=== PATIENT | female | born 1950 | race Caucasian/White ===

== ENCOUNTER 2018-02-22 21:34 | Emergency (ER) | payer BC, OTHER | END 2018-02-22 21:58 | disposition home or self-care (01) | LOC: SCSER 21:34 | DX: L03.114 Cellulitis of left upper limb (principal); I25.2 Old myocardial infarction; E11.9 Type 2 diabetes mellitus without complications; Z87.891 Personal history of nicotine dependence; Z79.899 Other long term (current) drug therapy; Z79.4 Long term (current) use of insulin | CPT/HCPCS: 99283 ==

== ENCOUNTER 2018-07-20 01:42 | Emergency (ER) | payer BC, MEDICARE ==
[2018-07-20] MEDS ORDERED: Ondansetron HCl/PF 4 MG/2 ML Vial ONE (01:57)
[2018-07-20] MEDS ORDERED: Morphine 4 MG/ML VIAL ONE ×2 (01:57→04:55)
[2018-07-20 02:15] LABS: #Eosinphils 0.2 thou/uL (0.0-0.7); #Lymphocytes 1.7 thou/uL (1.20-3.40); #Monocytes 0.9 thou/uL (0.11-0.59); #Neutrophils 10.1 thou/uL (1.40-6.50); %Basophils 0.3 % (0.0-1.0); %Eosinophils 1.8 % (0.0-10.0); Hemoglobin 9.8 g/dL (12.0-16.0); Mean Corpuscular HGB CONC 32.2 g/dL (32.0-36.0); Mean Corpuscular Hemoglobin 27.8 pg (27.0-31.0); Mean Corpuscular Volume 86.3 fL (78.0-98.0); Mean Platelet Volume 6.9 fL (7.4-10.4); Platelet Count 344 thou/uL (130-400); RBC Distribution Width 14.8 % (11.5-14.5); Red Blood Cell (RBC) Count 3.54 mill/uL (4.20-5.40)
[2018-07-20 02:32] LABS: ALT (SGPT) 13 U/L (8-55); AST (SGOT) 16 U/L (5-34); Albumin 3.6 g/dL (3.4-4.8); Alkaline Phosphatase 94 U/L (40-150); Anion Gap 14 mmol/L (10-20); BUN (Urea Nitrogen) 44 mg/dL (9.8-20.1); Bilirubin, Total 0.5 mg/dL (0.2-1.2); Calc. Creatinine Clearance 0 mL/min (70-130); Calcium 9.3 mg/dL (7.8-10.44); Carbon Dioxide 20 mmol/L (23-31); Chloride 107 mmol/L (98-107); Estimated GFR-MDRD 29; Globulin 4.1 g/dL (2.4-3.5); Glucose 127 mg/dL (80-115); Potassium 4.8 mmol/L (3.5-5.1); Protein, Total 7.7 g/dL (6.0-8.3); Sodium 136 mmol/L (136-145)
[2018-07-20] MEDS ORDERED: HYDROcodone/Acetaminophen 5/325 mg Tablet ONE (04:55)
--- NOTE | 2018-07-20 08:02 | RAD ---
LEFT HIP TWO VIEWS: 07/20/2018 HISTORY: Left hip pain after a fall. FINDINGS: No acute fracture or dislocation is seen involving the left hip. No lytic or sclerotic osseous lesio ns are seen. There are osseous corticated densities seen lateral to the greater tuberosity, which ma y be related to tug type lesions or prior injury. Vascular calcifications are seen in the superficia l femoral artery. No other findings. IMPRESSION: No acute osseous abnormality, left hip. POS: [facility]
--- NOTE | 2018-07-20 08:03 | RAD ---
PORTABLE AP CHEST X-RAY: 07/20/2018 HISTORY: Trauma. Left hip pain after fall at home. COMPARISON: 11/16/2014 FINDINGS: The cardiac silhouette is magnified by projection. The pulmonary vasculature is within normal limits . The lungs are clear. Vascular calcification is seen in the coronary arteries and in the thoracic aorta. The lungs are clear. Degenerative changes are seen in the spine. IMPRESSION: No acute cardiopulmonary process. POS: [facility]
--- NOTE | 2018-07-20 08:05 | RAD ---
LEFT HUMERUS TWO VIEWS: 07/20/2018 HISTORY: The patient fell at home. Left hip pain. FINDINGS: There is a metallic electronic device overlying the subcutaneous soft tissues, anterior aspect of the mid left arm. There is no fracture or dislocation seen involving the left humerus. No other osseou s abnormality. IMPRESSION: No acute osseous abnormality, left humerus. POS: [facility]
--- NOTE | 2018-07-20 08:07 | RAD ---
AP VIEW PELVIS: DATE: 07/20/18. HISTORY: Left hip pain after a fall at home. FINDINGS: There is no acute fracture or dislocation. Degenerative changes are seen in the spine. Vascular phil cification is seen in the superficial femoral arteries bilaterally. Phleboliths overlie the right he mipelvis. IMPRESSION: No acute osseous abnormality. POS: [facility]
--- NOTE | 2018-07-20 09:07 | CT ---
PRELIMINARY REPORT/[facility]/EMERGENCY AFTER HOURS PROCEDURE: EXAM: CT Left Lower Extremity Without Intravenous Contrast, Hip EXAM DATE/TIME: Exam ordered 07/20/2018 3:15 AM CLINICAL HISTORY: 67 years old, female; Injury or trauma; Fall; Initial encounter; Abrasion; Hip; Left; Patient HX: Pt fell at home; Left hip pain TECHNIQUE: Axial computed tomography images of the left hip without intravenous contrast. COMPARISON: No relevant prior studies available. FINDINGS: Bones/joints: Normal. No acute fracture. No dislocation. Soft tissues: Normal. IMPRESSION: Normal left hip CT. Thank you for allowing us to participate in the care of your patient. Dictated and Authenticated by: Zack Beltre MD 07/20/2018 4:40 AM Central Time ([place] & [place]) FINAL REPORT CT LEFT HIP NONCONTRAST: DATE: 07/20/18. TIME: Performed on an emergency basis at 0381 hours. HISTORY: Fall. Left hip injury. FINDINGS: Agree with the preliminary report by Dr. Beltre from [facility]. Prominent osteoarthritic melonie nges. No acute osseous abnormalities are demonstrated. POS: [facility]
--- NOTE | 2018-07-28 12:19 | EKG ---
Test Reason : Blood Pressure : / mmHG Vent. Rate : 090 BPM Atrial Rate : 090 BPM P-R Int : 158 ms QRS Dur : 078 ms QT Int : 378 ms P-R-T Axes : 046 -32 052 degrees QTc Int : 462 ms Normal sinus rhythm Left axis deviation Pulmonary disease pattern Abnormal ECG Confirmed by IMANI FRANK ([id number]), tape editor SHARON STEWART ([id number]) on 07/28/2018 12:19:00 PM Referred By: ZAC Confirmed By:IMANI FRANK
== END 2018-07-20 06:18 | disposition home or self-care (01) ==
LOC: ERS 01:42
DX: S70.02XA Contusion of left hip, initial encounter (principal); E11.9 Type 2 diabetes mellitus without complications; I25.2 Old myocardial infarction; Z87.891 Personal history of nicotine dependence; Z79.899 Other long term (current) drug therapy; W06.XXXA Fall from bed, initial encounter
CPT/HCPCS: 71045; 72170; 80053; 85025; 93005; 96361; 96374; 96375; 96376; J2270; J2405

== ENCOUNTER 2018-07-22 13:02 | Inpatient (IN) | payer BC, MEDICARE ==
[2018-07-22 14:16] LABS: Hemoglobin 9.1 g/dL (12.0-16.0); Mean Corpuscular HGB CONC 31.9 g/dL (32.0-36.0); Mean Corpuscular Hemoglobin 27.5 pg (27.0-31.0); Mean Corpuscular Volume 86.1 fL (78.0-98.0); Mean Platelet Volume 6.3 fL (7.4-10.4); Platelet Count 391 thou/uL (130-400); RBC Distribution Width 14.9 % (11.5-14.5); White Blood Cell (WBC) Count 20.4 thou/uL (4.8-10.8)
[2018-07-22 14:21] LABS: Bilirubin Small (Negative); Blood, Urine Negative (Negative); Clarity CLOUDY (Clear); Glucose, Urine (Dipstick) Negative (Negative); Leukocyte Negative (Negative); Nitrite Negative (Negative); Protein, Urine (Dipstick) 30 mg/dL (Neg-Trace)
[2018-07-22 14:24] LABS: RBC/HPF 0-3 HPF (0-3); WBC/HPF 0-3 HPF (0-3)
[2018-07-22 14:27] LABS: Pathc Cast-AUWi Flag 26.45 (0-2.49); Yeast-AUWi Flag 50.1 (0-25.0)
[2018-07-22 14:31] LABS: Anisocytosis SLIGHT = 6-15 cells (100X) (0-5/hpf); Band 13 % (5-11); Hypochromia SLIGHT = 6-15 cells (100X) (0-5/hpf); Lymphocytes 7 % (21-51); MDiff Complete? YES; Monocytes 4 % (0-10); Neutrophil 76 % (42-75); PLT Morphology Comment Appears Adequate
[2018-07-22 14:33] LABS: ALT (SGPT) 19 U/L (8-55); AST (SGOT) 30 U/L (5-34); Albumin 3.2 g/dL (3.4-4.8); Alkaline Phosphatase 101 U/L (40-150); Anion Gap 16 mmol/L (10-20); BUN (Urea Nitrogen) 52 mg/dL (9.8-20.1); Bilirubin, Total 0.7 mg/dL (0.2-1.2); CK (CPK) 379 U/L (29-168); Calc. Creatinine Clearance 0 mL/min (70-130); Calcium 9.2 mg/dL (7.8-10.44); Carbon Dioxide 16 mmol/L (23-31); Chloride 102 mmol/L (98-107); Estimated GFR-MDRD 29; Globulin 4.3 g/dL (2.4-3.5); Glucose 110 mg/dL (80-115); Potassium 4.8 mmol/L (3.5-5.1); Protein, Total 7.5 g/dL (6.0-8.3); Sodium 129 mmol/L (136-145)
[2018-07-22 14:37] LABS: CKMB 4.4 ng/mL (0-6.6); Troponin I Less than 0.010 ng/mL (< 0.028)
[2018-07-22 14:38] LABS: Bacteria/HPF 1+ HPF (None Seen); Hyaline Casts/LPF NONE SEEN LPF (0-3 Hyaline); Manual Microscopic Reviewed? No Path Casts Seen; Yeast-All Forms None Seen HPF (None Seen)
--- NOTE | 2018-07-22 14:55 | CT ---
NONCONTRAST HEAD CT: HISTORY: Generalized weakness. FINDINGS: No parenchymal hemorrhage. No extraaxial hematoma. No midline shift. Basilar cisterns are patent. Brain volume, age appropriate. Cortical briseno-white matter differentiation is preserved. No evidence of hydrocephalus. Calvarium is intact. Adequate aeration of the sinuses and mastoid air cells. IMPRESSION: No acute intracranial process. POS: [facility]
--- NOTE | 2018-07-22 14:59 | RAD ---
PORTABLE CHEST: DATE: 07/22/18. PROVIDED CLINICAL HISTORY: Fall. FINDINGS: Comparison 07/20/18. The cardiac silhouette remains enlarged. Vascular calcification involves the ao rtic arch. No focal consolidation, pleural fluid, or pneumothorax apparent. IMPRESSION: No evidence for an acute cardiopulmonary process. POS: [facility]
--- NOTE | 2018-07-22 15:00 | RAD ---
PELVIC RADIOGRAPH: DATE: 07/22/18. PROVIDED CLINICAL HISTORY: Hip pain status post fall. FINDINGS: Comparison is made with the examination dated 07/20/18. There is no evidence for fracture or other ac ronan osseous abnormality. If there is persistent clinical concern, conservative management and follow up imaging are advised. IMPRESSION: As above. POS: [facility]
[2018-07-22] MEDS ORDERED: Bisacodyl 5 MG TAB PO PRN (18:05)
[2018-07-22] MEDS ORDERED: Calcium Carbonate 500 MG ChewTAB PO PRN (18:05)
[2018-07-22] MEDS ORDERED: Mag-Al 1200 mg/1200 mg/30 ML UDCUP PO PRN (18:05)
[2018-07-22] MEDS ORDERED: Senokot 8.6 MG TAB PO PRN (18:05)
[2018-07-22] MEDS ORDERED: Cepastat Lozenges 1 LOZ PO PRN (18:17)
[2018-07-22 19:59] LABS: Lactic Acid 0.8 mmol/L (0.5-2.2)
[2018-07-22 20:02] LABS: Anion Gap 13 mmol/L (10-20); BUN (Urea Nitrogen) 44 mg/dL (9.8-20.1); Calc. Creatinine Clearance 0 mL/min (70-130); Calcium 8.9 mg/dL (7.8-10.44); Carbon Dioxide 19 mmol/L (23-31); Chloride 102 mmol/L (98-107); Estimated GFR-MDRD 30; Glucose 92 mg/dL (80-115); Potassium 4.8 mmol/L (3.5-5.1); Sodium 129 mmol/L (136-145)
[2018-07-22 20:08] LABS: Troponin I Less than 0.010 ng/mL (< 0.028)
[2018-07-22] MEDS: Famotidine/PF 20 mg/2ml Vial SLOW IVP SCH (21:34)
[2018-07-22] MEDS: Sodium Chloride 0.9% 1,000 ML IV SCH (21:35)
[2018-07-22] MEDS: Heparin 5,000 UNITS/ML VIAL SC SCH (21:47)
--- NOTE | 2018-07-22 21:54 | ULT ---
STANDARD BILATERAL RENAL ULTRASOUND: HISTORY: Acute kidney injury. COMPARISON: None. TECHNIQUE: Real-time, briseno-scale, and color evaluation of the kidneys and urinary bladder were performed. FINDINGS: The right kidney measures 10.7 x 4.8 x 4.6 cm. The left kidney measures 10.7 x 5 x 4.8 cm. No renal mass, hydronephrosis, or abnormal calcifications. The ureteral jets are not seen. The urinary blad elgin is unremarkable. Cholelithiasis is present. IMPRESSION: No evidence of acute obstructive uropathy. POS: [facility]
[2018-07-22 22:01] VITALS: BMI 33.3
[2018-07-23 00:06] LABS: Creatinine, Urine 190.53 mg/dL (47-110); Sodium, Urine Less than 20 mmol/L (Not Available)
[2018-07-23] MEDS: HYDROcodone/Acetaminophen 5/325 mg Tablet PO PRN ×4 (00:32→20:08)
--- NOTE | 2018-07-23 05:58 | PDOC.EVN ---
Event Note - Event Note Event Note: Pt admitted 07/22/18 h&p [id number]
[2018-07-23 05:59] LABS: #Eosinphils 0.1 thou/uL (0.0-0.7); #Lymphocytes 1.1 thou/uL (1.20-3.40); #Monocytes 0.9 thou/uL (0.11-0.59); #Neutrophils 14.8 thou/uL (1.40-6.50); %Basophils 0.1 % (0.0-1.0); %Eosinophils 0.4 % (0.0-10.0); %Lymphocytes 6.5 % (21.0-51.0); Mean Corpuscular HGB CONC 31.6 g/dL (32.0-36.0); Mean Corpuscular Hemoglobin 27.3 pg (27.0-31.0); Mean Corpuscular Volume 86.5 fL (78.0-98.0); Mean Platelet Volume 6.2 fL (7.4-10.4); Platelet Count 369 thou/uL (130-400); RBC Distribution Width 14.8 % (11.5-14.5); Red Blood Cell (RBC) Count 2.93 mill/uL (4.20-5.40); White Blood Cell (WBC) Count 16.9 thou/uL (4.8-10.8)
[2018-07-23] MEDS: Sodium Chloride 0.9% 1,000 ML IV SCH ×2 (06:15→17:01)
[2018-07-23] MEDS: Levothyroxine Sodium 75 MCG TAB PO SCH (06:19)
[2018-07-23 06:23] LABS: Anion Gap 9 mmol/L (10-20); BUN (Urea Nitrogen) 18 mg/dL (9.8-20.1); Calc. Creatinine Clearance 67 mL/min (70-130); Calcium 8.3 mg/dL (7.8-10.44); Carbon Dioxide 19 mmol/L (23-31); Chloride 105 mmol/L (98-107); Estimated GFR-MDRD 40; Glucose 86 mg/dL (80-115); Potassium 4.4 mmol/L (3.5-5.1); Sodium 129 mmol/L (136-145)
--- NOTE | 2018-07-23 06:49 | HP ---
PRIMARY CARE PHYSICIAN: Terell Benson. CHIEF COMPLAINT: Weakness and falling with decreased appetite. HISTORY OF PRESENT ILLNESS: This is a 67-year-old female with a known history of coronary artery dis ease, status post percutaneous coronary intervention, type 2 diabetes who reports multiple progressiv e issues. The patient has been complaining of having a week long history of a sore throat which has resulted in decreased oral intake. She subsequently has been feeling very weak and fell this past Fr iday or approximately 2 days prior to presentation with subsequent hip pain. The patient most recently was treated at an urgent care clinic for presumed cellulitis. Antibiotics, seemingly clindamycin, were started 2 weeks ago for a 2 week duration and the patient has been statu s post completion of her antibiotic course for approximately 3 days. During this time frame of antib iotic use the patient also had frequent diarrhea which is currently resolved. However, even with jerome rrhea resolution the patient's oral intake has been decreased secondary to the sore throat she descri bed above. The patient has been trying over the counter lozenges for her strep throat which appeared to have been improving that single symptom. REVIEW OF SYSTEMS: As per HPI. CONSTITUTIONAL: No documented fever or chills. HEENT: The patient initially had a headache upon presentation to the ER, which is currently resolved . Denies any vision changes. Denies any dizziness or lightheadedness, generalized weakness as descr ibed above. CARDIOVASCULAR: Denies any chest pain, chest pressure, left-sided arm numbness or tingling, denies p alpitations. RESPIRATORY: Denies shortness of breath. Denies cough, sore throat as described as above. Some mil d congestion throughout as well. GASTROINTESTINAL: Decreased oral intake as noted above without nausea or vomiting. No abdominal saleem n. Diarrhea as per HPI, which is currently resolved. GENITOURINARY: Some mild dysuria, otherwise no change in urinary quantity, color or odor. MUSCULOSKELETAL: Left hip pain status post fall, but otherwise no other focal myalgias or arthralgia s. PAST MEDICAL HISTORY: As per above. 1. Significant for insulin-dependent type 2 diabetes. 2. Hypothyroidism. 3. Coronary artery disease, status post PCI in 2003. 4. Status post bilateral shoulder surgery. 5. Status post right hand carpal tunnel release. 6. Status post . 7. Status post tubal ligation. 8. Status post partial hysterectomy. HOME MEDICATIONS: Current regimen includes the followin. Dulaglutide 0.75 mg subcutaneously every 7 days. 2. Prasugrel 10 mg p.o. daily. 3. Sertraline 100 mg p.o. at bedtime. 4. Metoprolol tartrate 25 mg p.o. daily. 5. Levothyroxine 75 mcg p.o. daily. 6. Lisinopril 2.5 mg p.o. daily. 7. Lantus SoloSTAR 50 units subcu q.p.m. 8. Atorvastatin 20 mg p.o. at bedtime. 9. Metformin 500 mg p.o. at bedtime. ALLERGIES: LATEX, ADHESIVE TAPE, LIDOCAINE. FAMILY HISTORY: The patient denies any known family history of gastrointestinal illness. SOCIAL HISTORY: The patient is a former tobacco smoker, quit approximately 10 years ago. She is acc ompanied by her daughter, Yamilet, who was at bedside with her in the emergency department. The [facility] ent does name Yamilet as her medical decision maker if she is unable to make her own medical decision s, and currently endorses being full code. PHYSICAL EXAMINATION: GENERAL: The patient is awake, alert, conversant, in no acute distress, lying on the hospital ER str etcher. HEENT: Normocephalic, atraumatic, slightly dry mucous membranes, difficulty visualizing posterior or opharyngeal mucosa, no sinus tenderness to palpation. CARDIOVASCULAR: S1, S2. No overt murmurs, rubs or gallops. Pulses 2+ bilateral upper Bilateral low er extremities; trace pitting pedal edema. RESPIRATORY: Reasonable air movement. No wheezes, rales or rhonchi. No conversational dyspnea. GASTROINTESTINAL: Positive bowel sounds. Soft, nontender to palpation. MUSCULOSKELETAL: Moving all 4 extremities independently and able to self-reposition in the bed witho ut difficulty or assistance. The patient is notably currently on 4 liters nasal cannula in the emergency department. LABORATORY DATA AND IMAGING: WBC 20.4, hemoglobin 9.8, hematocrit 28.4, platelets 391, neutrophils 7 6%, bands 13%. Sodium 129, potassium 4.8, chloride 102, bicarbonate 16, BUN 52, creatinine 1.74, glu cose 110, calcium 9.2, total bilirubin 0.7, AST 30, ALT 19, alkaline phosphatase 101. Creatinine kin ase 379. Troponin less than 0.01. Total protein 7.5, albumin 3.2. UA is significant for 30 protein , small bilirubin, 11-20 squamous epithelial cells, 1+ urine bacteria. 1. 07/22/2016 - Chest x-ray. Impression: "No evidence for an acute cardiopulmonary process." 2. 07/22/2018 - Pelvis x-ray. Impression: "Comparison is made with examination dated 07/20/2018. There is no evidence for fracture or other acute osseous abnormality. If there is persistent clinica l concern, conservative management and follow up imaging are advised." 3. 07/22/2018 - Brain CT. Impression: "No acute intracranial process." ASSESSMENT AND PLAN: A 67-year-old female who presents with multiple complaints including weakness a nd decreased p.o. or oral intake for a week. 1. Weakness, likely multifactorial, contributors including recent diarrheal illness, decreased oral intake, all contributing to a component of dehydration. Continue with hydration and close monitoring of intake and output. 2. Decreased oral intake, appears to be currently driven predominantly by odynophagia described by t pam patient. Continue with supportive management, swab for possibility of strep. 3. Leukocytosis of unclear etiology. The patient's UA is suggestive of the possibility of urinary t ract infection versus a dirty urine. Recheck a UA, check urine culture for confirmation, and add emp iric antibiotics given the patient's overall presentation. Recheck CBC in the morning. Chest x-ray unrevealing. Check a lactic acid. Unclear if there is a source of infection, particularly where it may be. Check for Clostridium difficile or any other stool infection as the patient does have recurr ent diarrhea, however, she denies having had any in the last 3 days. 4. Recent diarrhea, likely consistent with antibiotic use as the patient was on clindamycin. While this raises the patient's risk of Clostridium difficile diarrhea, the patient currently has not had a ny loose bowel movements for the last 3 days. 5. Acute kidney injury without known history of chronic renal disease. Continue to closely monitor, suspect a prerenal etiology. Check urine electrolytes, check renal ultrasound, repeat a BMP. 6. Hyponatremia, as the patient is clinically dehydrated, we will continue with hydration utilizing normal saline and continue to serially monitor the basic metabolic panel. The patient's mentation ap pears to be at baseline per family at bedside. 7. Insulin-dependent diabetes, continue the patient on her home regimen with close monitoring of her serum and Accu-Chek blood glucose levels. 8. History of coronary artery disease. Continue the patient on her home regimen including her beta tomas, prasugrel. We will hold the patient's lisinopril and metformin secondary to renal dysfuncti on, but expect that these may likely be resumed at discharge as the patient's renal function stabiliz es. 9. Diet: Cardiac, diabetic. 10. Activity: Out of bed as tolerated. 11. Deep venous thrombosis prophylaxis with heparin. Thank you for asking me to care for your patient. With questions or concerns, please contact me at [facility].
[2018-07-23] MEDS ORDERED: Milk Of Magnesia 30 ML UDCUP PO PRN (08:09)
[2018-07-23] MEDS ORDERED: Loperamide HCl 2 MG CAP PO PRN (08:09)
[2018-07-23] MEDS ORDERED: Diabetic Tussin 200 MG/10 ML UDCUP PO PRN (08:09)
[2018-07-23] MEDS ORDERED: Chloraseptic Spray 180 ml Bottle PO PRN (08:09)
[2018-07-23] MEDS ORDERED: hydrALAZINE 20 MG/ML VIAL SLOW IVP PRN (08:09)
[2018-07-23] MEDS ORDERED: Ondansetron ODT 4 MG TAB PO PRN (08:09)
[2018-07-23] MEDS ORDERED: Ondansetron HCl/PF 4 MG/2 ML Vial IVP PRN (08:09)
[2018-07-23] MEDS ORDERED: Loratadine 10 MG TAB PO PRN (08:09)
[2018-07-23] MEDS ORDERED: Temazepam 15 MG CAP PO PRN (08:09)
[2018-07-23] MEDS ORDERED: Eucerin (Mineral Oil/Petrolatum,White) 30 gm Jar TOP PRN (08:09)
[2018-07-23] MEDS ORDERED: Artificial Tears 18 DROP/0.9 ML EA EYE PRN (08:09)
[2018-07-23] MEDS: Prasugrel 10 MG TAB PO SCH (08:59)
[2018-07-23] MEDS: Heparin 5,000 UNITS/ML VIAL SC SCH ×3 (08:59→20:02)
[2018-07-23] MEDS: Metoprolol Tartrate 25 MG TAB PO SCH (08:59)
[2018-07-23] MEDS ORDERED: Prevnar 13-Val Conj/PF 0.5 ML SYRINGE IM ONE (09:00)
[2018-07-23] MEDS ORDERED: Enoxaparin Sodium 30 MG/0.3 ML SYRINGE SC SCH (09:00)
--- NOTE | 2018-07-23 11:38 | PDOC.PN ---
- Subjective Encounter Start Date: 07/23/18 Encounter Start Time: 08:50 -: old records requested/rev pt is very weak, has no vomiting, no fever, overall stable but not back to baseline - Objective Resuscitation Status: Resuscitation Status FULL:Full Resuscitation MAR Reviewed: Yes Vital Signs & Weight: Vital Signs (12 hours) Temp Pulse Resp BP Pulse Ox 07/23/18 08:01 98 F 82 17 116/71 99 07/23/18 04:24 98.3 F 85 15 101/64 100 07/23/18 00:00 98.3 F 90 18 119/75 99 Weight Weight 219 lb I&O: 07/22/18 07/23/18 07/24/18 06:59 06:59 06:59 Intake Total 1510 Balance 1510 Result Diagrams: 07/23/18 05:45 07/23/18 05:45 Additional Labs: Accuchecks 07/23/18 07/22/18 06:18 20:07 POC Glucose 92 107 Radiology Reviewed by me: Yes Phys Exam - Physical Examination Constitutional: NAD HEENT: PERRLA, moist MMs, sclera anicteric Neck: no JVD, supple Respiratory: no wheezing, no rales, no rhonchi Cardiovascular: RRR, no significant murmur, no rub Gastrointestinal: soft, non-tender, no distention, positive bowel sounds Musculoskeletal: no edema, pulses present Neurological: non-focal, normal sensation, moves all 4 limbs Lymphatic: no nodes Psychiatric: normal affect, A&O x 3 Skin: no rash, normal turgor Dx/Plan (1) Cellulitis of left hand Code(s): L03.114 - CELLULITIS OF LEFT UPPER LIMB Status: Acute (2) Acute kidney failure Status: Acute (3) Dehydration Code(s): E86.0 - DEHYDRATION Status: Acute (4) Hyponatremia Code(s): E87.1 - HYPO-OSMOLALITY AND HYPONATREMIA Status: Acute (5) Leucocytosis Code(s): D72.829 - ELEVATED WHITE BLOOD CELL COUNT, UNSPECIFIED Status: Acute Comment: due to 1 and UTI (6) UTI (urinary tract infection) Status: Acute (7) Weakness generalized Code(s): R53.1 - WEAKNESS Status: Acute (8) Anemia, normocytic normochromic Code(s): D64.9 - ANEMIA, UNSPECIFIED Status: Chronic (9) Anxiety and depression Code(s): F41.9 - ANXIETY DISORDER, UNSPECIFIED; F32.9 - MAJOR DEPRESSIVE DISORDER, SINGLE EPISODE, UNSPECIFIED Status: Chronic (10) CAD (coronary artery disease) Code(s): I25.10 - ATHSCL HEART DISEASE OF [place] CORONARY ARTERY W/O ANG PCTRS Status: Chronic (11) Diabetes type 2, controlled Code(s): E11.9 - TYPE 2 DIABETES MELLITUS WITHOUT COMPLICATIONS Status: Chronic (12) Dyslipidemia Code(s): E78.5 - HYPERLIPIDEMIA, UNSPECIFIED Status: Chronic (13) Hypertension Code(s): I10 - ESSENTIAL (PRIMARY) HYPERTENSION Status: Chronic (14) Hypothyroidism Code(s): E03.9 - HYPOTHYROIDISM, UNSPECIFIED Status: Chronic (15) Obesity (BMI 30.0-34.9) Code(s): E66.9 - OBESITY, UNSPECIFIED Status: Chronic - Plan cont current plan of care, PT/OT * check CRP, Uric acid, * start rocephin * continue levaquin * continue IVF * follow culture * medication reviewed as below * symptomatic treatment * pain control * change to inpt status * continue PT. * home medication reconciled Review of Systems - Review of Systems Constitutional: weakness. negative: fever, chills, sweats, malaise, other ENT: negative: Ear Pain, Ear Discharge, Nose Pain, Nose Discharge, Nose Congestion, Mouth Pain, Mouth Swelling, Throat Pain, Throat Swelling, Other Respiratory: negative: Cough, Dry, Shortness of Breath, Hemoptysis, SOB with Excertion, Pleuritic Pain, Sputum, Wheezing Cardiovascular: negative: chest pain, palpitations, orthopnea, paroxysmal nocturnal dyspnea, edema, light headedness, other Gastrointestinal: negative: Nausea, Vomiting, Abdominal Pain, Diarrhea, Constipation, Melena, Hematochezia, Other Genitourinary: negative: Dysuria, Frequency, Incontinence, Hematuria, Retention , Other Musculoskeletal: Hand Pain. negative: Neck Pain, Shoulder Pain, Arm Pain, Back Pain, Leg Pain, Foot Pain, Other - Medications/Allergies Allergies/Adverse Reactions: Allergies Allergy/AdvReac Type Severity Reaction Status Date / Time adhesive tape Allergy Verified 07/22/18 22:00 latex Allergy Verified 07/22/18 22:00 lidocaine Allergy Verified 07/22/18 22:00 Medications: Current Medications Acetaminophen (Tylenol) 650 mg PO Q4H PRN PRN Reason: Headache/Fever or Pain Hydrocodone Bitart/Acetaminophen ([place] 5/325) 1 tab PO Q4H PRN PRN Reason: Moderate Pain (4-6) Hydrocodone Bitart/Acetaminophen ([place] 5/325) 2 tab PO Q4H PRN PRN Reason: Severe Pain (7-10) Last Admin: 07/23/18 08:57 Dose: 2 tab Al Hydroxide/Mg Hydroxide (Maalox) 30 ml PO Q6H PRN PRN Reason: Heartburn or Indigestion Albuterol/Ipratropium (Duoneb) 3 ml NEB [id number] PRN PRN Reason: SOB &/or Wheezing Artificial Tears (Tears Naturale) 0 drop EA EYE PRN PRN PRN Reason: Dry Eyes Atorvastatin Calcium (Lipitor) 20 mg PO HS [facility] Bisacodyl (Dulcolax) 10 mg PO DAILYPRN PRN PRN Reason: Constipation Calcium Carbonate (Tums) 1,000 mg PO Q4H PRN PRN Reason: Heartburn or Indigestion Famotidine (Pepcid) 20 mg SLOW IVP 2100 [facility] Last Admin: 07/22/18 21:34 Dose: 20 mg Guaifenesin (Robitussin Sf) 200 mg PO Q4H PRN PRN Reason: Cough Heparin Sodium (Porcine) (Heparin) 5,000 units SC TID [facility] Last Admin: 07/23/18 08:59 Dose: 5,000 units Hydralazine HCl (Apresoline) 10 mg SLOW IVP Q4H PRN PRN Reason: Systolic BP > 180 Sodium Chloride (Normal Saline 0.9%) 1,000 mls @ 100 mls/hr IV .Q10H [facility] Last Admin: 07/23/18 06:15 Dose: 1,000 mls Levofloxacin 750 mg/ Device 150 mls @ 100 mls/hr IVPB Q2D [facility] Insulin Glargine 50 units/ (Miscellaneous Medication) 0.5 mls @ 0 mls/hr SC HS [facility] Levothyroxine Sodium (Synthroid) 75 mcg PO 0600 [facility] Last Admin: 07/23/18 06:19 Dose: 75 mcg Loperamide HCl (Imodium) 2 mg PO PRN PRN PRN Reason: Diarrhea/Loose Stools Loratadine (Claritin) 10 mg PO DAILYPRN PRN PRN Reason: Sinus Symptoms Magnesium Hydroxide (Milk Of Magnesium) 30 ml PO DAILYPRN PRN PRN Reason: Constipation Metoprolol Tartrate (Lopressor) 25 mg PO DAILY [facility] Last Admin: 07/23/18 08:59 Dose: 25 mg Mineral Oil/White Petrolatum (Eucerin Cream) 0 gm TOP BIDPRN PRN PRN Reason: Dry Skin Miscellaneous Medication (Pharmacy To Dose) 1 each IVPB PRN PRN PRN Reason: Pharmacy to dose Ondansetron HCl (Zofran Odt) 4 mg PO Q6H PRN PRN Reason: Nausea/Vomiting Ondansetron HCl (Zofran) 4 mg IVP Q6H PRN PRN Reason: Nausea/Vomiting Phenol (Chloraseptic [place] 180 Ml Bot) 0 ml PO PRN PRN PRN Reason: Sore Throat Prasugrel (Effient) 10 mg PO DAILY [facility] Last Admin: 07/23/18 08:59 Dose: 10 mg Senna (Senokot) 2 tab PO HSPRN PRN PRN Reason: Constipation Sertraline HCl (Zoloft) 100 mg PO HS [facility] Sodium Chloride ([place] Nasal [place] 0.65%) 0 ml EA NARE QIDPRN PRN PRN Reason: Nasal Congestion Temazepam (Restoril) 15 mg PO HSPRN PRN PRN Reason: Insomnia Throat Lozenges (Cepastat Lozenges) 1 christi PO Q2H PRN PRN Reason: Sore Throat
[2018-07-23 13:02] LABS: Uric Acid 7.7 mg/dL (2.6-6.0)
[2018-07-23] MEDS: cefTRIAXone\\ROCEPHIN 1 GM in Sodium Chloride 0.9% 100 ML IVPB SCH (13:11)
[2018-07-23 13:26] LABS: CRP (Inflammatory) 36.09 mg/dL (= or < 0.5)
[2018-07-23] MEDS ORDERED: Mag-Al 1200 mg/1200 mg/30 ML UDCUP PO SCH (16:15)
[2018-07-23 19:34] LABS: Anion Gap 11 mmol/L (10-20); BUN (Urea Nitrogen) 42 mg/dL (9.8-20.1); Calc. Creatinine Clearance 71 mL/min (70-130); Calcium 8.5 mg/dL (7.8-10.44); Carbon Dioxide 18 mmol/L (23-31); Chloride 106 mmol/L (98-107); Estimated GFR-MDRD 43; Glucose 90 mg/dL (80-115); Potassium 4.4 mmol/L (3.5-5.1); Sodium 131 mmol/L (136-145)
[2018-07-23] MEDS: Famotidine/PF 20 mg/2ml Vial SLOW IVP SCH (20:02)
[2018-07-23] MEDS: Atorvastatin Calcium 20 MG TAB PO SCH (20:02)
[2018-07-23] MEDS: Insulin Glargine 50 UNITS in Pre-Filled Syringe 1 EACH SC SCH (20:02)
[2018-07-23] MEDS ORDERED: Non-Formulary Item 1 EACH (Insulin Glargine,Hum.Rec.Anlog [Lantus Solostar] 50 UNIT) SQ SCH (21:00)
[2018-07-24] MEDS: Sodium Chloride 0.9% 1,000 ML IV SCH ×3 (01:00→20:16)
[2018-07-24 04:59] LABS: #Eosinphils 0.2 thou/uL (0.0-0.7); #Lymphocytes 1.6 thou/uL (1.20-3.40); #Monocytes 0.8 thou/uL (0.11-0.59); #Neutrophils 14.5 thou/uL (1.40-6.50); %Basophils 0.1 % (0.0-1.0); %Eosinophils 1.3 % (0.0-10.0); %Lymphocytes 9.4 % (21.0-51.0); %Monocytes 4.7 % (0.0-10.0); %Neutrophils 84.6 % (42.0-75.0); Hemoglobin 8.4 g/dL (12.0-16.0); Mean Corpuscular HGB CONC 31.2 g/dL (32.0-36.0); Mean Corpuscular Hemoglobin 27.3 pg (27.0-31.0); Mean Corpuscular Volume 87.5 fL (78.0-98.0); Mean Platelet Volume 6.4 fL (7.4-10.4); Platelet Count 427 thou/uL (130-400); RBC Distribution Width 14.9 % (11.5-14.5); Red Blood Cell (RBC) Count 3.07 mill/uL (4.20-5.40); White Blood Cell (WBC) Count 17.1 thou/uL (4.8-10.8)
[2018-07-24] MEDS: Levothyroxine Sodium 75 MCG TAB PO SCH (05:29)
[2018-07-24 06:38] LABS: Anion Gap 13 mmol/L (10-20); BUN (Urea Nitrogen) 37 mg/dL (9.8-20.1); Calc. Creatinine Clearance 82 mL/min (70-130); Calcium 8.5 mg/dL (7.8-10.44); Carbon Dioxide 17 mmol/L (23-31); Chloride 109 mmol/L (98-107); Estimated GFR-MDRD 51; Potassium 4.3 mmol/L (3.5-5.1); Sodium 135 mmol/L (136-145)
[2018-07-24 06:41] LABS: Glucose 42 mg/dL (80-115)
[2018-07-24] MEDS: Heparin 5,000 UNITS/ML VIAL SC SCH ×3 (10:43→20:18)
[2018-07-24] MEDS: Prasugrel 10 MG TAB PO SCH (10:45)
[2018-07-24] MEDS: Metoprolol Tartrate 25 MG TAB PO SCH (10:45)
--- NOTE | 2018-07-24 12:41 | PDOC.PN ---
- Subjective Encounter Start Date: 07/24/18 Encounter Start Time: 09:45 pt is still overall weak, has diffuse muscle pain, no fever - Objective Resuscitation Status: Resuscitation Status FULL:Full Resuscitation MAR Reviewed: Yes Vital Signs & Weight: Vital Signs (12 hours) Temp Pulse Resp BP Pulse Ox 07/24/18 11:06 98.7 F 98 22 H 159/72 H 97 07/24/18 07:16 98.4 F 89 20 144/76 H 96 07/24/18 04:00 98.5 F 97 20 142/73 H 94 L Weight Weight 219 lb I&O: 07/23/18 07/24/18 07/25/18 06:59 06:59 06:59 Intake Total 1510 1820 Balance 1510 1820 Result Diagrams: 07/24/18 03:29 07/24/18 03:29 Additional Labs: Accuchecks 07/24/18 07/24/18 07/24/18 11:09 06:13 04:37 POC Glucose 109 120 H 64 L 07/23/18 07/23/18 19:59 16:31 POC Glucose 100 92 Phys Exam - Physical Examination Constitutional: NAD HEENT: PERRLA, moist MMs, sclera anicteric Neck: no JVD, supple Respiratory: no wheezing, no rales, no rhonchi Cardiovascular: RRR, no significant murmur, no rub Gastrointestinal: soft, non-tender, no distention, positive bowel sounds Musculoskeletal: no edema, pulses present Neurological: non-focal, normal sensation Psychiatric: normal affect, A&O x 3 Skin: no rash, normal turgor Dx/Plan (1) Cellulitis of left hand Code(s): L03.114 - CELLULITIS OF LEFT UPPER LIMB Status: Acute (2) Acute kidney failure Status: Acute (3) Dehydration Code(s): E86.0 - DEHYDRATION Status: Acute (4) Hyponatremia Code(s): E87.1 - HYPO-OSMOLALITY AND HYPONATREMIA Status: Acute (5) Leucocytosis Code(s): D72.829 - ELEVATED WHITE BLOOD CELL COUNT, UNSPECIFIED Status: Acute Comment: due to 1 and UTI (6) UTI (urinary tract infection) Status: Acute (7) Weakness generalized Code(s): R53.1 - WEAKNESS Status: Acute (8) Anemia, normocytic normochromic Code(s): D64.9 - ANEMIA, UNSPECIFIED Status: Chronic (9) Anxiety and depression Code(s): F41.9 - ANXIETY DISORDER, UNSPECIFIED; F32.9 - MAJOR DEPRESSIVE DISORDER, SINGLE EPISODE, UNSPECIFIED Status: Chronic (10) CAD (coronary artery disease) Code(s): I25.10 - ATHSCL HEART DISEASE OF [place] CORONARY ARTERY W/O ANG PCTRS Status: Chronic (11) Diabetes type 2, controlled Code(s): E11.9 - TYPE 2 DIABETES MELLITUS WITHOUT COMPLICATIONS Status: Chronic (12) Dyslipidemia Code(s): E78.5 - HYPERLIPIDEMIA, UNSPECIFIED Status: Chronic (13) Hypertension Code(s): I10 - ESSENTIAL (PRIMARY) HYPERTENSION Status: Chronic (14) Hypothyroidism Code(s): E03.9 - HYPOTHYROIDISM, UNSPECIFIED Status: Chronic (15) Obesity (BMI 30.0-34.9) Code(s): E66.9 - OBESITY, UNSPECIFIED Status: Chronic - Plan cont current plan of care, continue antibiotics, PT/OT, clinical social work therapist * continue PT/OT * continue rocephin and levaquin * medication reviewed as below * symptomatic treatment * may need placement on discharge. Review of Systems - Review of Systems Constitutional: weakness. negative: fever, chills, sweats, malaise, other ENT: negative: Ear Pain, Ear Discharge, Nose Pain, Nose Discharge, Nose Congestion, Mouth Pain, Mouth Swelling, Throat Pain, Throat Swelling, Other Respiratory: negative: Cough, Dry, Shortness of Breath, Hemoptysis, SOB with Excertion, Pleuritic Pain, Sputum, Wheezing Cardiovascular: negative: chest pain, palpitations, orthopnea, paroxysmal nocturnal dyspnea, edema, light headedness, other Gastrointestinal: negative: Nausea, Vomiting, Abdominal Pain, Diarrhea, Constipation, Melena, Hematochezia, Other Genitourinary: negative: Dysuria, Frequency, Incontinence, Hematuria, Retention , Other Skin: negative: Rash, Lesions, Henrry, Bruising, Other - Medications/Allergies Allergies/Adverse Reactions: Allergies Allergy/AdvReac Type Severity Reaction Status Date / Time adhesive tape Allergy Verified 07/22/18 22:00 latex Allergy Verified 07/22/18 22:00 lidocaine Allergy Verified 07/22/18 22:00 Medications: Current Medications Acetaminophen (Tylenol) 650 mg PO Q4H PRN PRN Reason: Headache/Fever or Pain Hydrocodone Bitart/Acetaminophen ([place] 5/325) 1 tab PO Q4H PRN PRN Reason: Moderate Pain (4-6) Last Admin: 07/23/18 20:08 Dose: 1 tab Hydrocodone Bitart/Acetaminophen ([place] 5/325) 2 tab PO Q4H PRN PRN Reason: Severe Pain (7-10) Last Admin: 07/23/18 08:57 Dose: 2 tab Al Hydroxide/Mg Hydroxide (Maalox) 30 ml PO Q6H PRN PRN Reason: Heartburn or Indigestion Albuterol/Ipratropium (Duoneb) 3 ml NEB [id number] PRN PRN Reason: SOB &/or Wheezing Artificial Tears (Tears Naturale) 0 drop EA EYE PRN PRN PRN Reason: Dry Eyes Atorvastatin Calcium (Lipitor) 20 mg PO [facility] Last Admin: 07/23/18 20:02 Dose: 20 mg Bisacodyl (Dulcolax) 10 mg PO DAILYPRN PRN PRN Reason: Constipation Calcium Carbonate (Tums) 1,000 mg PO Q4H PRN PRN Reason: Heartburn or Indigestion Famotidine (Pepcid) 20 mg SLOW IVP 2100 [facility] Last Admin: 07/23/18 20:02 Dose: 20 mg Guaifenesin (Robitussin Sf) 200 mg PO Q4H PRN PRN Reason: Cough Heparin Sodium (Porcine) (Heparin) 5,000 units SC TID [facility] Last Admin: 07/24/18 10:43 Dose: 5,000 units Hydralazine HCl (Apresoline) 10 mg SLOW IVP Q4H PRN PRN Reason: Systolic BP > 180 Sodium Chloride (Normal Saline 0.9%) 1,000 mls @ 100 mls/hr IV .Q10H [facility] Last Admin: 07/24/18 01:00 Dose: 1,000 mls Levofloxacin 750 mg/ Device 150 mls @ 100 mls/hr IVPB Q2D [facility] Insulin Glargine 50 units/ (Miscellaneous Medication) 0.5 mls @ 0 mls/hr SC [facility] Last Admin: 07/23/18 20:02 Dose: 0.5 mls Ceftriaxone Sodium 1 gm/ (Sodium Chloride) 100 mls @ 200 mls/hr IVPB Q24HR [facility] Last Admin: 07/23/18 13:11 Dose: 100 mls Levothyroxine Sodium (Synthroid) 75 mcg PO 0600 [facility] Last Admin: 07/24/18 05:29 Dose: 75 mcg Loperamide HCl (Imodium) 2 mg PO PRN PRN PRN Reason: Diarrhea/Loose Stools Loratadine (Claritin) 10 mg PO DAILYPRN PRN PRN Reason: Sinus Symptoms Magnesium Hydroxide (Milk Of Magnesium) 30 ml PO DAILYPRN PRN PRN Reason: Constipation Metoprolol Tartrate (Lopressor) 25 mg PO DAILY [facility] Last Admin: 07/24/18 10:45 Dose: 25 mg Mineral Oil/White Petrolatum (Eucerin Cream) 0 gm TOP BIDPRN PRN PRN Reason: Dry Skin Miscellaneous Medication (Pharmacy To Dose) 1 each IVPB PRN PRN PRN Reason: Pharmacy to dose Ondansetron HCl (Zofran Odt) 4 mg PO Q6H PRN PRN Reason: Nausea/Vomiting Ondansetron HCl (Zofran) 4 mg IVP Q6H PRN PRN Reason: Nausea/Vomiting Phenol (Chloraseptic [place] 180 Ml Bot) 0 ml PO PRN PRN PRN Reason: Sore Throat Prasugrel (Effient) 10 mg PO DAILY [facility] Last Admin: 07/24/18 10:45 Dose: 10 mg Senna (Senokot) 2 tab PO HSPRN PRN PRN Reason: Constipation Sertraline HCl (Zoloft) 100 mg PO HS [facility] Last Admin: 07/23/18 20:02 Dose: 100 mg Sodium Chloride ([place] Nasal [place] 0.65%) 0 ml EA NARE QIDPRN PRN PRN Reason: Nasal Congestion Temazepam (Restoril) 15 mg PO HSPRN PRN PRN Reason: Insomnia Throat Lozenges (Cepastat Lozenges) 1 christi PO Q2H PRN PRN Reason: Sore Throat
[2018-07-24] MEDS: cefTRIAXone\\ROCEPHIN 1 GM in Sodium Chloride 0.9% 100 ML IVPB SCH (12:51)
[2018-07-24 19:12] LABS: Anion Gap 10 mmol/L (10-20); BUN (Urea Nitrogen) 27 mg/dL (9.8-20.1); Calc. Creatinine Clearance 88 mL/min (70-130); Calcium 8.6 mg/dL (7.8-10.44); Carbon Dioxide 18 mmol/L (23-31); Chloride 108 mmol/L (98-107); Estimated GFR-MDRD 56; Glucose 105 mg/dL (80-115); Potassium 4.2 mmol/L (3.5-5.1); Sodium 132 mmol/L (136-145)
[2018-07-24] MEDS: Famotidine/PF 20 mg/2ml Vial SLOW IVP SCH (20:16)
[2018-07-24] MEDS: Atorvastatin Calcium 20 MG TAB PO SCH (20:16)
[2018-07-24] MEDS: Insulin Glargine 50 UNITS in Pre-Filled Syringe 1 EACH SC SCH (20:19)
[2018-07-24] MEDS: Acetaminophen 325 MG TAB PO PRN (20:22)
[2018-07-25] MEDS: Sodium Chloride 0.9% 1,000 ML IV SCH (05:37)
[2018-07-25] MEDS: Levothyroxine Sodium 75 MCG TAB PO SCH (05:38)
[2018-07-25 05:59] LABS: #Eosinphils 0.1 thou/uL (0.0-0.7); #Lymphocytes 1.4 thou/uL (1.20-3.40); #Monocytes 1.4 thou/uL (0.11-0.59); %Basophils 0.1 % (0.0-1.0); %Eosinophils 0.6 % (0.0-10.0); %Lymphocytes 7.6 % (21.0-51.0); %Monocytes 7.4 % (0.0-10.0); %Neutrophils 84.4 % (42.0-75.0); Mean Corpuscular HGB CONC 30.4 g/dL (32.0-36.0); Mean Corpuscular Hemoglobin 26.4 pg (27.0-31.0); Mean Corpuscular Volume 86.9 fL (78.0-98.0); Mean Platelet Volume 6.3 fL (7.4-10.4); Platelet Count 466 thou/uL (130-400); RBC Distribution Width 14.9 % (11.5-14.5); Red Blood Cell (RBC) Count 3.03 mill/uL (4.20-5.40)
[2018-07-25] MEDS: Metoprolol Tartrate 25 MG TAB PO SCH (09:36)
[2018-07-25] MEDS: Prasugrel 10 MG TAB PO SCH (09:36)
[2018-07-25] MEDS: Heparin 5,000 UNITS/ML VIAL SC SCH ×3 (09:36→20:34)
[2018-07-25] MEDS ORDERED: ISOVUE-370 76%-LOCM 1 ML ONE (10:11)
--- NOTE | 2018-07-25 11:16 | PDOC.PN ---
- Subjective Encounter Start Date: 07/25/18 Encounter Start Time: 09:10 pt is weak, no fever, wbc is rising, - Objective Resuscitation Status: Resuscitation Status FULL:Full Resuscitation MAR Reviewed: Yes Vital Signs & Weight: Vital Signs (12 hours) Temp Pulse Resp BP Pulse Ox 07/25/18 08:15 98.2 F 92 20 161/83 H 96 07/25/18 08:00 96 07/25/18 00:19 98.7 F Weight Weight 219 lb I&O: 07/24/18 07/25/18 07/26/18 06:59 06:59 06:59 Intake Total 1820 2719 Balance 1820 2719 Result Diagrams: 07/25/18 04:34 07/24/18 18:42 Additional Labs: Accuchecks 07/25/18 07/25/18 07/24/18 06:59 05:35 20:12 POC Glucose 94 63 L 91 07/24/18 07/24/18 15:51 11:09 POC Glucose 118 H 109 Radiology Reviewed by me: Yes (CT abdomen) Phys Exam - Physical Examination Constitutional: NAD HEENT: PERRLA, moist MMs, sclera anicteric Neck: no JVD, supple Respiratory: no wheezing, no rales, no rhonchi Cardiovascular: RRR, no significant murmur, no rub Gastrointestinal: soft, no distention, positive bowel sounds Musculoskeletal: no edema, pulses present Neurological: non-focal, normal sensation, moves all 4 limbs Psychiatric: normal affect, A&O x 3 Skin: no rash, normal turgor Dx/Plan (1) Cellulitis of left hand Code(s): L03.114 - CELLULITIS OF LEFT UPPER LIMB Status: Acute (2) Acute kidney failure Status: Acute (3) Dehydration Code(s): E86.0 - DEHYDRATION Status: Acute (4) Hyponatremia Code(s): E87.1 - HYPO-OSMOLALITY AND HYPONATREMIA Status: Acute (5) Leucocytosis Code(s): D72.829 - ELEVATED WHITE BLOOD CELL COUNT, UNSPECIFIED Status: Acute Comment: due to 1 and UTI (6) UTI (urinary tract infection) Status: Acute (7) Weakness generalized Code(s): R53.1 - WEAKNESS Status: Acute (8) Anemia, normocytic normochromic Code(s): D64.9 - ANEMIA, UNSPECIFIED Status: Chronic (9) Anxiety and depression Code(s): F41.9 - ANXIETY DISORDER, UNSPECIFIED; F32.9 - MAJOR DEPRESSIVE DISORDER, SINGLE EPISODE, UNSPECIFIED Status: Chronic (10) CAD (coronary artery disease) Code(s): I25.10 - ATHSCL HEART DISEASE OF [place] CORONARY ARTERY W/O ANG PCTRS Status: Chronic (11) Diabetes type 2, controlled Code(s): E11.9 - TYPE 2 DIABETES MELLITUS WITHOUT COMPLICATIONS Status: Chronic (12) Dyslipidemia Code(s): E78.5 - HYPERLIPIDEMIA, UNSPECIFIED Status: Chronic (13) Hypertension Code(s): I10 - ESSENTIAL (PRIMARY) HYPERTENSION Status: Chronic (14) Hypothyroidism Code(s): E03.9 - HYPOTHYROIDISM, UNSPECIFIED Status: Chronic (15) Obesity (BMI 30.0-34.9) Code(s): E66.9 - OBESITY, UNSPECIFIED Status: Chronic - Plan cont current plan of care, continue antibiotics * will get CT abdomen and pelvis to rule out any abdominal process for her high WBC count * continue rocephin and levaquin * she will need rehab placement * medication reviewed as below * symptomatic treatment. Review of Systems - Review of Systems Constitutional: weakness. negative: fever, chills, sweats, malaise, other Eyes: negative: Pain, Vision Change, Conjunctivae Inflammation, Eyelid Inflammation, Redness, Other ENT: negative: Ear Pain, Ear Discharge, Nose Pain, Nose Discharge, Nose Congestion, Mouth Pain, Mouth Swelling, Throat Pain, Throat Swelling, Other Respiratory: negative: Cough, Dry, Shortness of Breath, Hemoptysis, SOB with Excertion, Pleuritic Pain, Sputum, Wheezing Cardiovascular: negative: chest pain, palpitations, orthopnea, paroxysmal nocturnal dyspnea, edema, light headedness, other Gastrointestinal: negative: Nausea, Vomiting, Abdominal Pain, Diarrhea, Constipation, Melena, Hematochezia, Other Genitourinary: negative: Dysuria, Frequency, Incontinence, Hematuria, Retention , Other Musculoskeletal: negative: Neck Pain, Shoulder Pain, Arm Pain, Back Pain, Hand Pain, Leg Pain, Foot Pain, Other Skin: negative: Rash, Lesions, Henrry, Bruising, Other - Medications/Allergies Allergies/Adverse Reactions: Allergies Allergy/AdvReac Type Severity Reaction Status Date / Time adhesive tape Allergy Verified 07/22/18 22:00 latex Allergy Verified 07/22/18 22:00 lidocaine Allergy Verified 07/22/18 22:00 Medications: Current Medications Acetaminophen (Tylenol) 650 mg PO Q4H PRN PRN Reason: Headache/Fever or Pain Last Admin: 07/24/18 20:22 Dose: 650 mg Hydrocodone Bitart/Acetaminophen ([place] 5/325) 1 tab PO Q4H PRN PRN Reason: Moderate Pain (4-6) Last Admin: 07/23/18 20:08 Dose: 1 tab Hydrocodone Bitart/Acetaminophen ([place] 5/325) 2 tab PO Q4H PRN PRN Reason: Severe Pain (7-10) Last Admin: 07/23/18 08:57 Dose: 2 tab Al Hydroxide/Mg Hydroxide (Maalox) 30 ml PO Q6H PRN PRN Reason: Heartburn or Indigestion Albuterol/Ipratropium (Duoneb) 3 ml NEB [id number] PRN PRN Reason: SOB &/or Wheezing Artificial Tears (Tears Naturale) 0 drop EA EYE PRN PRN PRN Reason: Dry Eyes Atorvastatin Calcium (Lipitor) 20 mg PO HS [facility] Last Admin: 07/24/18 20:16 Dose: 20 mg Bisacodyl (Dulcolax) 10 mg PO DAILYPRN PRN PRN Reason: Constipation Calcium Carbonate (Tums) 1,000 mg PO Q4H PRN PRN Reason: Heartburn or Indigestion Famotidine (Pepcid) 20 mg SLOW IVP 2100 [facility] Last Admin: 07/24/18 20:16 Dose: 20 mg Guaifenesin (Robitussin Sf) 200 mg PO Q4H PRN PRN Reason: Cough Heparin Sodium (Porcine) (Heparin) 5,000 units SC TID [facility] Last Admin: 07/25/18 09:36 Dose: 5,000 units Hydralazine HCl (Apresoline) 10 mg SLOW IVP Q4H PRN PRN Reason: Systolic BP > 180 Sodium Chloride (Normal Saline 0.9%) 1,000 mls @ 100 mls/hr IV .Q10H [facility] Last Admin: 07/25/18 05:37 Dose: 1,000 mls Levofloxacin 750 mg/ Device 150 mls @ 100 mls/hr IVPB Q2D [facility] Last Admin: 07/24/18 20:14 Dose: 150 mls Insulin Glargine 50 units/ (Miscellaneous Medication) 0.5 mls @ 0 mls/hr SC [facility] Last Admin: 07/24/18 20:19 Dose: 0.5 mls Ceftriaxone Sodium 1 gm/ (Sodium Chloride) 100 mls @ 200 mls/hr IVPB Q24HR [facility] Last Admin: 07/24/18 12:51 Dose: 100 mls Levothyroxine Sodium (Synthroid) 75 mcg PO 0600 [facility] Last Admin: 07/25/18 05:38 Dose: 75 mcg Loperamide HCl (Imodium) 2 mg PO PRN PRN PRN Reason: Diarrhea/Loose Stools Loratadine (Claritin) 10 mg PO DAILYPRN PRN PRN Reason: Sinus Symptoms Magnesium Hydroxide (Milk Of Magnesium) 30 ml PO DAILYPRN PRN PRN Reason: Constipation Metoprolol Tartrate (Lopressor) 25 mg PO DAILY [facility] Last Admin: 07/25/18 09:36 Dose: 25 mg Mineral Oil/White Petrolatum (Eucerin Cream) 0 gm TOP BIDPRN PRN PRN Reason: Dry Skin Miscellaneous Medication (Pharmacy To Dose) 1 each IVPB PRN PRN PRN Reason: Pharmacy to dose Ondansetron HCl (Zofran Odt) 4 mg PO Q6H PRN PRN Reason: Nausea/Vomiting Ondansetron HCl (Zofran) 4 mg IVP Q6H PRN PRN Reason: Nausea/Vomiting Phenol (Chloraseptic [place] 180 Ml Bot) 0 ml PO PRN PRN PRN Reason: Sore Throat Prasugrel (Effient) 10 mg PO DAILY [facility] Last Admin: 07/25/18 09:36 Dose: 10 mg Senna (Senokot) 2 tab PO HSPRN PRN PRN Reason: Constipation Sertraline HCl (Zoloft) 100 mg PO [facility] Last Admin: 07/24/18 20:21 Dose: 100 mg Sodium Chloride ([place] Nasal [place] 0.65%) 0 ml EA NARE QIDPRN PRN PRN Reason: Nasal Congestion Temazepam (Restoril) 15 mg PO HSPRN PRN PRN Reason: Insomnia Throat Lozenges (Cepastat Lozenges) 1 christi PO Q2H PRN PRN Reason: Sore Throat Last Admin: 07/25/18 10:32 Dose: 1 christi
[2018-07-25] MEDS: cefTRIAXone\\ROCEPHIN 1 GM in Sodium Chloride 0.9% 100 ML IVPB SCH (12:14)
--- NOTE | 2018-07-25 12:19 | CT ---
CT ABDOMEN AND PELVIS WITH CONTRAST: HISTORY: Leukocytosis. Fever of unknown origin. COMPARISON: None. FINDINGS: Moderate layering bilateral pleural effusions. Mild pulmonary vascular congestion. No pericardial e ffusion. There is cholelithiasis without gallbladder distention. The pancreas is unremarkable, as well as the spleen. Small nodule, medial limb, left adrenal gland, not definitively an adenoma. There is a small, fat-containing infraumbilical ventral hernia. Small fat-containing umbilical herni a. No dilated loops of large or small bowel. No free intraperitoneal gas or fluid. The appendix is vis ualized and is normal. Renal enhancement is symmetric bilaterally. Moderate facet arthrosis, lower lumbar spine. IMPRESSION: 1. Moderate bilateral pleural effusions, as well as mild pulmonary vascular congestion. 2. Cholelithiasis without definite evidence of cholecystitis. 3. On the medial limb, left adrenal gland, there is a small nodule, not definitively an adenoma, lala suring approximately a centimeter. Nonemergent CT or MRI, adrenal protocol, may be beneficial if cli nically warranted. 4. Normal appendix. 5. No other acute inflammatory process of the abdomen or pelvis. 6. Small fat-containing umbilical hernia, as well as a fat-containing infraumbilical ventral hernia. No evidence of obstruction of vascular congestion. POS: [facility]
[2018-07-25] MEDS: Sodium Chloride 0.65% Nasal 44 ML BOT EA NARE PRN (12:25)
[2018-07-25] MEDS: Insulin Glargine 50 UNITS in Pre-Filled Syringe 1 EACH SC SCH (20:30)
[2018-07-25] MEDS: Atorvastatin Calcium 20 MG TAB PO SCH (20:33)
[2018-07-25] MEDS: Famotidine/PF 20 mg/2ml Vial SLOW IVP SCH (20:34)
[2018-07-26] MEDS: Levothyroxine Sodium 75 MCG TAB PO SCH (05:29)
[2018-07-26] MEDS ORDERED: Furosemide 40 MG/4 ML VIAL SLOW IVP SCH (07:45)
[2018-07-26 08:20] LABS: #Eosinphils 0.2 thou/uL (0.0-0.7); #Lymphocytes 1.3 thou/uL (1.20-3.40); #Monocytes 0.9 thou/uL (0.11-0.59); %Lymphocytes 8.6 % (21.0-51.0); %Monocytes 5.9 % (0.0-10.0); %Neutrophils 84.4 % (42.0-75.0); Hemoglobin 8.5 g/dL (12.0-16.0); Mean Corpuscular HGB CONC 31.5 g/dL (32.0-36.0); Mean Corpuscular Hemoglobin 26.9 pg (27.0-31.0); Mean Corpuscular Volume 85.3 fL (78.0-98.0); Platelet Count 470 thou/uL (130-400); RBC Distribution Width 15.2 % (11.5-14.5); Red Blood Cell (RBC) Count 3.16 mill/uL (4.20-5.40); White Blood Cell (WBC) Count 15.4 thou/uL (4.8-10.8)
[2018-07-26] MEDS: Prasugrel 10 MG TAB PO SCH (08:20)
[2018-07-26] MEDS: Levothyroxine 150 MCG TAB PO SCH (08:20)
[2018-07-26] MEDS: Heparin 5,000 UNITS/ML VIAL SC SCH ×3 (08:21→20:37)
[2018-07-26] MEDS: Metoprolol Tartrate 25 MG TAB PO SCH (08:21)
[2018-07-26] MEDS: Sodium Chloride 0.65% Nasal 44 ML BOT EA NARE PRN (08:23)
[2018-07-26 08:38] LABS: ALT (SGPT) 77 U/L (8-55); AST (SGOT) 115 U/L (5-34); Albumin 2.5 g/dL (3.4-4.8); Alkaline Phosphatase 224 U/L (40-150); Anion Gap 10 mmol/L (10-20); BUN (Urea Nitrogen) 25 mg/dL (9.8-20.1); Bilirubin, Total 0.5 mg/dL (0.2-1.2); Calc. Creatinine Clearance 92 mL/min (70-130); Carbon Dioxide 21 mmol/L (23-31); Chloride 108 mmol/L (98-107); Estimated GFR-MDRD 58; Globulin 4.2 g/dL (2.4-3.5); Glucose 113 mg/dL (80-115); Potassium 4.1 mmol/L (3.5-5.1); Protein, Total 6.7 g/dL (6.0-8.3); Sodium 135 mmol/L (136-145)
[2018-07-26] MEDS: Saccharomyces boulardii 250 MG CAP PO SCH (10:20)
--- NOTE | 2018-07-26 11:32 | PDOC.PN ---
- Subjective Encounter Start Date: 07/26/18 Encounter Start Time: 08:15 pt is feeling dyspnea, she has vague abdominal discomfort - Objective Resuscitation Status: Resuscitation Status FULL:Full Resuscitation MAR Reviewed: Yes Vital Signs & Weight: Vital Signs (12 hours) Temp Pulse Resp BP Pulse Ox 07/26/18 07:50 98.6 F 82 22 H 144/75 H 96 Weight Weight 219 lb I&O: 07/25/18 07/26/18 07/27/18 06:59 06:59 06:59 Intake Total 2719 1210 Balance 2719 1210 Result Diagrams: 07/26/18 07:58 07/26/18 07:58 Additional Labs: Accuchecks 07/26/18 07/26/18 07/25/18 05:32 04:21 19:39 POC Glucose 104 63 L 85 07/25/18 07/25/18 17:11 11:22 POC Glucose 99 122 H Radiology Reviewed by me: Yes (CT abdomen reviwed) Phys Exam - Physical Examination Constitutional: NAD HEENT: PERRLA, moist MMs, sclera anicteric Neck: no JVD, supple Respiratory: no wheezing, no rales, no rhonchi reduced air entry base Cardiovascular: RRR, no significant murmur, no rub Gastrointestinal: soft, no distention, positive bowel sounds RUQ discomfort noted Musculoskeletal: no edema, pulses present Neurological: non-focal, normal sensation, moves all 4 limbs Psychiatric: normal affect, A&O x 3 Skin: no rash, normal turgor Dx/Plan (1) Acute kidney failure Status: Resolved (2) Cellulitis of left hand Code(s): L03.114 - CELLULITIS OF LEFT UPPER LIMB Status: Acute (3) Dehydration Code(s): E86.0 - DEHYDRATION Status: Resolved (4) Hyponatremia Code(s): E87.1 - HYPO-OSMOLALITY AND HYPONATREMIA Status: Resolved (5) Leucocytosis Code(s): D72.829 - ELEVATED WHITE BLOOD CELL COUNT, UNSPECIFIED Status: Acute Comment: (6) UTI (urinary tract infection) Status: Acute (7) Weakness generalized Code(s): R53.1 - WEAKNESS Status: Acute (8) Anemia, normocytic normochromic Code(s): D64.9 - ANEMIA, UNSPECIFIED Status: Chronic (9) Anxiety and depression Code(s): F41.9 - ANXIETY DISORDER, UNSPECIFIED; F32.9 - MAJOR DEPRESSIVE DISORDER, SINGLE EPISODE, UNSPECIFIED Status: Chronic (10) CAD (coronary artery disease) Code(s): I25.10 - ATHSCL HEART DISEASE OF [place] CORONARY ARTERY W/O ANG PCTRS Status: Chronic (11) Diabetes type 2, controlled Code(s): E11.9 - TYPE 2 DIABETES MELLITUS WITHOUT COMPLICATIONS Status: Chronic (12) Dyslipidemia Code(s): E78.5 - HYPERLIPIDEMIA, UNSPECIFIED Status: Chronic (13) Hypertension Code(s): I10 - ESSENTIAL (PRIMARY) HYPERTENSION Status: Chronic (14) Hypothyroidism Code(s): E03.9 - HYPOTHYROIDISM, UNSPECIFIED Status: Chronic (15) Obesity (BMI 30.0-34.9) Code(s): E66.9 - OBESITY, UNSPECIFIED Status: Chronic (16) Abnormal LFTs Code(s): R94.5 - ABNORMAL RESULTS OF LIVER FUNCTION STUDIES Status: Acute (17) Hypoglycemia associated with type 2 diabetes mellitus Code(s): E11.649 - TYPE 2 DIABETES MELLITUS WITH HYPOGLYCEMIA WITHOUT COMA Status: Acute - Plan cont current plan of care, continue antibiotics, PT/OT * will give her lasix 40 mg IV BID for pulmonary congestion * despite IV antibiotics, her wbc is still high, she has cholelithiassis and RUQ discomfort, now has abnormal LFT, will do hida scan to rule out acute cholecystitis * will repeat labs tomorrow * medication reviewed as below * symptomatic treatment * continue PT * will need rehab on discharge. Review of Systems - Review of Systems Constitutional: weakness. negative: fever, chills, sweats, malaise, other Eyes: negative: Pain, Vision Change, Conjunctivae Inflammation, Eyelid Inflammation, Redness, Other ENT: negative: Ear Pain, Ear Discharge, Nose Pain, Nose Discharge, Nose Congestion, Mouth Pain, Mouth Swelling, Throat Pain, Throat Swelling, Other Respiratory: SOB with Excertion. negative: Cough, Dry, Shortness of Breath, Hemoptysis, Pleuritic Pain, Sputum, Wheezing Cardiovascular: negative: chest pain, palpitations, orthopnea, paroxysmal nocturnal dyspnea, edema, light headedness, other Gastrointestinal: Abdominal Pain. negative: Nausea, Vomiting, Diarrhea, Constipation, Melena, Hematochezia, Other Genitourinary: negative: Dysuria, Frequency, Incontinence, Hematuria, Retention , Other Musculoskeletal: negative: Neck Pain, Shoulder Pain, Arm Pain, Back Pain, Hand Pain, Leg Pain, Foot Pain, Other - Medications/Allergies Allergies/Adverse Reactions: Allergies Allergy/AdvReac Type Severity Reaction Status Date / Time adhesive tape Allergy Verified 07/22/18 22:00 latex Allergy Verified 07/22/18 22:00 lidocaine Allergy Verified 07/22/18 22:00 Medications: Current Medications Acetaminophen (Tylenol) 650 mg PO Q4H PRN PRN Reason: Headache/Fever or Pain Last Admin: 07/24/18 20:22 Dose: 650 mg Hydrocodone Bitart/Acetaminophen ([place] 5/325) 1 tab PO Q4H PRN PRN Reason: Moderate Pain (4-6) Last Admin: 07/23/18 20:08 Dose: 1 tab Hydrocodone Bitart/Acetaminophen ([place] 5/325) 2 tab PO Q4H PRN PRN Reason: Severe Pain (7-10) Last Admin: 07/23/18 08:57 Dose: 2 tab Al Hydroxide/Mg Hydroxide (Maalox) 30 ml PO Q6H PRN PRN Reason: Heartburn or Indigestion Albuterol/Ipratropium (Duoneb) 3 ml NEB [id number] PRN PRN Reason: SOB &/or Wheezing Artificial Tears (Tears Naturale) 0 drop EA EYE PRN PRN PRN Reason: Dry Eyes Atorvastatin Calcium (Lipitor) 80 mg PO HS [facility] Bisacodyl (Dulcolax) 10 mg PO DAILYPRN PRN PRN Reason: Constipation Calcium Carbonate (Tums) 1,000 mg PO Q4H PRN PRN Reason: Heartburn or Indigestion Famotidine (Pepcid) 20 mg SLOW IVP 2100 [facility] Last Admin: 07/25/18 20:34 Dose: 20 mg Furosemide (Lasix) 40 mg SLOW IVP 0600,1400 [facility] Guaifenesin (Robitussin Sf) 200 mg PO Q4H PRN PRN Reason: Cough Heparin Sodium (Porcine) (Heparin) 5,000 units SC BID [facility] Last Admin: 07/26/18 10:21 Dose: Not Given Hydralazine HCl (Apresoline) 10 mg SLOW IVP Q4H PRN PRN Reason: Systolic BP > 180 Insulin Glargine 50 units/ (Miscellaneous Medication) 0.5 mls @ 0 mls/hr SC [facility] Last Admin: 07/25/18 20:30 Dose: Not Given Ceftriaxone Sodium 1 gm/ (Sodium Chloride) 100 mls @ 200 mls/hr IVPB Q24HR [facility] Last Admin: 07/25/18 12:14 Dose: 100 mls Levofloxacin 750 mg/ Device 150 mls @ 100 mls/hr IVPB DAILY [facility] Last Admin: 07/26/18 10:20 Dose: 150 mls Levothyroxine Sodium (Synthroid) 150 mcg PO DAILY [facility] Last Admin: 07/26/18 08:20 Dose: 150 mcg Loperamide HCl (Imodium) 2 mg PO PRN PRN PRN Reason: Diarrhea/Loose Stools Loratadine (Claritin) 10 mg PO DAILYPRN PRN PRN Reason: Sinus Symptoms Magnesium Hydroxide (Milk Of Magnesium) 30 ml PO DAILYPRN PRN PRN Reason: Constipation Metoprolol Tartrate (Lopressor) 25 mg PO DAILY [facility] Last Admin: 07/26/18 08:21 Dose: 25 mg Mineral Oil/White Petrolatum (Eucerin Cream) 0 gm TOP BIDPRN PRN PRN Reason: Dry Skin Miscellaneous Medication (Pharmacy To Dose) 1 each IVPB PRN PRN PRN Reason: Pharmacy to dose Ondansetron HCl (Zofran Odt) 4 mg PO Q6H PRN PRN Reason: Nausea/Vomiting Ondansetron HCl (Zofran) 4 mg IVP Q6H PRN PRN Reason: Nausea/Vomiting Last Admin: 07/25/18 18:44 Dose: 4 mg Phenol (Chloraseptic [place] 180 Ml Bot) 0 ml PO PRN PRN PRN Reason: Sore Throat Prasugrel (Effient) 10 mg PO DAILY [facility] Last Admin: 07/26/18 08:20 Dose: 10 mg Saccharomyces Boulardii (Florastor) 250 mg PO DAILY [facility] Last Admin: 07/26/18 10:20 Dose: 250 mg Senna (Senokot) 2 tab PO HSPRN PRN PRN Reason: Constipation Sertraline HCl (Zoloft) 100 mg PO [facility] Last Admin: 07/25/18 20:33 Dose: 100 mg Sodium Chloride ([place] Nasal [place] 0.65%) 0 ml EA NARE QIDPRN PRN PRN Reason: Nasal Congestion Last Admin: 07/26/18 08:23 Dose: 1 spr Temazepam (Restoril) 15 mg PO HSPRN PRN PRN Reason: Insomnia Throat Lozenges (Cepastat Lozenges) 1 christi PO Q2H PRN PRN Reason: Sore Throat Last Admin: 07/25/18 10:32 Dose: 1 christi
[2018-07-26] MEDS: cefTRIAXone\\ROCEPHIN 1 GM in Sodium Chloride 0.9% 100 ML IVPB SCH (12:00)
[2018-07-26] MEDS: Furosemide 40 MG/4 ML VIAL SLOW IVP SCH (15:35)
--- NOTE | 2018-07-26 16:04 | NM ---
HEPATOBILIARY SCAN: Date: 07/26/18 HISTORY: Right upper quadrant pain. Abnormal LFTs. FINDINGS: Examination was performed using 5.2 mCi 99m technetium mebrofenin. This shows gallbladder opacificati on by approximately 8 minutes. Bowel activity is seen at approximately 30 minutes. An 8 oz. dose of E nsure was given. The ejection fraction was 72%. Normal for Ensure is greater than 33%. IMPRESSION: Unremarkable hepatobiliary scan. POS: [facility]
[2018-07-26] MEDS: Atorvastatin Calcium 40 MG TAB PO SCH (20:37)
[2018-07-26] MEDS: Insulin Glargine 50 UNITS in Pre-Filled Syringe 1 EACH SC SCH (20:37)
[2018-07-26] MEDS: Famotidine/PF 20 mg/2ml Vial SLOW IVP SCH (20:37)
[2018-07-26] MEDS: Acetaminophen 325 MG TAB PO PRN (20:38)
[2018-07-27 04:54] LABS: #Eosinphils 0.4 thou/uL (0.0-0.7); #Lymphocytes 1.9 thou/uL (1.20-3.40); #Monocytes 1.2 thou/uL (0.11-0.59); #Neutrophils 11.7 thou/uL (1.40-6.50); %Basophils 0.1 % (0.0-1.0); %Eosinophils 2.5 % (0.0-10.0); %Lymphocytes 12.5 % (21.0-51.0); %Monocytes 7.8 % (0.0-10.0); %Neutrophils 77.1 % (42.0-75.0); Hemoglobin 8.3 g/dL (12.0-16.0); Mean Corpuscular HGB CONC 31.5 g/dL (32.0-36.0); Mean Corpuscular Volume 85.7 fL (78.0-98.0); Platelet Count 509 thou/uL (130-400); Red Blood Cell (RBC) Count 3.08 mill/uL (4.20-5.40); White Blood Cell (WBC) Count 15.2 thou/uL (4.8-10.8)
[2018-07-27 05:00] LABS: INR-International Normal Ratio 1.2; PTT 48.5 SEC (22.9-36.1); Prothrombin Time 15.6 SEC (12.0-14.7)
[2018-07-27 05:02] LABS: ALT (SGPT) 74 U/L (8-55); AST (SGOT) 103 U/L (5-34); Albumin 2.4 g/dL (3.4-4.8); Alkaline Phosphatase 193 U/L (40-150); Anion Gap 13 mmol/L (10-20); BUN (Urea Nitrogen) 30 mg/dL (9.8-20.1); Bilirubin, Total 0.4 mg/dL (0.2-1.2); Calc. Creatinine Clearance 88 mL/min (70-130); Calcium 9.1 mg/dL (7.8-10.44); Carbon Dioxide 23 mmol/L (23-31); Chloride 107 mmol/L (98-107); Estimated GFR-MDRD 56; Globulin 4.1 g/dL (2.4-3.5); Glucose 90 mg/dL (80-115); Potassium 3.6 mmol/L (3.5-5.1); Protein, Total 6.5 g/dL (6.0-8.3); Sodium 139 mmol/L (136-145)
[2018-07-27] MEDS: Furosemide 40 MG/4 ML VIAL SLOW IVP SCH ×2 (05:18→15:50)
[2018-07-27 05:26] LABS: HBSAg Index 0.22 S/CO (0-0.99); Hep A IgM AB Non-Reactive (NonReactive); Hep A IgM S/CO 0.06 S/CO (0-0.79); Hep B Surf Ag Non-Reactive S/CO (NonReactive); Hep C IgG Ab Non-Reactive (NonReactive); Hep C Index 0.19 S/CO (0-0.79)
[2018-07-27 05:28] LABS: HBCM Index 0.06 S/CO (0-0.79); Hepatitis B Core IGM Abs Non-Reactive (NonReactive)
[2018-07-27 06:42] LABS: CRP (Inflammatory) 19.4 mg/dL (= or < 0.5)
[2018-07-27] MEDS ORDERED: Colchicine 0.6 MG TAB PO SCH (09:00)
[2018-07-27] MEDS: Metoprolol Tartrate 25 MG TAB PO SCH (10:03)
[2018-07-27] MEDS: Saccharomyces boulardii 250 MG CAP PO SCH (10:03)
[2018-07-27] MEDS: Prasugrel 10 MG TAB PO SCH (10:03)
[2018-07-27] MEDS: Levothyroxine 150 MCG TAB PO SCH (10:03)
[2018-07-27] MEDS: Heparin 5,000 UNITS/ML VIAL SC SCH ×2 (10:04→20:36)
--- NOTE | 2018-07-27 11:23 | PDOC.PN ---
- Subjective Encounter Start Date: 07/27/18 Encounter Start Time: 08:40 pt has shoulder and hip girdle pain, weak due to muscle pain, no visual symptoms - Objective Resuscitation Status: Resuscitation Status FULL:Full Resuscitation MAR Reviewed: Yes Vital Signs & Weight: Vital Signs (12 hours) Temp Pulse Resp BP Pulse Ox 07/27/18 07:01 98.3 F 76 20 149/74 H 94 L Weight Weight 219 lb I&O: 07/26/18 07/27/18 07/28/18 06:59 06:59 06:59 Intake Total 1210 775 Balance 1210 775 Result Diagrams: 07/27/18 04:37 07/27/18 04:37 Additional Labs: Accuchecks 07/27/18 07/26/18 07/26/18 04:08 19:49 15:56 POC Glucose 85 221 H 182 H 07/26/18 11:32 POC Glucose 164 H Radiology Reviewed by me: Yes (hida scan normal) Phys Exam - Physical Examination Constitutional: NAD HEENT: PERRLA, moist MMs, sclera anicteric Neck: no JVD, supple Respiratory: no wheezing, no rales, no rhonchi Cardiovascular: RRR, no significant murmur, no rub Gastrointestinal: soft, non-tender, no distention, positive bowel sounds Musculoskeletal: no edema, pulses present Neurological: non-focal, normal sensation, moves all 4 limbs Psychiatric: normal affect, A&O x 3 Skin: no rash, normal turgor Dx/Plan (1) Acute kidney failure Status: Resolved (2) Cellulitis of left hand Code(s): L03.114 - CELLULITIS OF LEFT UPPER LIMB Status: Acute (3) Dehydration Code(s): E86.0 - DEHYDRATION Status: Resolved (4) Hyponatremia Code(s): E87.1 - HYPO-OSMOLALITY AND HYPONATREMIA Status: Resolved (5) Leucocytosis Code(s): D72.829 - ELEVATED WHITE BLOOD CELL COUNT, UNSPECIFIED Status: Acute Comment: (6) UTI (urinary tract infection) Status: Acute (7) Weakness generalized Code(s): R53.1 - WEAKNESS Status: Acute (8) Anemia, normocytic normochromic Code(s): D64.9 - ANEMIA, UNSPECIFIED Status: Chronic (9) Anxiety and depression Code(s): F41.9 - ANXIETY DISORDER, UNSPECIFIED; F32.9 - MAJOR DEPRESSIVE DISORDER, SINGLE EPISODE, UNSPECIFIED Status: Chronic (10) CAD (coronary artery disease) Code(s): I25.10 - ATHSCL HEART DISEASE OF [place] CORONARY ARTERY W/O ANG PCTRS Status: Chronic (11) Diabetes type 2, controlled Code(s): E11.9 - TYPE 2 DIABETES MELLITUS WITHOUT COMPLICATIONS Status: Chronic (12) Dyslipidemia Code(s): E78.5 - HYPERLIPIDEMIA, UNSPECIFIED Status: Chronic (13) Hypertension Code(s): I10 - ESSENTIAL (PRIMARY) HYPERTENSION Status: Chronic (14) Hypothyroidism Code(s): E03.9 - HYPOTHYROIDISM, UNSPECIFIED Status: Chronic (15) Obesity (BMI 30.0-34.9) Code(s): E66.9 - OBESITY, UNSPECIFIED Status: Chronic (16) Abnormal LFTs Code(s): R94.5 - ABNORMAL RESULTS OF LIVER FUNCTION STUDIES Status: Acute (17) Hypoglycemia associated with type 2 diabetes mellitus Code(s): E11.649 - TYPE 2 DIABETES MELLITUS WITH HYPOGLYCEMIA WITHOUT COMA Status: Acute - Plan cont current plan of care, 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 polyarticular gout but pt does not have any joint tenderness so less likely * will start solumedrol * medication reviewed as below * symptomatic treatment * continue PT * as all culture negative will change to oral antibiotics for 3 more days * will monitor today * will get echo for high BNP * with lasix pt has improvement. Review of Systems - Review of Systems Constitutional: weakness. negative: fever, chills, sweats, malaise, other ENT: negative: Ear Pain, Ear Discharge, Nose Pain, Nose Discharge, Nose Congestion, Mouth Pain, Mouth Swelling, Throat Pain, Throat Swelling, Other Respiratory: negative: Cough, Dry, Shortness of Breath, Hemoptysis, SOB with Excertion, Pleuritic Pain, Sputum, Wheezing Cardiovascular: negative: chest pain, palpitations, orthopnea, paroxysmal nocturnal dyspnea, edema, light headedness, other Gastrointestinal: negative: Nausea, Vomiting, Abdominal Pain, Diarrhea, Constipation, Melena, Hematochezia, Other Genitourinary: negative: Dysuria, Frequency, Incontinence, Hematuria, Retention , Other Musculoskeletal: negative: Neck Pain, Shoulder Pain, Arm Pain, Back Pain, Hand Pain, Leg Pain, Foot Pain, Other Skin: negative: Rash, Lesions, Henrry, Bruising, Other - Medications/Allergies Allergies/Adverse Reactions: Allergies Allergy/AdvReac Type Severity Reaction Status Date / Time adhesive tape Allergy Verified 07/22/18 22:00 latex Allergy Verified 07/22/18 22:00 lidocaine Allergy Verified 07/22/18 22:00 Medications: Current Medications Acetaminophen (Tylenol) 650 mg PO Q4H PRN PRN Reason: Headache/Fever or Pain Last Admin: 07/26/18 20:38 Dose: 650 mg Hydrocodone Bitart/Acetaminophen ([place] 5/325) 1 tab PO Q4H PRN PRN Reason: Moderate Pain (4-6) Last Admin: 07/23/18 20:08 Dose: 1 tab Hydrocodone Bitart/Acetaminophen ([place] 5/325) 2 tab PO Q4H PRN PRN Reason: Severe Pain (7-10) Last Admin: 07/23/18 08:57 Dose: 2 tab Al Hydroxide/Mg Hydroxide (Maalox) 30 ml PO Q6H PRN PRN Reason: Heartburn or Indigestion Albuterol/Ipratropium (Duoneb) 3 ml NEB [id number] PRN PRN Reason: SOB &/or Wheezing Artificial Tears (Tears Naturale) 0 drop EA EYE PRN PRN PRN Reason: Dry Eyes Atorvastatin Calcium (Lipitor) 80 mg PO HS [facility] Last Admin: 07/26/18 20:37 Dose: 80 mg Bisacodyl (Dulcolax) 10 mg PO DAILYPRN PRN PRN Reason: Constipation Calcium Carbonate (Tums) 1,000 mg PO Q4H PRN PRN Reason: Heartburn or Indigestion Colchicine (Colcrys) 0.6 mg PO BID [facility] Last Admin: 07/27/18 10:03 Dose: 0.6 mg Famotidine (Pepcid) 20 mg SLOW IVP 2100 [facility] Last Admin: 07/26/18 20:37 Dose: 20 mg Furosemide (Lasix) 40 mg SLOW IVP 0600,1400 [facility] Last Admin: 07/27/18 05:18 Dose: 40 mg Guaifenesin (Robitussin Sf) 200 mg PO Q4H PRN PRN Reason: Cough Heparin Sodium (Porcine) (Heparin) 5,000 units SC BID [facility] Last Admin: 07/27/18 10:04 Dose: 5,000 units Hydralazine HCl (Apresoline) 10 mg SLOW IVP Q4H PRN PRN Reason: Systolic BP > 180 Insulin Glargine 50 units/ (Miscellaneous Medication) 0.5 mls @ 0 mls/hr SC HS [facility] Last Admin: 07/26/18 20:37 Dose: 0.5 mls Ceftriaxone Sodium 1 gm/ (Sodium Chloride) 100 mls @ 200 mls/hr IVPB Q24HR [facility] Last Admin: 07/26/18 12:00 Dose: 100 mls Levofloxacin 750 mg/ Device 150 mls @ 100 mls/hr IVPB DAILY [facility] Last Admin: 07/27/18 10:04 Dose: 150 mls Levothyroxine Sodium (Synthroid) 150 mcg PO DAILY [facility] Last Admin: 07/27/18 10:03 Dose: 150 mcg Loperamide HCl (Imodium) 2 mg PO PRN PRN PRN Reason: Diarrhea/Loose Stools Loratadine (Claritin) 10 mg PO DAILYPRN PRN PRN Reason: Sinus Symptoms Magnesium Hydroxide (Milk Of Magnesium) 30 ml PO DAILYPRN PRN PRN Reason: Constipation Methylprednisolone Sodium Succinate (Solu-Medrol) 40 mg IVP Q6HR [facility] Stop: 07/28/18 06:01 Metoprolol Tartrate (Lopressor) 25 mg PO DAILY [facility] Last Admin: 07/27/18 10:03 Dose: 25 mg Mineral Oil/White Petrolatum (Eucerin Cream) 0 gm TOP BIDPRN PRN PRN Reason: Dry Skin Miscellaneous Medication (Pharmacy To Dose) 1 each IVPB PRN PRN PRN Reason: Pharmacy to dose Ondansetron HCl (Zofran Odt) 4 mg PO Q6H PRN PRN Reason: Nausea/Vomiting Ondansetron HCl (Zofran) 4 mg IVP Q6H PRN PRN Reason: Nausea/Vomiting Last Admin: 07/25/18 18:44 Dose: 4 mg Phenol (Chloraseptic [place] 180 Ml Bot) 0 ml PO PRN PRN PRN Reason: Sore Throat Prasugrel (Effient) 10 mg PO DAILY [facility] Last Admin: 07/27/18 10:03 Dose: 10 mg Saccharomyces Boulardii (Florastor) 250 mg PO DAILY [facility] Last Admin: 07/27/18 10:03 Dose: 250 mg Senna (Senokot) 2 tab PO HSPRN PRN PRN Reason: Constipation Sertraline HCl (Zoloft) 100 mg PO HS [facility] Last Admin: 07/26/18 20:38 Dose: 100 mg Sodium Chloride ([place] Nasal [place] 0.65%) 0 ml EA NARE QIDPRN PRN PRN Reason: Nasal Congestion Last Admin: 07/26/18 08:23 Dose: 1 spr Temazepam (Restoril) 15 mg PO HSPRN PRN PRN Reason: Insomnia Last Admin: 07/26/18 22:00 Dose: 15 mg Throat Lozenges (Cepastat Lozenges) 1 christi PO Q2H PRN PRN Reason: Sore Throat Last Admin: 07/25/18 10:32 Dose: 1 christi
[2018-07-27 14:48] LABS: ANA Symphony (Qualitative) Negative (Negative); dsDNA IgG Antibody Less than 0.5 IU/mL (<10 Negative)
[2018-07-27] MEDS: Insulin Glargine 50 UNITS in Pre-Filled Syringe 1 EACH SC SCH (20:35)
[2018-07-27] MEDS: Cefdinir 300 MG CAP PO SCH (20:36)
[2018-07-27] MEDS: Atorvastatin Calcium 40 MG TAB PO SCH (20:36)
[2018-07-27] MEDS: Famotidine/PF 20 mg/2ml Vial SLOW IVP SCH (20:36)
[2018-07-28] MEDS ORDERED: Dextrose 5% in Water 1,000 ML IV PRN (05:43)
[2018-07-28] MEDS ORDERED: Dextrose 50% Abboject 50 ML SYRINGE IVP PRN (05:43)
[2018-07-28] MEDS: Furosemide 40 MG/4 ML VIAL SLOW IVP SCH (06:02)
[2018-07-28] MEDS: Insulin Regular 300 UNITS/3 ML VIAL SC PRN ×4 (06:02→20:27)
[2018-07-28] MEDS: Prasugrel 10 MG TAB PO SCH (09:11)
[2018-07-28] MEDS: Saccharomyces boulardii 250 MG CAP PO SCH (09:11)
[2018-07-28] MEDS: Cefdinir 300 MG CAP PO SCH ×2 (09:12→20:26)
[2018-07-28] MEDS: Heparin 5,000 UNITS/ML VIAL SC SCH ×2 (09:12→20:26)
[2018-07-28] MEDS: Levothyroxine 150 MCG TAB PO SCH (09:12)
[2018-07-28] MEDS: Metoprolol Tartrate 25 MG TAB PO SCH (09:12)
[2018-07-28 10:03] LABS: Hemoglobin 8.7 g/dL (12.0-16.0); Mean Corpuscular HGB CONC 30.7 g/dL (32.0-36.0); Mean Corpuscular Hemoglobin 26.2 pg (27.0-31.0); Mean Corpuscular Volume 85.3 fL (78.0-98.0); Mean Platelet Volume 6.4 fL (7.4-10.4); Platelet Count 537 thou/uL (130-400); RBC Distribution Width 15.1 % (11.5-14.5); Red Blood Cell (RBC) Count 3.34 mill/uL (4.20-5.40); White Blood Cell (WBC) Count 16.5 thou/uL (4.8-10.8)
--- NOTE | 2018-07-28 10:08 | PDOC.PN ---
- Subjective Encounter Start Date: 07/28/18 Encounter Start Time: 08:40 Patient seen and examined. No new complaints. No overnight events pt clinically feels better - Objective Resuscitation Status: Resuscitation Status FULL:Full Resuscitation MAR Reviewed: Yes Vital Signs & Weight: Vital Signs (12 hours) Temp Pulse Resp BP BP Pulse Ox 07/28/18 07:15 96 07/28/18 07:09 98.5 F 62 18 156/74 H 96 07/28/18 04:00 98.1 F 68 20 156/76 H 94 L 07/28/18 00:49 98.6 F 71 20 150/75 H 94 L Weight Weight 219 lb I&O: 07/27/18 07/28/18 07/29/18 06:59 06:59 06:59 Intake Total 775 1750 Balance 775 1750 Result Diagrams: 07/28/18 09:32 07/27/18 04:37 Additional Labs: Accuchecks 07/28/18 07/27/18 07/27/18 04:56 20:20 16:01 POC Glucose 352 H 389 H 211 H 07/27/18 11:10 POC Glucose 172 H Radiology Reviewed by me: Yes (echo report reviewed) Phys Exam - Physical Examination Constitutional: NAD HEENT: PERRLA, moist MMs, sclera anicteric Neck: no JVD, supple Respiratory: no wheezing, no rales, no rhonchi Cardiovascular: RRR, no significant murmur, no rub Gastrointestinal: soft, non-tender, no distention, positive bowel sounds Musculoskeletal: no edema, pulses present Neurological: non-focal, normal sensation, moves all 4 limbs Psychiatric: normal affect, A&O x 3 Skin: no rash, normal turgor Dx/Plan (1) Acute kidney failure Status: Resolved (2) Cellulitis of left hand Code(s): L03.114 - CELLULITIS OF LEFT UPPER LIMB Status: Acute (3) Dehydration Code(s): E86.0 - DEHYDRATION Status: Resolved (4) Hyponatremia Code(s): E87.1 - HYPO-OSMOLALITY AND HYPONATREMIA Status: Resolved (5) Leucocytosis Code(s): D72.829 - ELEVATED WHITE BLOOD CELL COUNT, UNSPECIFIED Status: Acute Comment: (6) UTI (urinary tract infection) Status: Acute (7) Weakness generalized Code(s): R53.1 - WEAKNESS Status: Acute (8) Anemia, normocytic normochromic Code(s): D64.9 - ANEMIA, UNSPECIFIED Status: Chronic (9) Anxiety and depression Code(s): F41.9 - ANXIETY DISORDER, UNSPECIFIED; F32.9 - MAJOR DEPRESSIVE DISORDER, SINGLE EPISODE, UNSPECIFIED Status: Chronic (10) CAD (coronary artery disease) Code(s): I25.10 - ATHSCL HEART DISEASE OF [place] CORONARY ARTERY W/O ANG PCTRS Status: Chronic (11) Diabetes type 2, controlled Code(s): E11.9 - TYPE 2 DIABETES MELLITUS WITHOUT COMPLICATIONS Status: Chronic (12) Dyslipidemia Code(s): E78.5 - HYPERLIPIDEMIA, UNSPECIFIED Status: Chronic (13) Hypertension Code(s): I10 - ESSENTIAL (PRIMARY) HYPERTENSION Status: Chronic (14) Hypothyroidism Code(s): E03.9 - HYPOTHYROIDISM, UNSPECIFIED Status: Chronic (15) Obesity (BMI 30.0-34.9) Code(s): E66.9 - OBESITY, UNSPECIFIED Status: Chronic (16) Abnormal LFTs Code(s): R94.5 - ABNORMAL RESULTS OF LIVER FUNCTION STUDIES Status: Acute (17) Hypoglycemia associated with type 2 diabetes mellitus Code(s): E11.649 - TYPE 2 DIABETES MELLITUS WITH HYPOGLYCEMIA WITHOUT COMA Status: Acute (18) Acute diastolic ACC/AHA stage C congestive heart failure Code(s): I50.31 - ACUTE DIASTOLIC (CONGESTIVE) HEART FAILURE Status: Acute - Plan cont current plan of care, continue antibiotics, 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 Review of Systems - Review of Systems ENT: negative: Ear Pain, Ear Discharge, Nose Pain, Nose Discharge, Nose Congestion, Mouth Pain, Mouth Swelling, Throat Pain, Throat Swelling, Other Respiratory: negative: Cough, Dry, Shortness of Breath, Hemoptysis, SOB with Excertion, Pleuritic Pain, Sputum, Wheezing Cardiovascular: negative: chest pain, palpitations, orthopnea, paroxysmal nocturnal dyspnea, edema, light headedness, other Gastrointestinal: negative: Nausea, Vomiting, Abdominal Pain, Diarrhea, Constipation, Melena, Hematochezia, Other Genitourinary: negative: Dysuria, Frequency, Incontinence, Hematuria, Retention , Other Musculoskeletal: negative: Neck Pain, Shoulder Pain, Arm Pain, Back Pain, Hand Pain, Leg Pain, Foot Pain, Other - Medications/Allergies Allergies/Adverse Reactions: Allergies Allergy/AdvReac Type Severity Reaction Status Date / Time adhesive tape Allergy Verified 07/22/18 22:00 latex Allergy Verified 07/22/18 22:00 lidocaine Allergy Verified 07/22/18 22:00 Medications: Current Medications Acetaminophen (Tylenol) 650 mg PO Q4H PRN PRN Reason: Headache/Fever or Pain Last Admin: 07/26/18 20:38 Dose: 650 mg Hydrocodone Bitart/Acetaminophen ([place] 5/325) 1 tab PO Q4H PRN PRN Reason: Moderate Pain (4-6) Last Admin: 07/23/18 20:08 Dose: 1 tab Hydrocodone Bitart/Acetaminophen ([place] 5/325) 2 tab PO Q4H PRN PRN Reason: Severe Pain (7-10) Last Admin: 07/23/18 08:57 Dose: 2 tab Al Hydroxide/Mg Hydroxide (Maalox) 30 ml PO Q6H PRN PRN Reason: Heartburn or Indigestion Albuterol/Ipratropium (Duoneb) 3 ml NEB [id number] PRN PRN Reason: SOB &/or Wheezing Artificial Tears (Tears Naturale) 0 drop EA EYE PRN PRN PRN Reason: Dry Eyes Atorvastatin Calcium (Lipitor) 80 mg PO [facility] Last Admin: 07/27/18 20:36 Dose: 80 mg Bisacodyl (Dulcolax) 10 mg PO DAILYPRN PRN PRN Reason: Constipation Calcium Carbonate (Tums) 1,000 mg PO Q4H PRN PRN Reason: Heartburn or Indigestion Cefdinir (Omnicef) 300 mg PO BID [facility] Last Admin: 07/28/18 09:12 Dose: 300 mg Dextrose/Water (Dextrose 50%) 25 gm IVP PRN PRN PRN Reason: HYPOGLYCEMIA PROTOCOL Furosemide (Lasix) 40 mg PO DAILY-[facility] Glucagon (Glucagon) 1 mg IM PRN PRN PRN Reason: HYPOGLYCEMIA PROTOCOL Guaifenesin (Robitussin Sf) 200 mg PO Q4H PRN PRN Reason: Cough Heparin Sodium (Porcine) (Heparin) 5,000 units SC BID [facility] Last Admin: 07/28/18 09:12 Dose: 5,000 units Hydralazine HCl (Apresoline) 10 mg SLOW IVP Q4H PRN PRN Reason: Systolic BP > 180 Insulin Glargine 50 units/ (Miscellaneous Medication) 0.5 mls @ 0 mls/hr SC [facility] Last Admin: 07/27/18 20:35 Dose: 0.5 mls Dextrose/Water (D5w) 1,000 mls @ 0 mls/hr IV INF PRN PRN Reason: HYPOGLYCEMIA PROTOCOL Insulin Human Regular (Humulin R) 0 units SC .MILD SLIDING PRN; Protocol PRN Reason: MILD SLIDING SCALE Last Admin: 07/28/18 06:02 Dose: 6 unit Insulin Human Regular (Humulin R) 0 units SC .BEDTIME SLIDING SC PRN; Protocol PRN Reason: BEDTIME SLIDING SCALE Levothyroxine Sodium (Synthroid) 150 mcg PO DAILY [facility] Last Admin: 07/28/18 09:12 Dose: 150 mcg Loperamide HCl (Imodium) 2 mg PO PRN PRN PRN Reason: Diarrhea/Loose Stools Loratadine (Claritin) 10 mg PO DAILYPRN PRN PRN Reason: Sinus Symptoms Magnesium Hydroxide (Milk Of Magnesium) 30 ml PO DAILYPRN PRN PRN Reason: Constipation Metoprolol Tartrate (Lopressor) 25 mg PO DAILY [facility] Last Admin: 07/28/18 09:12 Dose: 25 mg Mineral Oil/White Petrolatum (Eucerin Cream) 0 gm TOP BIDPRN PRN PRN Reason: Dry Skin Ondansetron HCl (Zofran Odt) 4 mg PO Q6H PRN PRN Reason: Nausea/Vomiting Ondansetron HCl (Zofran) 4 mg IVP Q6H PRN PRN Reason: Nausea/Vomiting Last Admin: 07/25/18 18:44 Dose: 4 mg Pantoprazole Sodium (Protonix) 40 mg PO DAILY [facility] Phenol (Chloraseptic [place] 180 Ml Bot) 0 ml PO PRN PRN PRN Reason: Sore Throat Prasugrel (Effient) 10 mg PO DAILY [facility] Last Admin: 07/28/18 09:11 Dose: 10 mg Prednisone (Prednisone) 20 mg PO [facility] Saccharomyces Boulardii (Florastor) 250 mg PO DAILY [facility] Last Admin: 07/28/18 09:11 Dose: 250 mg Senna (Senokot) 2 tab PO HSPRN PRN PRN Reason: Constipation Sertraline HCl (Zoloft) 100 mg PO HS [facility] Last Admin: 07/27/18 20:36 Dose: 100 mg Sodium Chloride ([place] Nasal [place] 0.65%) 0 ml EA NARE QIDPRN PRN PRN Reason: Nasal Congestion Last Admin: 07/26/18 08:23 Dose: 1 spr Temazepam (Restoril) 15 mg PO HSPRN PRN PRN Reason: Insomnia Last Admin: 07/26/18 22:00 Dose: 15 mg Throat Lozenges (Cepastat Lozenges) 1 christi PO Q2H PRN PRN Reason: Sore Throat Last Admin: 07/25/18 10:32 Dose: 1 christi
[2018-07-28 10:10] LABS: ALT (SGPT) 69 U/L (8-55); AST (SGOT) 73 U/L (5-34); Albumin 2.6 g/dL (3.4-4.8); Alkaline Phosphatase 184 U/L (40-150); Anion Gap 15 mmol/L (10-20); BUN (Urea Nitrogen) 41 mg/dL (9.8-20.1); Bilirubin, Total 0.3 mg/dL (0.2-1.2); CRP (Inflammatory) 15.92 mg/dL (= or < 0.5); Calc. Creatinine Clearance 67 mL/min (70-130); Calcium 9.1 mg/dL (7.8-10.44); Carbon Dioxide 25 mmol/L (23-31); Chloride 101 mmol/L (98-107); Estimated GFR-MDRD 40; Globulin 4.4 g/dL (2.4-3.5); Glucose 275 mg/dL (80-115); Potassium 3.9 mmol/L (3.5-5.1); Sodium 137 mmol/L (136-145)
[2018-07-28 10:40] LABS: Band 2 % (5-11); Hypochromia MODERATE=16-30 cells (100X) (0-5/hpf); Lymphocytes 8 % (21-51); MDiff Complete? YES; Microcytosis SLIGHT = 6-15 cells (100X) (0-5/hpf); Monocytes 6 % (0-10); Neutrophil 84 % (42-75); PLT Morphology Comment Appears Increased; Polychromasia SLIGHT = 2-3 cells (100X) (0-2/hpf)
--- NOTE | 2018-07-28 13:38 | EKG ---
Test Reason : Blood Pressure : / mmHG Vent. Rate : 095 BPM Atrial Rate : 095 BPM P-R Int : 144 ms QRS Dur : 078 ms QT Int : 356 ms P-R-T Axes : 030 -38 035 degrees QTc Int : 447 ms Normal sinus rhythm Left axis deviation Abnormal ECG Confirmed by JAZIEL BOWER, SUNITA ([id number]), supervising editor news reel SHARON STEWART ([id number]) on 07/28/2018 1:37:51 PM Referred By: Confirmed By:SUNITA SHERIFF MD
[2018-07-28] MEDS: Insulin Glargine 50 UNITS in Pre-Filled Syringe 1 EACH SC SCH (20:26)
[2018-07-28] MEDS: Atorvastatin Calcium 40 MG TAB PO SCH (20:26)
[2018-07-29] MEDS: Prasugrel 10 MG TAB PO SCH (07:43)
[2018-07-29] MEDS: Cefdinir 300 MG CAP PO SCH ×2 (07:43→22:11)
[2018-07-29] MEDS: Metoprolol Tartrate 25 MG TAB PO SCH (07:43)
[2018-07-29] MEDS: Levothyroxine 150 MCG TAB PO SCH (07:43)
[2018-07-29] MEDS: Furosemide 40 MG TAB PO SCH (07:43)
[2018-07-29] MEDS: Saccharomyces boulardii 250 MG CAP PO SCH (07:43)
[2018-07-29] MEDS: Heparin 5,000 UNITS/ML VIAL SC SCH ×2 (07:43→22:12)
[2018-07-29] MEDS: predniSONE 20 MG TAB PO SCH (07:43)
--- NOTE | 2018-07-29 11:21 | PDOC.PN ---
- Subjective Encounter Start Date: 07/29/18 Encounter Start Time: 09:10 Patient seen and examined. No new complaints. No overnight events - Objective Resuscitation Status: Resuscitation Status FULL:Full Resuscitation MAR Reviewed: Yes Vital Signs & Weight: Vital Signs (12 hours) Temp Pulse Resp BP Pulse Ox 07/29/18 07:38 98 07/29/18 07:34 98 F 62 16 151/74 H 95 Weight Weight 219 lb I&O: 07/28/18 07/29/18 07/30/18 06:59 06:59 06:59 Intake Total 1750 1830 Balance 1750 1830 Result Diagrams: 07/28/18 09:32 07/28/18 09:32 Additional Labs: Accuchecks 07/29/18 07/29/18 07/28/18 11:03 05:29 19:26 POC Glucose 191 H 138 H 470 H 07/28/18 07/28/18 16:26 11:07 POC Glucose 386 H 336 H Phys Exam - Physical Examination Constitutional: NAD HEENT: PERRLA, moist MMs, sclera anicteric Neck: no JVD, supple Respiratory: no wheezing, no rales, no rhonchi Cardiovascular: RRR, no significant murmur, no rub Gastrointestinal: soft, non-tender, no distention, positive bowel sounds Musculoskeletal: no edema, pulses present Neurological: non-focal, normal sensation, moves all 4 limbs Lymphatic: no nodes Psychiatric: normal affect, A&O x 3 Skin: no rash, normal turgor Dx/Plan (1) Acute kidney failure Status: Resolved (2) Cellulitis of left hand Code(s): L03.114 - CELLULITIS OF LEFT UPPER LIMB Status: Acute (3) Dehydration Code(s): E86.0 - DEHYDRATION Status: Resolved (4) Hyponatremia Code(s): E87.1 - HYPO-OSMOLALITY AND HYPONATREMIA Status: Resolved (5) Leucocytosis Code(s): D72.829 - ELEVATED WHITE BLOOD CELL COUNT, UNSPECIFIED Status: Acute Comment: (6) UTI (urinary tract infection) Status: Acute (7) Weakness generalized Code(s): R53.1 - WEAKNESS Status: Acute (8) Anemia, normocytic normochromic Code(s): D64.9 - ANEMIA, UNSPECIFIED Status: Chronic (9) Anxiety and depression Code(s): F41.9 - ANXIETY DISORDER, UNSPECIFIED; F32.9 - MAJOR DEPRESSIVE DISORDER, SINGLE EPISODE, UNSPECIFIED Status: Chronic (10) CAD (coronary artery disease) Code(s): I25.10 - ATHSCL HEART DISEASE OF [place] CORONARY ARTERY W/O ANG PCTRS Status: Chronic (11) Diabetes type 2, controlled Code(s): E11.9 - TYPE 2 DIABETES MELLITUS WITHOUT COMPLICATIONS Status: Chronic (12) Dyslipidemia Code(s): E78.5 - HYPERLIPIDEMIA, UNSPECIFIED Status: Chronic (13) Hypertension Code(s): I10 - ESSENTIAL (PRIMARY) HYPERTENSION Status: Chronic (14) Hypothyroidism Code(s): E03.9 - HYPOTHYROIDISM, UNSPECIFIED Status: Chronic (15) Obesity (BMI 30.0-34.9) Code(s): E66.9 - OBESITY, UNSPECIFIED Status: Chronic (16) Abnormal LFTs Code(s): R94.5 - ABNORMAL RESULTS OF LIVER FUNCTION STUDIES Status: Acute (17) Hypoglycemia associated with type 2 diabetes mellitus Code(s): E11.649 - TYPE 2 DIABETES MELLITUS WITH HYPOGLYCEMIA WITHOUT COMA Status: Acute - Plan cont current plan of care, continue antibiotics * continue omnicef * continue prednisone * continue PT * will need rehab placement * medication reviewed as below * symptomatic treatment * repeat labs tomorrow. Review of Systems - Review of Systems ENT: negative: Ear Pain, Ear Discharge, Nose Pain, Nose Discharge, Nose Congestion, Mouth Pain, Mouth Swelling, Throat Pain, Throat Swelling, Other Respiratory: negative: Cough, Dry, Shortness of Breath, Hemoptysis, SOB with Excertion, Pleuritic Pain, Sputum, Wheezing Cardiovascular: negative: chest pain, palpitations, orthopnea, paroxysmal nocturnal dyspnea, edema, light headedness, other Gastrointestinal: negative: Nausea, Vomiting, Abdominal Pain, Diarrhea, Constipation, Melena, Hematochezia, Other Genitourinary: negative: Dysuria, Frequency, Incontinence, Hematuria, Retention , Other Musculoskeletal: negative: Neck Pain, Shoulder Pain, Arm Pain, Back Pain, Hand Pain, Leg Pain, Foot Pain, Other Skin: negative: Rash, Lesions, Henrry, Bruising, Other - Medications/Allergies Allergies/Adverse Reactions: Allergies Allergy/AdvReac Type Severity Reaction Status Date / Time adhesive tape Allergy Verified 07/22/18 22:00 latex Allergy Verified 07/22/18 22:00 lidocaine Allergy Verified 07/22/18 22:00 Medications: Current Medications Acetaminophen (Tylenol) 650 mg PO Q4H PRN PRN Reason: Headache/Fever or Pain Last Admin: 07/26/18 20:38 Dose: 650 mg Hydrocodone Bitart/Acetaminophen ([place] 5/325) 1 tab PO Q4H PRN PRN Reason: Moderate Pain (4-6) Last Admin: 07/23/18 20:08 Dose: 1 tab Hydrocodone Bitart/Acetaminophen ([place] 5/325) 2 tab PO Q4H PRN PRN Reason: Severe Pain (7-10) Last Admin: 07/23/18 08:57 Dose: 2 tab Al Hydroxide/Mg Hydroxide (Maalox) 30 ml PO Q6H PRN PRN Reason: Heartburn or Indigestion Albuterol/Ipratropium (Duoneb) 3 ml NEB [id number] PRN PRN Reason: SOB &/or Wheezing Artificial Tears (Tears Naturale) 0 drop EA EYE PRN PRN PRN Reason: Dry Eyes Atorvastatin Calcium (Lipitor) 80 mg PO [facility] Last Admin: 07/28/18 20:26 Dose: 80 mg Bisacodyl (Dulcolax) 10 mg PO DAILYPRN PRN PRN Reason: Constipation Calcium Carbonate (Tums) 1,000 mg PO Q4H PRN PRN Reason: Heartburn or Indigestion Cefdinir (Omnicef) 300 mg PO BID [facility] Last Admin: 07/29/18 07:43 Dose: 300 mg Dextrose/Water (Dextrose 50%) 25 gm IVP PRN PRN PRN Reason: HYPOGLYCEMIA PROTOCOL Furosemide (Lasix) 40 mg PO DAILY-[facility] Last Admin: 07/29/18 07:43 Dose: 40 mg Glucagon (Glucagon) 1 mg IM PRN PRN PRN Reason: HYPOGLYCEMIA PROTOCOL Guaifenesin (Robitussin Sf) 200 mg PO Q4H PRN PRN Reason: Cough Heparin Sodium (Porcine) (Heparin) 5,000 units SC BID [facility] Last Admin: 07/29/18 07:43 Dose: 5,000 units Hydralazine HCl (Apresoline) 10 mg SLOW IVP Q4H PRN PRN Reason: Systolic BP > 180 Insulin Glargine 50 units/ (Miscellaneous Medication) 0.5 mls @ 0 mls/hr SC [facility] Last Admin: 07/28/18 20:26 Dose: 0.5 mls Dextrose/Water (D5w) 1,000 mls @ 0 mls/hr IV INF PRN PRN Reason: HYPOGLYCEMIA PROTOCOL Insulin Human Regular (Humulin R) 0 units SC .MILD SLIDING PRN; Protocol PRN Reason: MILD SLIDING SCALE Last Admin: 07/28/18 17:43 Dose: 6 unit Insulin Human Regular (Humulin R) 0 units SC .BEDTIME SLIDING SC PRN; Protocol PRN Reason: BEDTIME SLIDING SCALE Last Admin: 07/28/18 20:27 Dose: 5 unit Levothyroxine Sodium (Synthroid) 150 mcg PO DAILY [facility] Last Admin: 07/29/18 07:43 Dose: 150 mcg Loperamide HCl (Imodium) 2 mg PO PRN PRN PRN Reason: Diarrhea/Loose Stools Loratadine (Claritin) 10 mg PO DAILYPRN PRN PRN Reason: Sinus Symptoms Magnesium Hydroxide (Milk Of Magnesium) 30 ml PO DAILYPRN PRN PRN Reason: Constipation Metoprolol Tartrate (Lopressor) 25 mg PO DAILY [facility] Last Admin: 07/29/18 07:43 Dose: 25 mg Mineral Oil/White Petrolatum (Eucerin Cream) 0 gm TOP BIDPRN PRN PRN Reason: Dry Skin Ondansetron HCl (Zofran Odt) 4 mg PO Q6H PRN PRN Reason: Nausea/Vomiting Ondansetron HCl (Zofran) 4 mg IVP Q6H PRN PRN Reason: Nausea/Vomiting Last Admin: 07/25/18 18:44 Dose: 4 mg Pantoprazole Sodium (Protonix) 40 mg PO DAILY [facility] Last Admin: 07/29/18 07:43 Dose: 40 mg Phenol (Chloraseptic [place] 180 Ml Bot) 0 ml PO PRN PRN PRN Reason: Sore Throat Prasugrel (Effient) 10 mg PO DAILY [facility] Last Admin: 07/29/18 07:43 Dose: 10 mg Prednisone (Prednisone) 20 mg PO QA-[facility] Last Admin: 07/29/18 07:43 Dose: 20 mg Saccharomyces Boulardii (Florastor) 250 mg PO DAILY [facility] Last Admin: 07/29/18 07:43 Dose: 250 mg Senna (Senokot) 2 tab PO HSPRN PRN PRN Reason: Constipation Sertraline HCl (Zoloft) 100 mg PO HS [facility] Last Admin: 07/28/18 20:26 Dose: 100 mg Sodium Chloride ([place] Nasal [place] 0.65%) 0 ml EA NARE QIDPRN PRN PRN Reason: Nasal Congestion Last Admin: 07/26/18 08:23 Dose: 1 spr Temazepam (Restoril) 15 mg PO HSPRN PRN PRN Reason: Insomnia Last Admin: 07/26/18 22:00 Dose: 15 mg Throat Lozenges (Cepastat Lozenges) 1 christi PO Q2H PRN PRN Reason: Sore Throat Last Admin: 07/25/18 10:32 Dose: 1 christi
[2018-07-29] MEDS: Insulin Regular 300 UNITS/3 ML VIAL SC PRN ×2 (11:27→15:59)
--- NOTE | 2018-07-29 14:31 | EKG ---
Test Reason : STAT Blood Pressure : / mmHG Vent. Rate : 089 BPM Atrial Rate : 089 BPM P-R Int : 162 ms QRS Dur : 084 ms QT Int : 370 ms P-R-T Axes : 056 -39 043 degrees QTc Int : 450 ms Normal sinus rhythm Left axis deviation Abnormal ECG When compared with ECG of 22-JUL-2018 13:51, (Unconfirmed) No significant change was found Confirmed by MARY NAPIER ([id number]) on 07/29/2018 2:31:24 PM Referred By: TAVARES Confirmed By:MARY NAPIER
[2018-07-29] MEDS: Atorvastatin Calcium 40 MG TAB PO SCH (22:11)
[2018-07-29] MEDS: Insulin Glargine 50 UNITS in Pre-Filled Syringe 1 EACH SC SCH (22:12)
[2018-07-30 04:36] LABS: #Basophils 0.1 thou/uL (0.0-0.2); #Eosinphils 0.4 thou/uL (0.0-0.7); #Lymphocytes 3.8 thou/uL (1.20-3.40); #Monocytes 1.1 thou/uL (0.11-0.59); %Basophils 0.6 % (0.0-1.0); %Eosinophils 3.1 % (0.0-10.0); %Monocytes 8.5 % (0.0-10.0); %Neutrophils 59.8 % (42.0-75.0); Hemoglobin 8.3 g/dL (12.0-16.0); Mean Corpuscular HGB CONC 31.2 g/dL (32.0-36.0); Mean Corpuscular Hemoglobin 26.7 pg (27.0-31.0); Mean Corpuscular Volume 85.8 fL (78.0-98.0); Mean Platelet Volume 6.4 fL (7.4-10.4); Platelet Count 531 thou/uL (130-400); RBC Distribution Width 15.2 % (11.5-14.5); Red Blood Cell (RBC) Count 3.12 mill/uL (4.20-5.40); White Blood Cell (WBC) Count 13.4 thou/uL (4.8-10.8)
[2018-07-30 04:58] LABS: ALT (SGPT) 73 U/L (8-55); AST (SGOT) 59 U/L (5-34); Albumin 2.4 g/dL (3.4-4.8); Alkaline Phosphatase 136 U/L (40-150); Anion Gap 11 mmol/L (10-20); BUN (Urea Nitrogen) 44 mg/dL (9.8-20.1); Bilirubin, Total 0.2 mg/dL (0.2-1.2); CRP (Inflammatory) 5.54 mg/dL (= or < 0.5); Calc. Creatinine Clearance 87 mL/min (70-130); Calcium 8.6 mg/dL (7.8-10.44); Carbon Dioxide 25 mmol/L (23-31); Chloride 107 mmol/L (98-107); Estimated GFR-MDRD 55; Globulin 4.1 g/dL (2.4-3.5); Glucose 164 mg/dL (80-115); Potassium 3.9 mmol/L (3.5-5.1); Protein, Total 6.5 g/dL (6.0-8.3); Sodium 139 mmol/L (136-145)
[2018-07-30] MEDS: Saccharomyces boulardii 250 MG CAP PO SCH (09:14)
[2018-07-30] MEDS: Prasugrel 10 MG TAB PO SCH (09:15)
[2018-07-30] MEDS: Metoprolol Tartrate 25 MG TAB PO SCH (09:15)
[2018-07-30] MEDS: predniSONE 20 MG TAB PO SCH (09:15)
[2018-07-30] MEDS: Cefdinir 300 MG CAP PO SCH ×2 (09:15→22:01)
[2018-07-30] MEDS: Levothyroxine 150 MCG TAB PO SCH (09:15)
[2018-07-30] MEDS: Heparin 5,000 UNITS/ML VIAL SC SCH ×2 (09:15→22:04)
[2018-07-30] MEDS: Furosemide 40 MG TAB PO SCH (09:15)
--- NOTE | 2018-07-30 10:58 | PDOC.PN ---
- Subjective Encounter Start Date: 07/30/18 Encounter Start Time: 10:00 Patient seen and examined. No new complaints. No overnight events - Objective Resuscitation Status: Resuscitation Status FULL:Full Resuscitation MAR Reviewed: Yes Vital Signs & Weight: Vital Signs (12 hours) Temp Pulse Resp BP Pulse Ox 07/30/18 07:48 98.2 F 67 16 123/70 97 Weight Weight 219 lb I&O: 07/29/18 07/30/18 07/31/18 06:59 06:59 06:59 Intake Total 1830 1250 Balance 1830 1250 Result Diagrams: 07/30/18 04:08 07/30/18 04:08 Additional Labs: Accuchecks 07/30/18 07/29/18 07/29/18 04:33 20:41 15:59 POC Glucose 161 H 303 H 297 H 07/29/18 11:03 POC Glucose 191 H Phys Exam - Physical Examination Constitutional: NAD HEENT: PERRLA, moist MMs, sclera anicteric Neck: no JVD, supple Respiratory: no wheezing, no rales, no rhonchi Cardiovascular: RRR, no significant murmur, no rub Gastrointestinal: soft, non-tender, no distention, positive bowel sounds Musculoskeletal: no edema, pulses present Neurological: non-focal, normal sensation, moves all 4 limbs Psychiatric: normal affect, A&O x 3 Skin: no rash, normal turgor Dx/Plan (1) Acute kidney failure Status: Resolved (2) Cellulitis of left hand Code(s): L03.114 - CELLULITIS OF LEFT UPPER LIMB Status: Acute (3) Dehydration Code(s): E86.0 - DEHYDRATION Status: Resolved (4) Hyponatremia Code(s): E87.1 - HYPO-OSMOLALITY AND HYPONATREMIA Status: Resolved (5) Leucocytosis Code(s): D72.829 - ELEVATED WHITE BLOOD CELL COUNT, UNSPECIFIED Status: Acute Comment: (6) UTI (urinary tract infection) Status: Acute (7) Weakness generalized Code(s): R53.1 - WEAKNESS Status: Acute (8) Anemia, normocytic normochromic Code(s): D64.9 - ANEMIA, UNSPECIFIED Status: Chronic (9) Anxiety and depression Code(s): F41.9 - ANXIETY DISORDER, UNSPECIFIED; F32.9 - MAJOR DEPRESSIVE DISORDER, SINGLE EPISODE, UNSPECIFIED Status: Chronic (10) CAD (coronary artery disease) Code(s): I25.10 - ATHSCL HEART DISEASE OF [place] CORONARY ARTERY W/O ANG PCTRS Status: Chronic (11) Diabetes type 2, controlled Code(s): E11.9 - TYPE 2 DIABETES MELLITUS WITHOUT COMPLICATIONS Status: Chronic (12) Dyslipidemia Code(s): E78.5 - HYPERLIPIDEMIA, UNSPECIFIED Status: Chronic (13) Hypertension Code(s): I10 - ESSENTIAL (PRIMARY) HYPERTENSION Status: Chronic (14) Hypothyroidism Code(s): E03.9 - HYPOTHYROIDISM, UNSPECIFIED Status: Chronic (15) Obesity (BMI 30.0-34.9) Code(s): E66.9 - OBESITY, UNSPECIFIED Status: Chronic (16) Abnormal LFTs Code(s): R94.5 - ABNORMAL RESULTS OF LIVER FUNCTION STUDIES Status: Acute (17) Hypoglycemia associated with type 2 diabetes mellitus Code(s): E11.649 - TYPE 2 DIABETES MELLITUS WITH HYPOGLYCEMIA WITHOUT COMA Status: Acute - Plan cont current plan of care, 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 * check ferritin Review of Systems - Review of Systems Eyes: negative: Pain, Vision Change, Conjunctivae Inflammation, Eyelid Inflammation, Redness, Other ENT: negative: Ear Pain, Ear Discharge, Nose Pain, Nose Discharge, Nose Congestion, Mouth Pain, Mouth Swelling, Throat Pain, Throat Swelling, Other Respiratory: negative: Cough, Dry, Shortness of Breath, Hemoptysis, SOB with Excertion, Pleuritic Pain, Sputum, Wheezing Cardiovascular: negative: chest pain, palpitations, orthopnea, paroxysmal nocturnal dyspnea, edema, light headedness, other Gastrointestinal: negative: Nausea, Vomiting, Abdominal Pain, Diarrhea, Constipation, Melena, Hematochezia, Other Genitourinary: negative: Dysuria, Frequency, Incontinence, Hematuria, Retention , Other Musculoskeletal: negative: Neck Pain, Shoulder Pain, Arm Pain, Back Pain, Hand Pain, Leg Pain, Foot Pain, Other Skin: negative: Rash, Lesions, Henrry, Bruising, Other - Medications/Allergies Allergies/Adverse Reactions: Allergies Allergy/AdvReac Type Severity Reaction Status Date / Time adhesive tape Allergy Verified 07/22/18 22:00 latex Allergy Verified 07/22/18 22:00 lidocaine Allergy Verified 07/22/18 22:00 Medications: Current Medications Acetaminophen (Tylenol) 650 mg PO Q4H PRN PRN Reason: Headache/Fever or Pain Last Admin: 07/26/18 20:38 Dose: 650 mg Hydrocodone Bitart/Acetaminophen ([place] 5/325) 1 tab PO Q4H PRN PRN Reason: Moderate Pain (4-6) Last Admin: 07/23/18 20:08 Dose: 1 tab Hydrocodone Bitart/Acetaminophen ([place] 5/325) 2 tab PO Q4H PRN PRN Reason: Severe Pain (7-10) Last Admin: 07/23/18 08:57 Dose: 2 tab Al Hydroxide/Mg Hydroxide (Maalox) 30 ml PO Q6H PRN PRN Reason: Heartburn or Indigestion Albuterol/Ipratropium (Duoneb) 3 ml NEB [id number] PRN PRN Reason: SOB &/or Wheezing Artificial Tears (Tears Naturale) 0 drop EA EYE PRN PRN PRN Reason: Dry Eyes Atorvastatin Calcium (Lipitor) 80 mg PO [facility] Last Admin: 07/29/18 22:11 Dose: 80 mg Bisacodyl (Dulcolax) 10 mg PO DAILYPRN PRN PRN Reason: Constipation Calcium Carbonate (Tums) 1,000 mg PO Q4H PRN PRN Reason: Heartburn or Indigestion Cefdinir (Omnicef) 300 mg PO BID [facility] Last Admin: 07/30/18 09:15 Dose: 300 mg Dextrose/Water (Dextrose 50%) 25 gm IVP PRN PRN PRN Reason: HYPOGLYCEMIA PROTOCOL Furosemide (Lasix) 40 mg PO DAILY-[facility] Last Admin: 07/30/18 09:15 Dose: 40 mg Glucagon (Glucagon) 1 mg IM PRN PRN PRN Reason: HYPOGLYCEMIA PROTOCOL Guaifenesin (Robitussin Sf) 200 mg PO Q4H PRN PRN Reason: Cough Heparin Sodium (Porcine) (Heparin) 5,000 units SC BID [facility] Last Admin: 07/30/18 09:15 Dose: 5,000 units Hydralazine HCl (Apresoline) 10 mg SLOW IVP Q4H PRN PRN Reason: Systolic BP > 180 Insulin Glargine 50 units/ (Miscellaneous Medication) 0.5 mls @ 0 mls/hr SC [facility] Last Admin: 07/29/18 22:12 Dose: 0.5 mls Dextrose/Water (D5w) 1,000 mls @ 0 mls/hr IV INF PRN PRN Reason: HYPOGLYCEMIA PROTOCOL Insulin Human Regular (Humulin R) 0 units SC .MILD SLIDING PRN; Protocol PRN Reason: MILD SLIDING SCALE Last Admin: 07/29/18 15:59 Dose: 4 unit Insulin Human Regular (Humulin R) 0 units SC .BEDTIME SLIDING SC PRN; Protocol PRN Reason: BEDTIME SLIDING SCALE Last Admin: 07/28/18 20:27 Dose: 5 unit Levothyroxine Sodium (Synthroid) 150 mcg PO DAILY [facility] Last Admin: 07/30/18 09:15 Dose: 150 mcg Loperamide HCl (Imodium) 2 mg PO PRN PRN PRN Reason: Diarrhea/Loose Stools Loratadine (Claritin) 10 mg PO DAILYPRN PRN PRN Reason: Sinus Symptoms Magnesium Hydroxide (Milk Of Magnesium) 30 ml PO DAILYPRN PRN PRN Reason: Constipation Metoprolol Tartrate (Lopressor) 25 mg PO DAILY [facility] Last Admin: 07/30/18 09:15 Dose: 25 mg Mineral Oil/White Petrolatum (Eucerin Cream) 0 gm TOP BIDPRN PRN PRN Reason: Dry Skin Ondansetron HCl (Zofran Odt) 4 mg PO Q6H PRN PRN Reason: Nausea/Vomiting Ondansetron HCl (Zofran) 4 mg IVP Q6H PRN PRN Reason: Nausea/Vomiting Last Admin: 07/25/18 18:44 Dose: 4 mg Pantoprazole Sodium (Protonix) 40 mg PO DAILY [facility] Last Admin: 07/30/18 09:14 Dose: 40 mg Phenol (Chloraseptic [place] 180 Ml Bot) 0 ml PO PRN PRN PRN Reason: Sore Throat Prasugrel (Effient) 10 mg PO DAILY [facility] Last Admin: 07/30/18 09:15 Dose: 10 mg Prednisone (Prednisone) 20 mg PO QA-[facility] Last Admin: 07/30/18 09:15 Dose: 20 mg Saccharomyces Boulardii (Florastor) 250 mg PO DAILY [facility] Last Admin: 07/30/18 09:14 Dose: 250 mg Senna (Senokot) 2 tab PO HSPRN PRN PRN Reason: Constipation Sertraline HCl (Zoloft) 100 mg PO HS [facility] Last Admin: 07/29/18 22:12 Dose: 100 mg Sodium Chloride ([place] Nasal [place] 0.65%) 0 ml EA NARE QIDPRN PRN PRN Reason: Nasal Congestion Last Admin: 07/26/18 08:23 Dose: 1 spr Temazepam (Restoril) 15 mg PO HSPRN PRN PRN Reason: Insomnia Last Admin: 07/26/18 22:00 Dose: 15 mg Throat Lozenges (Cepastat Lozenges) 1 christi PO Q2H PRN PRN Reason: Sore Throat Last Admin: 07/25/18 10:32 Dose: 1 christi
[2018-07-30] MEDS: Insulin Regular 300 UNITS/3 ML VIAL SC PRN ×3 (12:25→22:05)
[2018-07-30] MEDS: Atorvastatin Calcium 40 MG TAB PO SCH (22:00)
[2018-07-30] MEDS: Insulin Glargine 50 UNITS in Pre-Filled Syringe 1 EACH SC SCH (22:03)
[2018-07-31] MEDS: Insulin Regular 300 UNITS/3 ML VIAL SC PRN (06:37)
[2018-07-31] MEDS ORDERED: Dextrose 5% in Water 1,000 ML IV PRN (07:18)
[2018-07-31] MEDS ORDERED: HumaLOG 300 UNITS/3 ML VIAL SC PRN (07:18)
[2018-07-31] MEDS: Levothyroxine 150 MCG TAB PO SCH (09:14)
[2018-07-31] MEDS: Lisinopril 10 MG TAB PO SCH (09:14)
[2018-07-31] MEDS: Glimepiride 4 MG TAB PO SCH (09:14)
[2018-07-31] MEDS: Saccharomyces boulardii 250 MG CAP PO SCH (09:14)
[2018-07-31] MEDS: Cefdinir 300 MG CAP PO SCH ×2 (09:14→22:36)
[2018-07-31] MEDS: Heparin 5,000 UNITS/ML VIAL SC SCH ×2 (09:15→22:36)
[2018-07-31] MEDS: Prasugrel 10 MG TAB PO SCH (09:15)
[2018-07-31] MEDS: predniSONE 20 MG TAB PO SCH (09:15)
[2018-07-31] MEDS: Metoprolol Tartrate 25 MG TAB PO SCH (09:15)
[2018-07-31] MEDS: metFORMIN 500 MG TAB PO SCH ×2 (09:15→16:39)
[2018-07-31] MEDS: Furosemide 40 MG TAB PO SCH (09:16)
--- NOTE | 2018-07-31 09:48 | PDOC.PN ---
- Subjective Encounter Start Date: 07/31/18 Encounter Start Time: 09:20 Patient seen and examined. No new complaints. No overnight events - Objective Resuscitation Status: Resuscitation Status FULL:Full Resuscitation MAR Reviewed: Yes Vital Signs & Weight: Vital Signs (12 hours) Temp Pulse Resp BP BP Pulse Ox 07/31/18 09:14 125/70 07/31/18 07:14 97.6 F 67 18 125/70 96 Weight Weight 219 lb I&O: 07/30/18 07/31/18 08/01/18 06:59 06:59 06:59 Intake Total 1250 1300 Balance 1250 1300 Result Diagrams: 07/30/18 04:08 07/30/18 04:08 Additional Labs: Accuchecks 07/31/18 07/30/18 07/30/18 04:27 19:55 16:35 POC Glucose 307 H 392 H 377 H 07/30/18 11:21 POC Glucose 311 H Phys Exam - Physical Examination Constitutional: NAD HEENT: PERRLA, moist MMs, sclera anicteric Neck: no JVD, supple Respiratory: no wheezing, no rales, no rhonchi Cardiovascular: RRR, no significant murmur, no rub Gastrointestinal: soft, non-tender, no distention, positive bowel sounds Musculoskeletal: no edema, pulses present Neurological: non-focal, normal sensation, moves all 4 limbs Psychiatric: normal affect, A&O x 3 Skin: no rash, normal turgor Dx/Plan (1) Acute kidney failure Status: Resolved (2) Cellulitis of left hand Code(s): L03.114 - CELLULITIS OF LEFT UPPER LIMB Status: Acute (3) Dehydration Code(s): E86.0 - DEHYDRATION Status: Resolved (4) Hyponatremia Code(s): E87.1 - HYPO-OSMOLALITY AND HYPONATREMIA Status: Resolved (5) Leucocytosis Code(s): D72.829 - ELEVATED WHITE BLOOD CELL COUNT, UNSPECIFIED Status: Acute Comment: (6) UTI (urinary tract infection) Status: Acute (7) Weakness generalized Code(s): R53.1 - WEAKNESS Status: Acute (8) Anemia, normocytic normochromic Code(s): D64.9 - ANEMIA, UNSPECIFIED Status: Chronic (9) Anxiety and depression Code(s): F41.9 - ANXIETY DISORDER, UNSPECIFIED; F32.9 - MAJOR DEPRESSIVE DISORDER, SINGLE EPISODE, UNSPECIFIED Status: Chronic (10) CAD (coronary artery disease) Code(s): I25.10 - ATHSCL HEART DISEASE OF [place] CORONARY ARTERY W/O ANG PCTRS Status: Chronic (11) Diabetes type 2, controlled Code(s): E11.9 - TYPE 2 DIABETES MELLITUS WITHOUT COMPLICATIONS Status: Chronic (12) Dyslipidemia Code(s): E78.5 - HYPERLIPIDEMIA, UNSPECIFIED Status: Chronic (13) Hypertension Code(s): I10 - ESSENTIAL (PRIMARY) HYPERTENSION Status: Chronic (14) Hypothyroidism Code(s): E03.9 - HYPOTHYROIDISM, UNSPECIFIED Status: Chronic (15) Obesity (BMI 30.0-34.9) Code(s): E66.9 - OBESITY, UNSPECIFIED Status: Chronic (16) Abnormal LFTs Code(s): R94.5 - ABNORMAL RESULTS OF LIVER FUNCTION STUDIES Status: Acute (17) Hypoglycemia associated with type 2 diabetes mellitus Code(s): E11.649 - TYPE 2 DIABETES MELLITUS WITH HYPOGLYCEMIA WITHOUT COMA Status: Acute - Plan cont current plan of care, continue antibiotics * pt has leucocytosis, high esr, high crp, polyarthralgia with proximal muscle involvement on admission, responded well to steroid, now has high ferritin, suspecting PMR vs adult still's disease, I advised pt to follow up with rheumatology * await rehab placement * medication reviewed as below * symptomatic treatment * add metformin and amaryl for high BS. Review of Systems - Review of Systems ENT: negative: Ear Pain, Ear Discharge, Nose Pain, Nose Discharge, Nose Congestion, Mouth Pain, Mouth Swelling, Throat Pain, Throat Swelling, Other Respiratory: negative: Cough, Dry, Shortness of Breath, Hemoptysis, SOB with Excertion, Pleuritic Pain, Sputum, Wheezing Cardiovascular: negative: chest pain, palpitations, orthopnea, paroxysmal nocturnal dyspnea, edema, light headedness, other Gastrointestinal: negative: Nausea, Vomiting, Abdominal Pain, Diarrhea, Constipation, Melena, Hematochezia, Other Genitourinary: negative: Dysuria, Frequency, Incontinence, Hematuria, Retention , Other Musculoskeletal: negative: Neck Pain, Shoulder Pain, Arm Pain, Back Pain, Hand Pain, Leg Pain, Foot Pain, Other Skin: negative: Rash, Lesions, Henrry, Bruising, Other - Medications/Allergies Allergies/Adverse Reactions: Allergies Allergy/AdvReac Type Severity Reaction Status Date / Time adhesive tape Allergy Verified 07/22/18 22:00 latex Allergy Verified 07/22/18 22:00 lidocaine Allergy Verified 07/22/18 22:00 Medications: Current Medications Acetaminophen (Tylenol) 650 mg PO Q4H PRN PRN Reason: Headache/Fever or Pain Last Admin: 07/26/18 20:38 Dose: 650 mg Hydrocodone Bitart/Acetaminophen (Ulysses 5/325) 1 tab PO Q4H PRN PRN Reason: Moderate Pain (4-6) Last Admin: 07/23/18 20:08 Dose: 1 tab Hydrocodone Bitart/Acetaminophen (Ulysses 5/325) 2 tab PO Q4H PRN PRN Reason: Severe Pain (7-10) Last Admin: 07/23/18 08:57 Dose: 2 tab Al Hydroxide/Mg Hydroxide (Maalox) 30 ml PO Q6H PRN PRN Reason: Heartburn or Indigestion Albuterol/Ipratropium (Duoneb) 3 ml NEB [id number] PRN PRN Reason: SOB &/or Wheezing Artificial Tears (Tears Naturale) 0 drop EA EYE PRN PRN PRN Reason: Dry Eyes Atorvastatin Calcium (Lipitor) 80 mg PO HS [facility] Last Admin: 07/30/18 22:00 Dose: 80 mg Bisacodyl (Dulcolax) 10 mg PO DAILYPRN PRN PRN Reason: Constipation Calcium Carbonate (Tums) 1,000 mg PO Q4H PRN PRN Reason: Heartburn or Indigestion Cefdinir (Omnicef) 300 mg PO BID [facility] Last Admin: 07/31/18 09:14 Dose: 300 mg Dextrose/Water (Dextrose 50%) 25 gm IVP PRN PRN PRN Reason: HYPOGLYCEMIA PROTOCOL Furosemide (Lasix) 40 mg PO DAILY-AC [facility] Last Admin: 07/31/18 09:16 Dose: 40 mg Glimepiride (Amaryl) 4 mg PO QAM-WM [facility] Last Admin: 07/31/18 09:14 Dose: 4 mg Glucagon (Glucagon) 1 mg IM PRN PRN PRN Reason: HYPOGLYCEMIA PROTOCOL Guaifenesin (Robitussin Sf) 200 mg PO Q4H PRN PRN Reason: Cough Heparin Sodium (Porcine) (Heparin) 5,000 units SC BID [facility] Last Admin: 07/31/18 09:15 Dose: 5,000 units Hydralazine HCl (Apresoline) 10 mg SLOW IVP Q4H PRN PRN Reason: Systolic BP > 180 Insulin Glargine 50 units/ (Miscellaneous Medication) 0.5 mls @ 0 mls/hr SC [facility] Last Admin: 07/30/18 22:03 Dose: 0.5 mls Dextrose/Water (D5w) 1,000 mls @ 0 mls/hr IV .Q0M PRN PRN Reason: Hypoglycemia Insulin Human Lispro (Humalog) 0 units SC .AGGRESSIVE SLIDING PRN PRN Reason: Aggressive Correctional Scale Insulin Human Lispro (Humalog) 0 units SC .BEDTIME SLIDING SC PRN PRN Reason: Bedtime Correctional Scale Levothyroxine Sodium (Synthroid) 150 mcg PO DAILY [facility] Last Admin: 07/31/18 09:14 Dose: 150 mcg Lisinopril (Zestril) 10 mg PO DAILY [facility] Last Admin: 07/31/18 09:14 Dose: 10 mg Loperamide HCl (Imodium) 2 mg PO PRN PRN PRN Reason: Diarrhea/Loose Stools Loratadine (Claritin) 10 mg PO DAILYPRN PRN PRN Reason: Sinus Symptoms Magnesium Hydroxide (Milk Of Magnesium) 30 ml PO DAILYPRN PRN PRN Reason: Constipation Metformin HCl (Glucophage) 1,000 mg PO BID-[facility] Last Admin: 07/31/18 09:15 Dose: 1,000 mg Metoprolol Tartrate (Lopressor) 25 mg PO DAILY [facility] Last Admin: 07/31/18 09:15 Dose: 25 mg Mineral Oil/White Petrolatum (Eucerin Cream) 0 gm TOP BIDPRN PRN PRN Reason: Dry Skin Ondansetron HCl (Zofran Odt) 4 mg PO Q6H PRN PRN Reason: Nausea/Vomiting Ondansetron HCl (Zofran) 4 mg IVP Q6H PRN PRN Reason: Nausea/Vomiting Last Admin: 07/25/18 18:44 Dose: 4 mg Pantoprazole Sodium (Protonix) 40 mg PO DAILY [facility] Last Admin: 07/31/18 09:15 Dose: 40 mg Phenol (Chloraseptic Pauline 180 Ml Bot) 0 ml PO PRN PRN PRN Reason: Sore Throat Prasugrel (Effient) 10 mg PO DAILY [facility] Last Admin: 07/31/18 09:15 Dose: 10 mg Prednisone (Prednisone) 20 mg PO QA-[facility] Last Admin: 07/31/18 09:15 Dose: 20 mg Saccharomyces Boulardii (Florastor) 250 mg PO DAILY [facility] Last Admin: 07/31/18 09:14 Dose: 250 mg Senna (Senokot) 2 tab PO HSPRN PRN PRN Reason: Constipation Sertraline HCl (Zoloft) 100 mg PO HS [facility] Last Admin: 07/30/18 22:01 Dose: 100 mg Sodium Chloride ([place] Nasal Pauline 0.65%) 0 ml EA NARE QIDPRN PRN PRN Reason: Nasal Congestion Last Admin: 07/26/18 08:23 Dose: 1 spr Sodium Chloride (Flush - Normal Saline) 10 ml IVF Q12HR [facility] Last Admin: 07/31/18 09:16 Dose: 10 ml Sodium Chloride (Flush - Normal Saline) 10 ml IVF PRN PRN PRN Reason: Saline Flush Temazepam (Restoril) 15 mg PO HSPRN PRN PRN Reason: Insomnia Last Admin: 07/26/18 22:00 Dose: 15 mg Throat Lozenges (Cepastat Lozenges) 1 christi PO Q2H PRN PRN Reason: Sore Throat Last Admin: 07/25/18 10:32 Dose: 1 christi
[2018-07-31] MEDS: HumaLOG 300 UNITS/3 ML VIAL SC PRN ×2 (13:03→16:37)
[2018-07-31] MEDS: Atorvastatin Calcium 40 MG TAB PO SCH (22:36)
[2018-07-31] MEDS: Insulin Glargine 50 UNITS in Pre-Filled Syringe 1 EACH SC SCH (22:36)
[2018-08-01] MEDS: Lisinopril 10 MG TAB PO SCH (08:04)
[2018-08-01] MEDS: Saccharomyces boulardii 250 MG CAP PO SCH (08:05)
[2018-08-01] MEDS: Levothyroxine 150 MCG TAB PO SCH (08:05)
[2018-08-01] MEDS: Metoprolol Tartrate 25 MG TAB PO SCH (08:05)
[2018-08-01] MEDS: metFORMIN 500 MG TAB PO SCH (08:05)
[2018-08-01] MEDS: predniSONE 20 MG TAB PO SCH (08:06)
[2018-08-01] MEDS: Glimepiride 4 MG TAB PO SCH (08:06)
[2018-08-01] MEDS: Cefdinir 300 MG CAP PO SCH (08:06)
[2018-08-01] MEDS: Furosemide 40 MG TAB PO SCH (08:06)
[2018-08-01] MEDS: Prasugrel 10 MG TAB PO SCH (08:07)
[2018-08-01] MEDS: Heparin 5,000 UNITS/ML VIAL SC SCH (08:08)
--- NOTE | 2018-08-01 11:09 | DIS ---
PRIMARY CARE PHYSICIAN: Geraldo Ivan M.D. DATE OF ADMISSION: 07/22/2018 DATE OF DISCHARGE: 08/01/2018 DISCHARGE DISPOSITION: Home. PRIMARY DISCHARGE DIAGNOSES: 1. Acute diastolic stage C, congestive heart failure. 2. Polymyalgia rheumatica/polyarticular gout/adult Still's disease. 3. Generalized proximal muscular weakness, improved. 4. Leukocytosis, improving. 5. Abnormal liver function tests, improving. 6. Inflammation of left wrist, resolved. 7. Hypoglycemia associated diabetes type 2, resolved. 8. Urinary tract infection treated in hospital. 9. Hyponatremia on admission. 10. Dehydration, corrected. 11. Acute kidney failure on admission, resolved. SECONDARY DISCHARGE DIAGNOSES: Obesity with BMI 33, hypothyroidism, hypertension, dyslipidemia, diab etes type 2, coronary artery disease, anxiety and depression, normocytic normochromic anemia. PRIMARY PROCEDURE/OPERATION: None. RADIOLOGICAL INVESTIGATION: Chest x-ray on admission showed no acute cardiopulmonary process. Pelvi s x-ray on admission showed no bony fracture. CT brain was negative for any acute intracranial proce ss. Abdomen and pelvis CT scan showed cholelithiasis and suspected moderate bilateral pleural effusi on with pulmonary vascular congestion. HIDA scan was negative for any cholecystitis. Echocardiograp hy showed diastolic dysfunction. Renal ultrasound was normal. SIGNIFICANT LABORATORY DATA: By the time of discharge, WBC 13.4, hemoglobin 8.3, platelet 531, INR 1 .2. Sodium 139, potassium 3.9, BUN 44, creatinine 1.01, calcium 8.6, uric acid 7.7, lactic acid 0.8, AST 59, ALT 73, alkaline phosphatase 176. CK 379. Troponin 0.010. CRP 5.54, albumin 2.4, ferritin 538.04. Urinalysis unremarkable. BRANDT negative, dsDNA negative. Hepatitis profile negative. DISCHARGE MEDICATIONS: Tramadol 25 mg p.o. q.4 hourly p.r.n., ____, Lipitor 80 mg p.o. daily, Trulic ity 0.75 mg subcu every 7 days, glimepiride 2 mg p.o. daily, Lantus 15 units subcu in the evening, Sy nthroid 150 mcg p.o. daily, lisinopril 2.5 mg p.o. daily, metformin 500 mg p.o. b.i.d., metoprolol 25 mg p.o. daily, Zoloft 100 mg p.o. at bedtime, Omnicef 500 mg p.o. b.i.d. for 5 days, Lasix 40 mg p.o . daily, Effient 10 mg p.o. daily, and prednisone 20 mg p.o. daily for 14 days. CONTRAINDICATIONS: None. CODE STATUS: FULL CODE. INPATIENT CONSULTANTS: None. ALLERGIES: LATEX, LIDOCAINE. DISCHARGE PLAN: Post hospital, the patient will follow up with primary care physician in 1 week. Th e patient is instructed to make appointment with a agent based modeler on an outpatient basis. HOSPITAL COURSE: This is a 67-year-old female with above-mentioned medical problem, who was admitted by Dr. Kamara on 07/23/2018. Please see her H&P for further detail. On admission, the patient was h aving generalized weakness. She was having diffuse myalgia and diffuse muscle weakness. She was not able to ambulate. She had poor appetite. She was feeling overall weak. On admission, she had leuk ocytosis, acute kidney failure, hyponatremia. Her urinalysis on admission was not suggestive of any infection. Her chest x-ray was also normal, so on admission, the patient was kept on Rocephin empiri dennis for possible infection given leukocytosis. Her culture remained negative. Her streptococcal c ulture remained negative. Patient did not have any improvement with antibiotic therapy only. Her le ukocytosis remained persistent. We checked CRP and sediment rate. CRP was significantly elevated wi th initially 36.09 and her ESR was also elevated with 89. At that point, we suspected some autoimmun e process. We sent BRANDT that came back negative. Her uric acid level was also elevated. We did not check initially ferritin, but ferritin was checked at the time of discharge, which was also high. He r LFT was abnormal and that is why we did CT of the abdomen and pelvis, especially we did CT because of find out any source of infection, but we do not find any other process other than cholelithiasis a nd that is why we did HIDA scan to rule out any calculous cholecystitis, but HIDA scan was normal. D uring this period, the patient was getting IV fluid and that is why the patient developed fluid overl oad and developed respiratory failure and she was requiring oxygen. We did echocardiography and foun d with a diastolic dysfunction. At that point, we started giving her Lasix and stopped IV fluid with that patient's renal function was also improving and her oxygen saturation also improved and diastol ic heart failure also improved. We suspected polymyalgia rheumatica versus adult Still's disease versus polyarticular gout based on c linical presentation and that is why we started on steroid. With steroid, the patient had significan t improvement and we changed to p.o. prednisone. The patient continued to improve her renal function , continued to improve her CRP, continue to improve initially because of her overall weakness, we dec ided to let her go to rehab, but as patient had significant improvement, patient decided to go home. Patient was also waiting for rehab approval. We discussed with the patient to continue all her prev ious diabetes medication and increased Amaryl and metformin dose if blood sugar remains high. She wi ll follow up with Rheumatology and primary care physician for further investigation. I have seen and examined the patient today. Review of systems reviewed with her and negative. PHYSICAL EXAMINATION: VITAL SIGNS: Currently, temperature 98.3, pulse 65, respiratory rate 18, saturation 98% on room air, blood pressure 132/56, weight 219 pounds. GENERAL: The patient is currently alert, awake, no obvious acute distress. HEAD: Normocephalic, atraumatic. EYES: Pupils round, reactive to light. Extraocular muscle intact. ENT: Oropharynx within normal limit. Moist mucous membrane, no oral lesion, no pharyngeal erythema, no exudate. NECK: Supple, no JVD, no thyromegaly, no carotid bruit. LUNGS: Clear to auscultation without any rhonchi or rales. CARDIAC: S1 and S2, regular. MUSCULOSKELETAL: No proximal weakness. Reflexes normal. No edema. NEUROLOGIC: Nonfocal examination. All new medication prescription sent to pharmacy and the patient is medically stable for discharge. Total time spent on discharge day 32 minutes.
[2018-08-01 11:45] VITALS: BP 128/74; TEMP 97.9
== END 2018-08-01 13:21 | disposition home or self-care (01) | DRG 682 ==
LOC: ERS 13:02 → OBSVTOIN 17:50 → T4-A 17:50
PROVIDERS: ADMIT Internal Medicine; ATTEND Internal Medicine
DX: N17.9 Acute kidney failure, unspecified (principal); I50.31 Acute diastolic (congestive) heart failure; N39.0 Urinary tract infection, site not specified; L03.114 Cellulitis of left upper limb; E87.1 Hypo-osmolality and hyponatremia; D64.9 Anemia, unspecified; F41.9 Anxiety disorder, unspecified; F32.9 Major depressive disorder, single episode, unspecified; I25.10 Atherosclerotic heart disease of native coronary artery without angina pectoris; E78.5 Hyperlipidemia, unspecified; E03.9 Hypothyroidism, unspecified; E66.9 Obesity, unspecified; E86.0 Dehydration; Z68.33 Body mass index [BMI] 33.0-33.9, adult; E11.649 Type 2 diabetes mellitus with hypoglycemia without coma; I11.0 Hypertensive heart disease with heart failure; M35.3 Polymyalgia rheumatica; R94.5 Abnormal results of liver function studies
CPT/HCPCS: 36415; 36416; 51701; 70450; 71045; 72170; 74177; 76770; 78227; 80048; 80053; 80074; 81003; 81015; 82550; 82553; 82570; 82728; 83605; 83880; 84300; 84484; 84550; 85025; 85610; 85652; 85730; 86038; 86140; 86225; 87081; 87086; 87430; 90471; 90670; 93005; 93010; 93306; 96361; 96374; 96375; 96376; A4216; A4353; A9541; G0009; G8978-GP-CN; G8979-GP-CK; G8987-GO-CM; G8988-GO-CJ; J0696; J1644; J1815; J1940; J1956; J2270; J2405; J2920; J7050; J7506; S0028

== ENCOUNTER 2020-10-22 08:26 | Inpatient (IN) | payer BC, MEDICARE ==
[2020-10-22] MEDS ORDERED: Ondansetron PF 4 MG/2 ML Vial ONE (09:04)
[2020-10-22] MEDS ORDERED: Morphine 2 MG/ML VIAL ONE (09:04)
--- NOTE | 2020-10-22 09:35 | RAD ---
EXAM: 4 views of the left knee HISTORY: Knee pain after fall COMPARISON: None FINDINGS: A moderate knee effusion is seen. There is no evidence of acute fracture or dislocation. Mi ld patellofemoral degenerative changes are seen. No soft tissue swelling is present. A surgical clip seen along the medial aspect of the knee. IMPRESSION: Moderate knee effusion without evidence of acute osseous abnormality.
--- NOTE | 2020-10-22 09:38 | RAD ---
EXAM: 4 views of the right elbow HISTORY: Elbow pain COMPARISON: None FINDINGS: There is slight prominence of the anterior fat pad without visualization of the posterior f at pad. This could suggest a small elbow effusion. There is no evidence of acute fracture or dislocation. No significant degenerative changes are seen. No soft tissue swelling is present. IMPRESSION: No evidence of acute osseous abnormality.
--- NOTE | 2020-10-22 09:44 | RAD ---
LEFT FOOT 3 VIEWS: HISTORY: Trauma and injury with pain. FINDINGS: Small spur from the posterior and plantar calcaneus. Tarsals appear intact. Mild degenerative change in the intertarsal joints and at the tarsometatarsal joints. Metatarsals appear intact. Mild DJD at the 1st MTP joint. Review of the phalanges shows deformity of the proximal phalanx of the 2nd toe. Findings suggest old fracture of this phalanx. No definite acute fracture is seen; however, recommend clinical correlati on regarding tenderness at this time. The phalanges are otherwise intact. IMPRESSION: 1. There are degenerative changes as described. 2. Deformity of the proximal phalanx of the 2nd toe suggesting old injury. Recommend clinical corre lation. POS: [facility]
[2020-10-22 09:47] LABS: #Basophils 0.1 thou/uL (0.0-0.2); #Eosinphils 0.4 thou/uL (0.0-0.7); #Lymphocytes 1.9 thou/uL (1.20-3.40); %Basophils 0.4 % (0.0-1.0); %Eosinophils 2.9 % (0.0-10.0); %Lymphocytes 14.4 % (21.0-51.0); %Monocytes 7.3 % (0.0-10.0); Hemoglobin 8.6 g/dL (12.0-16.0); Mean Corpuscular HGB CONC 31.2 g/dL (32.0-36.0); Mean Corpuscular Hemoglobin 26.7 pg (27.0-31.0); Mean Corpuscular Volume 85.6 fL (78.0-98.0); Mean Platelet Volume 6.9 fL (7.4-10.4); Platelet Count 375 thou/uL (130-400); RBC Distribution Width 15.4 % (11.5-14.5); Red Blood Cell (RBC) Count 3.21 mill/uL (4.20-5.40); White Blood Cell (WBC) Count 13.4 thou/uL (4.8-10.8)
[2020-10-22 10:01] LABS: ALT (SGPT) 16 U/L (8-55); AST (SGOT) 16 U/L (5-34); Albumin 3.2 g/dL (3.4-4.8); Alkaline Phosphatase 122 U/L (40-110); Anion Gap 16 mmol/L (10-20); BUN (Urea Nitrogen) 33 mg/dL (9.8-20.1); Bilirubin, Total 0.5 mg/dL (0.2-1.2); Calc. Creatinine Clearance 0 mL/min (70-130); Carbon Dioxide 20 mmol/L (23-31); Chloride 104 mmol/L (98-107); Globulin 4.3 g/dL (2.4-3.5); Glucose 280 mg/dL (80-115); Potassium 5.3 mmol/L (3.5-5.1); Protein, Total 7.5 g/dL (6.0-8.3); Sodium 135 mmol/L (136-145)
--- NOTE | 2020-10-22 13:13 | CT ---
CT LEFT KNEE WITHOUT CONTRAST: Date: 10/22/2020 HISTORY: Trauma. COMPARISON: Radiograph same date. FINDINGS: The distal femoral metaphysis and diaphysis are intact. No patellar fracture. Moderate patellofemoral osteophytes. There are moderate medial and lateral compartment osteophytes. Only seen on the coronal images is possible central articular weightbearing surface lateral tibial pl ateau cortical fracture, coronal images 35-41, without any significant cortical step-off.. No definite ACL or PCL tear. Volume loss of the medial meniscal body and posterior horn. No significa nt gutter extrusion of the lateral meniscus. Moderate vascular calcifications. Soft tissue swelling and skin thickening of the medial aspect of th e distal femur which may be postsurgical in nature. Small popliteal cyst. IMPRESSION: 1. Only seen on the coronal images is possible central articular weightbearing surface lateral tibia l plateau cortical fracture, coronal images 35-41, without any significant cortical step-off. 2. Large joint effusion. This may be sequelae of a medullary contusion which would only be apparent on a MRI versus internal derangement, although the ACL and PCL are felt to be at least partially inta ct. POS: [facility]
[2020-10-22] MEDS ORDERED: hydrALAZINE 20 MG/ML VIAL SLOW IVP PRN (16:34)
[2020-10-22] MEDS ORDERED: Dextrose 5% in Water 1,000 ML IV PRN (16:34)
[2020-10-22] MEDS ORDERED: Dextrose 50% Abboject 50 ML SYRINGE SLOW IVP PRN (16:34)
[2020-10-22] MEDS ORDERED: Ondansetron PF 4 MG/2 ML Vial IVP PRN (16:34)
[2020-10-22] MEDS ORDERED: Insulin Regular 300 UNITS/3 ML VIAL SC PRN ×2 (16:34)
[2020-10-22] MEDS ORDERED: Morphine 2 MG/ML VIAL SLOW IVP PRN (16:34)
[2020-10-22] MEDS ORDERED: traMADol HCl 50 MG TAB PO PRN ×2 (16:38)
[2020-10-22] MEDS ORDERED: Cyclobenzaprine 10 MG TAB PO PRN (16:38)
--- NOTE | 2020-10-22 17:14 | RAD ---
XR Tib Fib Lt Leg 2 View INDICATION: Left tibial pain after fall COMPARISON:None. FINDINGS: Bones: No acute fracture or subluxation is evident. Joints: No acute abnormality. Soft tissues: No radiopaque foreign body is evident. IMPRESSION: No acute osseous abnormality.
--- NOTE | 2020-10-22 17:15 | RAD ---
Chest AP view INDICATION: Shortness of breath COMPARISON: July 22, 2018 FINDINGS: Lungs: The lungs are clear Cardiac silhouette: Stable cardiomegaly. Interval midline sternotomy. Pulmonary vasculature: Normal Pleural spaces: No pleural effusion or pneumothorax is demonstrated. Upper abdomen: No abnormality seen. Osseous structures: No acute osseous abnormality. Additional findings: None. IMPRESSION: No acute cardiopulmonary abnormality.
--- NOTE | 2020-10-22 20:18 | HP ---
TRAUMA SURGEON: Dr. Hull. CONSULTING PHYSICIAN: Dr. Dean. HISTORY OF PRESENT ILLNESS: The patient is a 69-year-old female who presented to the emergency department via EMS after two mechanical falls in the past 24 hours. The patient reports last night she try to stand up from her bed and fell forward. She was able to eventually get up on her own. She reports today having difficulty getting off the couch this morning and ultimately slid forward again. She crawled over to her phone and called her daughter for help. She arrived via EMS. Upon evaluation, she was found to have a left lateral tibial plateau fracture with joint effusion. Orthopedic Surgery evaluated the patient and recommended non op management. The patient was evaluated by rehab, but an insurance authorization was needed before transport. Of note, the patient was recently admitted to the hospital and had a CABG by Dr. Marks two months ago. She was discharged to the rehab facility and ultimately went home. She had home physical therapy which has been discontinued. She does admit that her functional capacity has declined since physical therapy has stopped. She lives home independently. Her daughter lives down the street. She is still working. She reports to take 100 steps to get from her car to her office and that it is very difficult for her to complete the task. She denies any chest pain or shortness of breath. States that her pre CABG symptoms have not returned. She is currently on aspirin and Plavix. REVIEW OF SYSTEMS: All additional 10-point review of systems negative except as indicated above. PAST MEDICAL HISTORY: CAD, cardiac stents, diabetes, hypertension, CKD, recent CABG by Dr. Marks. PAST SURGICAL HISTORY: Cardiac stent placement, CABG, hysterectomy, right ankle surgery after fracture, left carpal tunnel surgery, bilateral shoulder surgeries. SOCIAL HISTORY: The patient denies tobacco, drug, or alcohol use. MEDICATIONS: The patient is unsure of all of her medications and uses [email or web address] [address] for her prescription. She does however know that she takes aspirin and Plavix. We will contact [email or web address] to get a med rec. ALLERGIES: NO KNOWN DRUG ALLERGIES. PHYSICAL EXAMINATION: VITAL SIGNS: Temperature 99.1, pulse 76, respirations 19, oxygen saturation 96% on room air, blood pressure 136/56. PRIMARY SURVEY: Airway intact. Adequate breath sounds bilaterally. 2+ pulses in bilateral radials, femorals, and DPs. GCS 15. Gross motor and sensation intact. No laceration or external bleeding. She does have swelling over the left knee. SECONDARY SURVEY: HEAD: Normocephalic and atraumatic. No gross palpable skull deformities. EYES: Pupils 3 to 2, equal, round, reactive to light bilaterally. ENT: No signs of trauma. C-SPINE: No step-offs or deformities. Nontender. C-collar not in place. CHEST: Nontender. No crepitus. No abrasions or ecchymosis noted. ABDOMEN: Soft, nontender, nondistended. PELVIS: Stable to palpation. Nontender. No abrasions or ecchymosis noted. RECTAL: Deferred. GENITOURINARY: Deferred. EXTREMITIES: She has swelling over the left knee. 2+ pulses in bilateral radials, femorals, and DPs. No abrasions or ecchymosis noted. BACK/SPINE: No step-offs or deformities or tenderness to palpation of the thoracic or lumbar spine. No abrasions or ecchymosis noted. NEUROLOGIC: 5/5 strength in bilateral gang leader, plantar flexion, dorsiflexion. Gross normal sensation x4 extremities. LABORATORY FINDINGS: White count 13.4, hemoglobin 8.6, hematocrit 27.5, platelets 375. Sodium 135, potassium 5.3, chloride 104, bicarb 20, BUN 33, creatinine 1.50, this is at her baseline. Glucose 280. Total bilirubin 0.5. AST 16, ALT 16, alkaline phosphatase 144. DIAGNOSTIC FINDINGS: X-ray of the right elbow demonstrates no evidence of acute osseous abnormalities. X-ray of the left knee demonstrates moderate knee effusion without evidence of acute osseous abnormalities. X-ray of the left foot demonstrates there are degenerative changes as described, deformity of the proximal phalanx of the 2nd toe suggesting old injury. Recommend clinical correlation. X-ray of the left tib-fib demonstrates no acute osseous abnormalities. Chest x- ray demonstrates no acute cardiopulmonary abnormalities. CT scan of the left lower extremity demonstrates only seen on coronal images as possible central articular weightbearing surface lateral tibial plateau cortical fracture. Coronal image 35 through 41 without any significant cortical step-off. Large joint effusion, this may be sequelae of a medullary contusion which would only be apparent on MRI versus internal derangement, although the ACL and PCL are felt to be at least partially intact. ASSESSMENT: 1. Status post mechanical fall from standing x2. 2. Left lateral tibial plateau fracture with joint effusion. 3. Physical decompensation, status post CABG two months ago. 4. History of recent CABG, CAD, cardiac stents, diabetes, hypertension, and CKD. PLAN: The patient will be admitted to the Trauma Service. She will go to the regular surgical nursing floor. Dr. Dean' team has evaluated the patient and recommended nonoperative management. We will follow their weightbearing instructions. She is to work with Physical and Occupational therapy tomorrow. We will ask case management to start the process of asking her insurance for placement at acute rehab facility. This patient was discussed with Dr. Hull before this dictation. Job ID: [id number] [id number]
[2020-10-22 20:29] VITALS: BMI 33.4
[2020-10-22] MEDS: Acetaminophen 500 MG TAB PO SCH (21:05)
[2020-10-22] MEDS: Gabapentin 100 MG CAP PO SCH (21:42)
[2020-10-22] MEDS: Senokot S 8.6-50 MG TAB PO SCH (21:43)
[2020-10-23] MEDS: Acetaminophen 500 MG TAB PO SCH ×4 (00:21→17:21)
[2020-10-23 05:35] LABS: Bacteria/HPF 4+ HPF (None Seen); Bilirubin Negative (Negative); Blood, Urine Negative (Negative); Clarity Turbid (Clear); Glucose, Urine (Dipstick) Normal (Negative); Ketone, Urine Negative (Negative); Leukocyte 500 Leu/uL (Negative); Nitrite Negative (Negative); Protein, Urine (Dipstick) 30 mg/dL (Neg-Trace); Specific Gravity, Urine 1.018 (1.002-1.036); Squamous Epithelial 0-3 HPF (0-3); Urobilinogen Normal mg/dL (Less than 2); WBC/HPF Greater than 50 HPF (0-3); pH, Urine 5.5 (5.0-9.0)
[2020-10-23] MEDS ORDERED: Levothyroxine Sodium 125 MCG TAB PO SCH (06:00)
[2020-10-23] MEDS ORDERED: predniSONE 20 MG TAB PO SCH (08:00)
[2020-10-23 08:10] LABS: #Eosinphils 0.9 thou/uL (0.0-0.7); #Lymphocytes 2.1 thou/uL (1.20-3.40); #Monocytes 0.8 thou/uL (0.11-0.59); #Neutrophils 6.9 thou/uL (1.40-6.50); %Basophils 0.1 % (0.0-1.0); %Eosinophils 8.5 % (0.0-10.0); %Lymphocytes 19.5 % (21.0-51.0); %Monocytes 7.2 % (0.0-10.0); %Neutrophils 64.6 % (42.0-75.0); Hemoglobin 7.9 g/dL (12.0-16.0); Mean Corpuscular HGB CONC 31.8 g/dL (32.0-36.0); Mean Corpuscular Hemoglobin 27.3 pg (27.0-31.0); Mean Corpuscular Volume 85.7 fL (78.0-98.0); Mean Platelet Volume 6.6 fL (7.4-10.4); Platelet Count 309 thou/uL (130-400); RBC Distribution Width 15.2 % (11.5-14.5); Red Blood Cell (RBC) Count 2.89 mill/uL (4.20-5.40); White Blood Cell (WBC) Count 10.7 thou/uL (4.8-10.8)
[2020-10-23] MEDS ORDERED: Cipro 250 MG TAB PO SCH ×2 (08:15→20:00)
[2020-10-23] MEDS: Gabapentin 100 MG CAP PO SCH ×3 (08:34→20:40)
[2020-10-23] MEDS: Senokot S 8.6-50 MG TAB PO SCH ×2 (08:35→20:41)
[2020-10-23 08:37] LABS: Anion Gap 13 mmol/L (10-20); BUN (Urea Nitrogen) 36 mg/dL (9.8-20.1); Calc. Creatinine Clearance 55 mL/min (70-130); Calcium 8.6 mg/dL (7.8-10.44); Carbon Dioxide 22 mmol/L (23-31); Chloride 107 mmol/L (98-107); Glucose 193 mg/dL (80-115); Magnesium 2.1 mg/dL (1.6-2.6); Phosphorus 3.2 mg/dL (2.3-4.7); Potassium 5.3 mmol/L (3.5-5.1); Sodium 137 mmol/L (136-145)
[2020-10-23] MEDS ORDERED: Lisinopril 2.5 MG TAB PO SCH (09:00)
[2020-10-23] MEDS ORDERED: Metoprolol Tartrate 25 MG TAB PO SCH (09:00)
[2020-10-23] MEDS ORDERED: Polyethylene Glycol 3350 17 GM Packet PO SCH (09:00)
[2020-10-23] MEDS: Insulin Regular 300 UNITS/3 ML VIAL SC PRN ×3 (10:40→20:42)
--- NOTE | 2020-10-23 12:44 | PRG ---
DATE OF SERVICE: 10/23/2020 SUBJECTIVE: The patient was seen this morning during rounds. She was sitting up in the chair with no signs of acute distress. She reported her pain is well controlled. She is tolerating her diet. She got up with physical therapy to sit in the chair. OBJECTIVE: VITAL SIGNS: Temperature 97.9, pulse 63, respirations 18, oxygen saturation 94% on room air, blood pressure 113/56. GENERAL: Elderly female, sitting up in a chair with no signs of acute distress. PULMONARY: Equal chest rise and fall. Clear breath sounds bilaterally. No signs of acute respiratory distress. CARDIAC: Regular rate and rhythm. GI: Abdomen is soft, nontender, nondistended. EXTREMITIES: 2+ pulses in all extremities. Gross motor and sensation are intact. No significant swelling noted. NEURO: GCS is 15. LABORATORY FINDINGS: White count 10.7, hemoglobin 7.9, hematocrit 24.8, platelets 309. Sodium 137, potassium 5.3, chloride 107, bicarb 22, BUN 36, creatinine 1.57, glucose 193, phosphorus 3.2, magnesium 2.1. DIAGNOSTIC FINDINGS: There are no new diagnostic findings to report. ASSESSMENT: 1. Status post mechanical fall from standing, on Plavix. 2. Left lateral tibial fracture with joint effusion, nonop. 3. Physical decompensation. 4. Urinary tract infection, uncomplicated. 5. Acute hyperkalemia. 6. History of recent CABG, cardiac stents, CAD, diabetes, hyperlipidemia, and chronic kidney disease. PLAN: Continue current diet and pain regimen. Increase insulin sliding scale. Add iron and vitamin C to medications. Restart Plavix tomorrow. Complete echo to evaluate decompensation and weakness. The patient is pending discharge to acute rehab facility. She will be ready for discharge once her echo was completed. Continue supportive care. This patient was seen and examined by Dr. Hull and myself this morning during rounds. Job ID: [id number]
[2020-10-23] MEDS ORDERED: Ferrous Sulfate 325 MG TAB PO SCH (17:00)
--- NOTE | 2020-10-23 19:11 | DIS ---
DATE OF ADMISSION: 10/22/2020 DATE OF DISCHARGE: 10/23/2020 ADMISSION DIAGNOSES: Mechanical fall from standing x2 on Plavix, left lateral tibial fracture with joint effusion, physical decompensation, urinary tract infection. DISCHARGE DIAGNOSES: Mechanical fall from standing x2 on Plavix, left lateral tibial fracture with joint effusion, physical decompensation, urinary tract infection. CONSULTING PHYSICIAN: Dr. Dean of Orthopedic Surgery. PROCEDURES: None. HOSPITAL COURSE: The patient is a 69-year-old female, presented to the emergency department after she had 2 mechanical falls at home. She was found to have a left lateral tibial fracture with joint effusion. She was seen by Orthopedic Surgery, who recommended nonoperative management. The patient is status post recent CABG and has had a recent decompensation after stopping physical therapy. She was also found to have a urinary tract infection. She received treatment for those. She was admitted for placement at acute rehab facility as she is not safe to go home. At the time of discharge, the patient's pain was well controlled. She was tolerating a diabetic, heart-healthy diet. She worked with Physical and Occupational Therapy and she was voiding without difficulties. DISCHARGE DISPOSITION: Acute rehab, [facility]. DISCHARGE CONDITION: Satisfactory. PHYSICAL EXAMINATION: VITAL SIGNS: Temperature 98.0, pulse 60, respirations 18, oxygen saturation 95% on room air, blood pressure 122/68. GENERAL: Well-appearing elderly female, sitting up in a chair with no signs of acute distress. PULMONARY: Equal chest rise and fall. No signs of acute respiratory distress. CARDIAC: Regular rate and rhythm. GASTROINTESTINAL: Abdomen is soft, nontender, nondistended. EXTREMITIES: 2+ pulses in all extremities. Gross motor and sensation intact. NEUROLOGIC: GCS is 15. DISCHARGE INSTRUCTIONS: The patient was discharged to acute rehab facility. Activity as tolerated. 50% weightbearing to the left lower extremity. Diabetic diet. Occupational and physical therapy. Incentive spirometry and a walker. DISCHARGE MEDICATIONS: Include; 1. Tylenol. 2. Vitamin C. 3. Lipitor. 4. Cipro x5 additional doses. 5. Plavix. 6. Flexeril. 7. Ferrous sulfate. 8. Gabapentin. 9. Synthroid. 10. Lisinopril. 11. Metoprolol. 12. Prednisone. 13. Senokot S. 14. Zoloft. 15. Tramadol. 16. Trulicity. 17. Lantus. 18. Actemra. FOLLOWUP APPOINTMENTS: The patient is to follow up with primary care physician in 14 days. She is also to follow up with Dr. Dean. No followup needed with Dr. Hull in [facility]. This is a summary of the patient's hospitalization. For full details, please see her medical record in its entirety. The patient was seen and evaluated by myself and Dr. Hull at the time of discharge. Job ID: [id number]
[2020-10-23 19:50] VITALS: BP 112/63
[2020-10-23 20:18] LABS: SARS-CoV-2 MS2 Positive; SARS-CoV-2 N Gene Negative; SARS-CoV-2 S Gene Negative; SARS-CoV-2 by NAA Not Detected (NotDetected); SARS-CoV-2 orf1ab Negative
[2020-10-23 20:29] VITALS: TEMP 98
[2020-10-23] MEDS ORDERED: Ascorbic Acid 500 mg Chewable Tablet PO SCH (21:00)
[2020-10-23] MEDS ORDERED: Atorvastatin Calcium 40 MG TAB PO SCH (21:00)
--- NOTE | 2020-10-24 08:15 | CON ---
DATE OF CONSULTATION: HISTORY OF PRESENT ILLNESS: We were asked by Trauma to see the patient. The patient fell and injured her left ankle, left knee. On CT, on images 35 through 41, there was a subtle finding of possible tibial plateau fracture with nondisplacement. She does have an effusion that was seen on x-ray and CT. No loss of consciousness. She said she has fallen before and hit her head and had no issues and she jokingly states she has had a hard head for sometime. She also has some elbow pain and some bruising to her chest, but she is able to move that left lower extremity fairly well. It is quite painful though, she is in a hinged knee brace, the ankle feels a little better. She is moving her upper extremities okay. It is quite obvious that she has taken a fall though, as she has some bruising to her face, chest, arms, and left lower extremity. Past medical history, surgical history, family history, social history, medications, allergies can all be gleaned from her H and P completed by Brianna OWEN. REVIEW OF SYSTEMS: Bodily aches and pains. Otherwise, no chest pain, shortness of breath. Rest of review of systems is negative. PHYSICAL EXAMINATION: GENERAL: Well-nourished female, up in a chair, currently in no acute distress. Speech clear. Answers questions appropriately. She is alert and oriented x3. HEENT: She does have some bruising to her face, but face is otherwise symmetric. Skull atraumatic. EXTREMITIES: Upper extremities; equal size, shape, symmetry. Normal bulk and tone. She does have some bruising to both forearms and to the elbows, left greater than right, but movements, sensations are intact. Lower extremities; left lower extremity is in a hinged knee brace. She is able to move both lower extremities fairly well, but again that left knee is quite painful and does have some palpable tenderness and swelling. Bilateral lower DP, PT pulses are intact. Ankle is a little tender on the left with passive and active range of motion, but again, sensations are intact. ASSESSMENT: 1. Left knee pain, status post fall. 2. CT images 35 through 41 show a nondisplaced tibial fracture. PLAN: I spoke with the patient. We will keep her 50% weightbearing, have her follow up in 2 to 4 weeks to see how she is doing. The plan is to send her to rehab and again she can increase her weightbearing as she tolerates, but we will keep her at 50% weightbearing as her pain is quite significant for her. Job ID: [id number]
[2020-10-24] MEDS ORDERED: Clopidogrel Bisulfate 75 MG TAB PO SCH (09:00)
== END 2020-10-23 20:55 | DRG 563 ==
LOC: ERS 08:26 → SURG B 16:34
PROVIDERS: ADMIT Surgery; ATTEND Surgery
DX: S82.142A Displaced bicondylar fracture of left tibia, initial encounter for closed fracture (principal); N39.0 Urinary tract infection, site not specified; Z20.828 Contact with and (suspected) exposure to other viral communicable diseases; Z23 Encounter for immunization; W18.39XA Other fall on same level, initial encounter; I25.10 Atherosclerotic heart disease of native coronary artery without angina pectoris; E11.22 Type 2 diabetes mellitus with diabetic chronic kidney disease; I12.9 Hypertensive chronic kidney disease with stage 1 through stage 4 chronic kidney disease, or unspecified chronic kidney disease; E87.5 Hyperkalemia; E78.5 Hyperlipidemia, unspecified; Z95.1 Presence of aortocoronary bypass graft; Z95.5 Presence of coronary angioplasty implant and graft; Z90.710 Acquired absence of both cervix and uterus; Z88.8 Allergy status to other drugs, medicaments and biological substances; Z91.040 Latex allergy status; Z79.4 Long term (current) use of insulin; Z79.899 Other long term (current) drug therapy; Z88.5 Allergy status to narcotic agent
CPT/HCPCS: 36415; 36416; 51701; 71045; 80048; 80053; 81003; 81015; 83735; 84100; 85025; 87077; 87086; 87186; 87635; 90471; 90732; 93306; 96374; 96375; G0009; J1815; J2270; J2405; J7512; U0003

== ENCOUNTER 2022-09-08 14:51 | Observation (INO) | payer MEDICARE, BC ==
[~2022-09-08 14:51] MED LIST: Iopamidol-370 76% 500 ML 1 ML ONE
[2022-09-08] MEDS ORDERED: hydrALAZINE 20 MG/ML VIAL ONE (15:47)
[2022-09-08 16:17] LABS: #Eosinphils 0.8 thou/uL (0.0-0.7); #Lymphocytes 2.8 thou/uL (1.20-3.40); #Monocytes 0.7 thou/uL (0.11-0.59); #Neutrophils 7.4 thou/uL (1.40-6.50); %Basophils 0.4 % (0.0-1.0); %Eosinophils 6.6 % (0.0-10.0); %Lymphocytes 23.8 % (21.0-51.0); %Monocytes 5.9 % (0.0-10.0); %Neutrophils 63.4 % (42.0-75.0); Hemoglobin 10.1 g/dL (12.0-16.0); Mean Corpuscular HGB CONC 31.9 g/dL (32.0-36.0); Mean Corpuscular Hemoglobin 28.6 pg (27.0-31.0); Mean Corpuscular Volume 89.5 fl (78.0-98.0); Mean Platelet Volume 7.7 fL (7.4-10.4); Platelet Count 229 thou/uL (130-400); RBC Distribution Width 14.1 % (11.5-14.5); Red Blood Cell (RBC) Count 3.53 mill/uL (4.20-5.40); White Blood Cell (WBC) Count 11.7 thou/uL (4.8-10.8)
[2022-09-08 16:49] LABS: ALT (SGPT) 18 U/L (8-55); AST (SGOT) 20 U/L (5-34); Acetaminophen Less than 10.0 mcg/mL (10.0-30.0); Albumin 3.4 g/dL (3.4-4.8); Alcohol Less than 10 mg/dL (Less than 10); Alkaline Phosphatase 124 U/L (40-110); Anion Gap 13 mmol/L (10-20); BUN (Urea Nitrogen) 34 mg/dL (9.8-20.1); Bilirubin, Total 0.3 mg/dL (0.2-1.2); CK (CPK) 56 U/L (29-168); Calc. Creatinine Clearance 0 mL/min (70-130); Calcium 9.3 mg/dL (7.8-10.44); Carbon Dioxide 21 mmol/L (23-31); Chloride 107 mmol/L (98-107); Estimated GFR 44; Globulin 3.8 g/dL (2.4-3.5); Glucose 213 mg/dL (80-115); Potassium 5.4 mmol/L (3.5-5.1); Protein, Total 7.2 g/dL (5.8-8.1); Salicylate Less than 8.0 mg/dL (15.0-30.0); Sodium 136 mmol/L (136-145)
[2022-09-08] MEDS ORDERED: Midazolam HCl 2 mg/2 ml Vial ONE (17:22)
[2022-09-08] MEDS ORDERED: Dextrose 5% in Water 1,000 ML IV PRN (17:53)
[2022-09-08] MEDS ORDERED: Dextrose 50% Abboject 50 ML SYRINGE SLOW IVP PRN (17:53)
[2022-09-08] MEDS ORDERED: Cipro 250 MG TAB PO SCH (20:00)
[2022-09-08 20:43] VITALS: BMI 33.4
[2022-09-08] MEDS: Atorvastatin Calcium 40 MG TAB PO SCH (21:22)
[2022-09-08] MEDS: Famotidine 20 MG TAB PO SCH (21:22)
[2022-09-08] MEDS: hydrALAZINE 20 MG/ML VIAL SLOW IVP PRN (21:23)
[2022-09-08 23:58] LABS: Anion Gap 13 mmol/L (10-20); BUN (Urea Nitrogen) 33 mg/dL (9.8-20.1); Calc. Creatinine Clearance 62 mL/min (70-130); Calcium 9.3 mg/dL (7.8-10.44); Carbon Dioxide 21 mmol/L (23-31); Chloride 105 mmol/L (98-107); Estimated GFR 43; Glucose 341 mg/dL (80-115); Potassium 5.1 mmol/L (3.5-5.1); Sodium 134 mmol/L (136-145)
[2022-09-09] MEDS: Acetaminophen 325 MG TAB PO PRN ×2 (01:35→16:03)
[2022-09-09 04:09] LABS: #Eosinphils 0.5 thou/uL (0.0-0.7); #Monocytes 0.6 thou/uL (0.11-0.59); #Neutrophils 6.7 thou/uL (1.40-6.50); %Basophils 0.1 % (0.0-1.0); %Eosinophils 5.1 % (0.0-10.0); %Lymphocytes 20.2 % (21.0-51.0); %Monocytes 6.4 % (0.0-10.0); %Neutrophils 68.3 % (42.0-75.0); Hemoglobin 9.1 g/dL (12.0-16.0); Mean Corpuscular HGB CONC 31.4 g/dL (32.0-36.0); Mean Corpuscular Hemoglobin 28.1 pg (27.0-31.0); Mean Corpuscular Volume 89.4 fl (78.0-98.0); Platelet Count 220 thou/uL (130-400); RBC Distribution Width 14.5 % (11.5-14.5); Red Blood Cell (RBC) Count 3.25 mill/uL (4.20-5.40); White Blood Cell (WBC) Count 9.8 thou/uL (4.8-10.8)
[2022-09-09 04:30] LABS: Anion Gap 11 mmol/L (10-20); BUN (Urea Nitrogen) 30 mg/dL (9.8-20.1); Calc. Creatinine Clearance 64 mL/min (70-130); Calcium 9.1 mg/dL (7.8-10.44); Carbon Dioxide 23 mmol/L (23-31); Chloride 105 mmol/L (98-107); Estimated GFR 45; Glucose 318 mg/dL (80-115); Potassium 4.7 mmol/L (3.5-5.1); Sodium 134 mmol/L (136-145)
[2022-09-09] MEDS: Levothyroxine Sodium 125 MCG TAB PO SCH (05:59)
[2022-09-09] MEDS: Clopidogrel Bisulfate 75 MG TAB PO SCH (09:44)
[2022-09-09] MEDS: Famotidine 20 MG TAB PO SCH ×2 (09:44→20:57)
[2022-09-09] MEDS: Lisinopril 2.5 MG TAB PO SCH (09:44)
[2022-09-09] MEDS: Metoprolol Tartrate 25 MG TAB PO SCH (09:44)
[2022-09-09] MEDS: predniSONE 20 MG TAB PO SCH (09:45)
[2022-09-09] MEDS: Cefepime 1 GM in Sodium Chloride 0.9% 100 ML IVPB SCH ×2 (11:28→21:00)
[2022-09-09] MEDS: HumaLOG 300 UNITS/3 ML VIAL SC PRN (13:23)
[2022-09-09] MEDS ORDERED: Labetalol HCl 100 MG/20 ML VIAL SLOW IVP PRN (16:03)
[2022-09-09] MEDS: HumaLOG 300 UNITS/3 ML VIAL SC SCH (18:04)
[2022-09-09] MEDS ORDERED: HumaLOG 300 UNITS/3 ML VIAL SC PRN (20:51)
[2022-09-09] MEDS: Atorvastatin Calcium 40 MG TAB PO SCH (20:57)
[2022-09-09] MEDS: hydrALAZINE 20 MG/ML VIAL SLOW IVP PRN (20:58)
[2022-09-09] MEDS ORDERED: Insulin Glargine 30 UNITS/0.3 ML VIAL SC SCH (21:00)
[2022-09-10] MEDS: Acetaminophen 325 MG TAB PO PRN (00:34)
[2022-09-10] MEDS ORDERED: traMADol HCl 50 MG TAB PO SCH (04:00)
[2022-09-10] MEDS: hydrALAZINE 20 MG/ML VIAL SLOW IVP PRN (04:17)
[2022-09-10 05:27] LABS: Anion Gap 10 mmol/L (10-20); BUN (Urea Nitrogen) 29 mg/dL (9.8-20.1); Calc. Creatinine Clearance 63 mL/min (70-130); Calcium 9.3 mg/dL (7.8-10.44); Carbon Dioxide 24 mmol/L (23-31); Chloride 106 mmol/L (98-107); Estimated GFR 43; Glucose 268 mg/dL (80-115); Potassium 4.2 mmol/L (3.5-5.1); Sodium 136 mmol/L (136-145)
[2022-09-10] MEDS: Levothyroxine Sodium 125 MCG TAB PO SCH (06:07)
[2022-09-10] MEDS: HumaLOG 300 UNITS/3 ML VIAL SC PRN ×2 (06:36→10:28)
[2022-09-10] MEDS: Clopidogrel Bisulfate 75 MG TAB PO SCH (09:54)
[2022-09-10] MEDS: predniSONE 20 MG TAB PO SCH (09:54)
[2022-09-10] MEDS: Famotidine 20 MG TAB PO SCH (09:54)
[2022-09-10] MEDS: Lisinopril 2.5 MG TAB PO SCH (09:55)
[2022-09-10] MEDS: Metoprolol Tartrate 25 MG TAB PO SCH (09:57)
[2022-09-10] MEDS: HumaLOG 300 UNITS/3 ML VIAL SC SCH (09:57)
[2022-09-10] MEDS: Cefepime 1 GM in Sodium Chloride 0.9% 100 ML IVPB SCH (09:57)
[2022-09-10 11:44] VITALS: BP 162/74; TEMP 98
== END 2022-09-10 13:10 | disposition home or self-care (01) ==
LOC: ERS 14:51 → 2SW 17:34
PROVIDERS: ADMIT Internal Medicine; ATTEND Internal Medicine
DX: I16.0 Hypertensive urgency (principal); R53.1 Weakness; E03.9 Hypothyroidism, unspecified; I12.9 Hypertensive chronic kidney disease with stage 1 through stage 4 chronic kidney disease, or unspecified chronic kidney disease; E11.22 Type 2 diabetes mellitus with diabetic chronic kidney disease; N18.9 Chronic kidney disease, unspecified; L08.9 Local infection of the skin and subcutaneous tissue, unspecified; E87.5 Hyperkalemia; I25.10 Atherosclerotic heart disease of native coronary artery without angina pectoris; I25.2 Old myocardial infarction; K44.9 Diaphragmatic hernia without obstruction or gangrene; Z87.891 Personal history of nicotine dependence; Z79.2 Long term (current) use of antibiotics; Z79.4 Long term (current) use of insulin; Z79.52 Long term (current) use of systemic steroids; Z79.82 Long term (current) use of aspirin; Z79.85 Long-term (current) use of injectable non-insulin antidiabetic drugs; Z79.890 Hormone replacement therapy; Z79.899 Other long term (current) drug therapy; Z88.4 Allergy status to anesthetic agent; Z91.048 Other nonmedicinal substance allergy status; Z95.5 Presence of coronary angioplasty implant and graft; Z20.822 Contact with and (suspected) exposure to COVID-19
CPT/HCPCS: 70450; 71045; 71275; 80048 ×3; 80307; 82140; 82550; 82962 ×3; 83690; 83880; 84484; 85025; 85379; 93005; 96365; 96366; 96375; 96376 ×3; G0378 ×4; U0003; U0005; 36416; 80053; 84443; 96374; J0360; J0692; J1815; J2250; J3490; J7512; Q9967

== ENCOUNTER 2022-10-05 13:53 | Outpatient (CLI) | payer MEDICARE, BC | END 2022-10-05 13:54 | disposition home or self-care (01) | LOC: BICRAD 13:53 | PROVIDERS: ATTEND Student in an Organized Health Care Education/Training Program | DX: M25.511 Pain in right shoulder (principal) ==

== ENCOUNTER 2023-04-30 11:28 | Inpatient (IN) | payer MEDICARE, BC ==
[2023-04-30 12:28] LABS: Hemoglobin 10.1 g/dL (12.0-16.0); Mean Corpuscular HGB CONC 30.9 g/dL (32.0-36.0); Mean Corpuscular Hemoglobin 27.6 pg (27.0-31.0); Mean Corpuscular Volume 89.3 fl (78.0-98.0); Mean Platelet Volume 9.2 fL (7.4-10.4); Platelet Count 266 10x3/uL (130-400); RBC Distribution Width 14.6 % (11.5-14.5); Red Blood Cell (RBC) Count 3.66 mill/uL (4.20-5.40); White Blood Cell (WBC) Count 17.7 10x3/uL (4.8-10.8)
[2023-04-30 12:29] LABS: Delete Auto Diff?? YES; Manual Diff?? YES
[2023-04-30 12:38] LABS: ALT (SGPT) 30 U/L (8-55); AST (SGOT) 30 U/L (5-34); Albumin 3.4 g/dL (3.4-4.8); Alkaline Phosphatase 119 U/L (40-110); Anion Gap 14 mmol/L (10-20); BUN (Urea Nitrogen) 58 mg/dL (9.8-20.1); Bilirubin, Total 0.3 mg/dL (0.2-1.2); Calc. Creatinine Clearance 0 mL/min (70-130); Calcium 9.1 mg/dL (7.8-10.44); Carbon Dioxide 21 mmol/L (23-31); Chloride 106 mmol/L (98-107); Estimated GFR 19; Globulin 3.6 g/dL (2.4-3.5); Glucose 119 mg/dL (80-115); Potassium 3.8 mmol/L (3.5-5.1); Sodium 137 mmol/L (136-145)
[2023-04-30 12:50] LABS: Band 24 % (5-11); CellaVision Operator ID LAB.MJL; Lymphocytes 6 % (21-51); Metamyelocyte 1 % (0-0); Monocytes 3 % (0-10); Neutrophil 66 % (42-75); Ovalocytes SLIGHT = 2-5 cells HPF (0-1); Platelet Adequacy Comment Platelets Normal; Polychromasia SLIGHT = 2-3 cells HPF (0-2); Total Cell Count 100
[2023-04-30] MEDS ORDERED: Cefepime 2 GM VIAL ONE (13:44)
[2023-04-30] MEDS ORDERED: Acetaminophen 325 MG TAB ONE (13:45)
[2023-04-30 13:53] LABS: Bacteria/HPF 4+ HPF (None Seen); Bilirubin Negative (Negative); Blood, Urine 2+ (Negative); CAUTI Indications for Culture Fever or rigors; Clarity Turbid (Clear); Glucose, Urine (Dipstick) 100 mg/dL (Negative); Ketone, Urine Negative (Negative); Leukocyte 500 Leu/uL (Negative); Nitrite Negative (Negative); Protein, Urine (Dipstick) 70 mg/dL (Neg-Trace); Specific Gravity, Urine 1.015 (1.002-1.036); Squamous Epithelial 0-3 HPF (0-3); Urobilinogen Normal mg/dL (Less than 2); WBC/HPF Greater than 50 HPF (0-3); pH, Urine 5.5 (5.0-9.0)
[2023-04-30 13:59] LABS: Urine Culture Reflex Yes Yes
[2023-04-30] MEDS ORDERED: VANCOMYCIN 2 GRAM/500 ML BAG 2 GM in Premix Bag 1 BAG IVPB SCH (14:15)
[2023-04-30] MEDS ORDERED: Ondansetron ODT 4 MG TAB PO PRN (15:30)
[2023-04-30] MEDS ORDERED: Acetaminophen 650 MG Suppository PR PRN (15:30)
[2023-04-30] MEDS ORDERED: Dextrose 50% Abboject 50 ML SYRINGE SLOW IVP PRN (15:35)
[2023-04-30] MEDS ORDERED: Glucagon 1 MG/ML KIT IM PRN (15:35)
[2023-04-30] MEDS ORDERED: Dextrose 5% in Water 1,000 ML IV PRN (15:35)
[2023-04-30] MEDS ORDERED: cefTRIAXone\\ROCEPHIN 1 GM in Sodium Chloride 0.9% 100 ML IVPB SCH (16:00)
[2023-04-30 16:09] LABS: Lactic Acid 1.3 mmol/L (0.5-2.2)
[2023-04-30 17:29] VITALS: BMI 33.4
[2023-04-30] MEDS: Sodium Chloride 0.9% 1,000 ML IV SCH (17:55)
[2023-04-30] MEDS: Acetaminophen 325 MG TAB PO PRN (20:33)
[2023-04-30] MEDS: Heparin 5,000 UNITS/ML VIAL SC SCH (20:33)
[2023-04-30] MEDS: HumaLOG 300 UNITS/3 ML VIAL SC PRN (21:58)
[2023-05-01] MEDS: Sodium Chloride 0.9% 1,000 ML IV SCH ×3 (00:10→18:15)
[2023-05-01] MEDS ORDERED: Famotidine 20 MG TAB PO SCH (00:15)
[2023-05-01] MEDS: Ondansetron PF 4 MG/2 ML Vial IVP PRN ×2 (02:48→20:30)
[2023-05-01] MEDS: Calcium Carbonate 500 MG ChewTAB PO PRN ×2 (02:56→21:41)
[2023-05-01] MEDS: HumaLOG 300 UNITS/3 ML VIAL SC PRN ×2 (05:24→21:41)
[2023-05-01] MEDS: Levothyroxine Sodium 125 MCG TAB PO SCH (05:24)
[2023-05-01 08:03] LABS: #Basophils 0.1 thou/uL (0.0-0.2); #Eosinphils 0.1 thou/uL (0.0-0.7); #Neutrophils 13.5 thou/uL (1.40-6.50); %Basophils 0.3 % (0.0-1.0); %Eosinophils 0.5 % (0.0-10.0); %Lymphocytes 11.1 % (21.0-51.0); %Monocytes 5.8 % (0.0-10.0); %Neutrophils 81.8 % (42.0-75.0); Hemoglobin 9.7 g/dL (12.0-16.0); Mean Corpuscular HGB CONC 30.7 g/dL (32.0-36.0); Mean Corpuscular Hemoglobin 27.6 pg (27.0-31.0); Mean Corpuscular Volume 89.8 fl (78.0-98.0); Mean Platelet Volume 9.2 fL (7.4-10.4); Platelet Count 235 10x3/uL (130-400); RBC Distribution Width 14.8 % (11.5-14.5); Red Blood Cell (RBC) Count 3.52 mill/uL (4.20-5.40); White Blood Cell (WBC) Count 16.5 10x3/uL (4.8-10.8)
[2023-05-01 08:25] LABS: Anion Gap 10 mmol/L (10-20); BUN (Urea Nitrogen) 46 mg/dL (9.8-20.1); Calc. Creatinine Clearance 49 mL/min (70-130); Calcium 8.3 mg/dL (7.8-10.44); Carbon Dioxide 19 mmol/L (23-31); Chloride 110 mmol/L (98-107); Estimated GFR 32; Glucose 215 mg/dL (80-115); Potassium 4.4 mmol/L (3.5-5.1); Sodium 135 mmol/L (136-145)
[2023-05-01] MEDS: Heparin 5,000 UNITS/ML VIAL SC SCH ×2 (08:48→20:30)
[2023-05-01] MEDS ORDERED: Cefepime 1 GM in Sodium Chloride 0.9% 100 ML IVPB SCH (09:00)
[2023-05-01] MEDS: Cefepime 1 GM in Sodium Chloride 0.9% 100 ML IVPB SCH (20:28)
[2023-05-01] MEDS: Famotidine 20 MG TAB PO SCH (20:29)
[2023-05-02] MEDS: Sodium Chloride 0.9% 1,000 ML IV SCH ×5 (02:11→22:54)
[2023-05-02] MEDS: Acetaminophen 325 MG TAB PO PRN ×2 (05:08→19:08)
[2023-05-02] MEDS: Levothyroxine Sodium 125 MCG TAB PO SCH (05:08)
[2023-05-02 06:47] LABS: #Eosinphils 0.1 thou/uL (0.0-0.7); #Monocytes 0.9 thou/uL (0.11-0.59); #Neutrophils 8.9 thou/uL (1.40-6.50); %Basophils 0.2 % (0.0-1.0); %Eosinophils 1.1 % (0.0-10.0); %Lymphocytes 14.6 % (21.0-51.0); %Monocytes 7.5 % (0.0-10.0); %Neutrophils 76.2 % (42.0-75.0); Hemoglobin 8.5 g/dL (12.0-16.0); Mean Corpuscular Hemoglobin 27.8 pg (27.0-31.0); Mean Corpuscular Volume 89.5 fl (78.0-98.0); Mean Platelet Volume 9.4 fL (7.4-10.4); Platelet Count 194 10x3/uL (130-400); RBC Distribution Width 14.6 % (11.5-14.5); Red Blood Cell (RBC) Count 3.06 mill/uL (4.20-5.40); White Blood Cell (WBC) Count 11.6 10x3/uL (4.8-10.8)
[2023-05-02 07:10] LABS: Anion Gap 11 mmol/L (10-20); BUN (Urea Nitrogen) 29 mg/dL (9.8-20.1); Calc. Creatinine Clearance 53 mL/min (70-130); Calcium 8.2 mg/dL (7.8-10.44); Carbon Dioxide 19 mmol/L (23-31); Chloride 109 mmol/L (98-107); Estimated GFR 36; Glucose 158 mg/dL (80-115); Potassium 4.2 mmol/L (3.5-5.1); Sodium 135 mmol/L (136-145)
[2023-05-02] MEDS: Heparin 5,000 UNITS/ML VIAL SC SCH ×2 (08:40→20:26)
[2023-05-02] MEDS: Cefepime 1 GM in Sodium Chloride 0.9% 100 ML IVPB SCH ×2 (08:40→20:24)
[2023-05-02] MEDS: HumaLOG 300 UNITS/3 ML VIAL SC PRN ×2 (19:05→21:25)
[2023-05-02] MEDS: Famotidine 20 MG TAB PO SCH (20:26)
[2023-05-03] MEDS: Acetaminophen 325 MG TAB PO PRN ×3 (01:48→21:37)
[2023-05-03] MEDS: Levothyroxine Sodium 125 MCG TAB PO SCH (05:42)
[2023-05-03] MEDS: Cefepime 1 GM in Sodium Chloride 0.9% 100 ML IVPB SCH ×2 (08:02→21:32)
[2023-05-03] MEDS: Heparin 5,000 UNITS/ML VIAL SC SCH ×2 (08:02→21:34)
[2023-05-03] MEDS: Sodium Chloride 0.9% 1,000 ML IV SCH ×3 (08:03→18:26)
[2023-05-03] MEDS ORDERED: HYDROcodone/Acetaminophen 7.5/325 mg Tablet PO PRN (08:44)
[2023-05-03 09:34] LABS: #Eosinphils 0.3 thou/uL (0.0-0.7); #Monocytes 0.7 thou/uL (0.11-0.59); #Neutrophils 5.7 thou/uL (1.40-6.50); %Basophils 0.1 % (0.0-1.0); %Eosinophils 3.4 % (0.0-10.0); %Lymphocytes 18.2 % (21.0-51.0); %Monocytes 8.2 % (0.0-10.0); %Neutrophils 69.6 % (42.0-75.0); Hemoglobin 8.5 g/dL (12.0-16.0); Mean Corpuscular HGB CONC 31.1 g/dL (32.0-36.0); Mean Corpuscular Hemoglobin 27.6 pg (27.0-31.0); Mean Corpuscular Volume 88.6 fl (78.0-98.0); Mean Platelet Volume 9.7 fL (7.4-10.4); Platelet Count 198 10x3/uL (130-400); RBC Distribution Width 14.6 % (11.5-14.5); Red Blood Cell (RBC) Count 3.08 mill/uL (4.20-5.40); White Blood Cell (WBC) Count 8.2 10x3/uL (4.8-10.8)
[2023-05-03 09:54] LABS: Anion Gap 10 mmol/L (10-20); BUN (Urea Nitrogen) 21 mg/dL (9.8-20.1); Calc. Creatinine Clearance 65 mL/min (70-130); Calcium 8.3 mg/dL (7.8-10.44); Carbon Dioxide 19 mmol/L (23-31); Chloride 110 mmol/L (98-107); Estimated GFR 46; Glucose 196 mg/dL (80-115); Potassium 4.2 mmol/L (3.5-5.1); Sodium 135 mmol/L (136-145)
[2023-05-03] MEDS: HumaLOG 300 UNITS/3 ML VIAL SC PRN (18:27)
[2023-05-03] MEDS: Famotidine 20 MG TAB PO SCH (21:36)
[2023-05-04] MEDS: Levothyroxine Sodium 125 MCG TAB PO SCH ×3 (05:46→06:31)
[2023-05-04] MEDS: Sodium Chloride 0.9% 1,000 ML IV SCH (05:47)
[2023-05-04] MEDS: Acetaminophen 325 MG TAB PO PRN (05:56)
[2023-05-04 06:32] LABS: #Eosinphils 0.3 thou/uL (0.0-0.7); #Monocytes 0.9 thou/uL (0.11-0.59); #Neutrophils 6.6 thou/uL (1.40-6.50); %Basophils 0.2 % (0.0-1.0); %Eosinophils 3.5 % (0.0-10.0); %Lymphocytes 17.7 % (21.0-51.0); %Monocytes 9.1 % (0.0-10.0); %Neutrophils 69.1 % (42.0-75.0); Hemoglobin 8.9 g/dL (12.0-16.0); Mean Corpuscular HGB CONC 30.9 g/dL (32.0-36.0); Mean Corpuscular Hemoglobin 26.9 pg (27.0-31.0); Mean Platelet Volume 9.6 fL (7.4-10.4); Platelet Count 222 10x3/uL (130-400); RBC Distribution Width 14.4 % (11.5-14.5); Red Blood Cell (RBC) Count 3.31 mill/uL (4.20-5.40); White Blood Cell (WBC) Count 9.5 10x3/uL (4.8-10.8)
[2023-05-04 06:52] LABS: Anion Gap 12 mmol/L (10-20); BUN (Urea Nitrogen) 16 mg/dL (9.8-20.1); Calc. Creatinine Clearance 76 mL/min (70-130); Calcium 8.8 mg/dL (7.8-10.44); Carbon Dioxide 20 mmol/L (23-31); Chloride 109 mmol/L (98-107); Estimated GFR 55; Glucose 164 mg/dL (80-115); Potassium 3.9 mmol/L (3.5-5.1); Sodium 137 mmol/L (136-145)
[2023-05-04 08:49] VITALS: BP 153/76; TEMP 98.7
[2023-05-04] MEDS ORDERED: Sertraline 100 MG TAB PO SCH (09:00)
[2023-05-04] MEDS ORDERED: Insulin Glargine 30 UNITS/0.3 ML VIAL SC SCH (09:00)
[2023-05-04] MEDS ORDERED: Losartan 25 MG TAB PO SCH (09:00)
[2023-05-04] MEDS ORDERED: Metoprolol Tartrate 25 MG TAB PO SCH (09:00)
[2023-05-04] MEDS ORDERED: Non-Formulary Item 1 EACH (Insulin Glargine,Hum.Rec.Anlog [Toujeo Solostar] 300 UNIT/ML I SQ SCH (09:00)
[2023-05-04] MEDS ORDERED: Amlodipine 10 MG TAB PO SCH (09:00)
[2023-05-04] MEDS ORDERED: Gabapentin 300 MG CAP PO SCH (09:00)
[2023-05-04] MEDS ORDERED: Aspirin 81 mg Enteric Coated Tablet PO SCH (09:00)
[2023-05-04] MEDS ORDERED: Non-Formulary Item 1 EACH (Atorvastatin Calcium [Atorvastatin Calcium] 80 MG Tablet) PO SCH (09:00)
[2023-05-04] MEDS: Cefepime 1 GM in Sodium Chloride 0.9% 100 ML IVPB SCH (09:10)
[2023-05-04] MEDS: Heparin 5,000 UNITS/ML VIAL SC SCH (09:11)
[2023-05-04] MEDS ORDERED: diphenhydrAMINE 25 MG CAP PO PRN (09:50)
[2023-05-04] MEDS ORDERED: Atorvastatin Calcium 40 MG TAB PO SCH (21:00)
== END 2023-05-04 13:28 | disposition home or self-care (01) | DRG 872 ==
LOC: ERS 11:28 → T4-B 15:25
PROVIDERS: ADMIT Internal Medicine; ATTEND Internal Medicine
DX: A41.51 Sepsis due to Escherichia coli [E. coli] (principal); N17.9 Acute kidney failure, unspecified; N12 Tubulo-interstitial nephritis, not specified as acute or chronic; I10 Essential (primary) hypertension; E78.5 Hyperlipidemia, unspecified; E03.9 Hypothyroidism, unspecified; M35.3 Polymyalgia rheumatica; R65.20 Severe sepsis without septic shock; L97.519 Non-pressure chronic ulcer of other part of right foot with unspecified severity; E11.621 Type 2 diabetes mellitus with foot ulcer; I25.10 Atherosclerotic heart disease of native coronary artery without angina pectoris; Z95.1 Presence of aortocoronary bypass graft; Z95.5 Presence of coronary angioplasty implant and graft; Z91.048 Other nonmedicinal substance allergy status; Z88.4 Allergy status to anesthetic agent; Z79.899 Other long term (current) drug therapy; Z79.82 Long term (current) use of aspirin; Z79.890 Hormone replacement therapy; Z79.4 Long term (current) use of insulin; Z90.710 Acquired absence of both cervix and uterus; Z98.890 Other specified postprocedural states; Z98.51 Tubal ligation status; Z87.891 Personal history of nicotine dependence; I25.2 Old myocardial infarction; Z89.421 Acquired absence of other right toe(s)
CPT/HCPCS: 36415; 36416; 51701; 71045; 74176; 76770; 80048; 80053; 81001; 83605; 85025; 87040; 87077; 87086; 87149; 87186; 96365; 96367; 97139; J0692; J1644; J1815; J2405; J3370; J3490; J7050; Q0162

== ENCOUNTER 2024-01-10 09:36 | Emergency (ER) | payer MEDICARE ==
[2024-01-10] MEDS ORDERED: Vancomycin 1 GM/200 ML (FROZEN) BAG ONE (10:32)
[2024-01-10] MEDS ORDERED: Activase 2 MG VIAL CATH SCH (10:45)
[2024-01-10] MEDS ORDERED: Sterile Water 10 ML VIAL IVP SCH (10:45)
== END 2024-01-10 13:21 ==
LOC: ERS 09:36
DX: T82.594A Other mechanical complication of infusion catheter, initial encounter (principal); E11.9 Type 2 diabetes mellitus without complications; Z87.891 Personal history of nicotine dependence; Z47.2 Encounter for removal of internal fixation device
CPT/HCPCS: 96365; 96375; 99283; J2997; J3370; 36415; 80202; 85025; 86140

== ENCOUNTER 2024-01-12 14:25 | Emergency (ER) | payer MEDICARE ==
[2024-01-12] MEDS ORDERED: Activase 2 MG VIAL CATH SCH (15:30)
[2024-01-12] MEDS ORDERED: Sterile Water 10 ML VIAL IVP SCH (15:30)
[2024-01-12] MEDS ORDERED: Vancomycin 1 GM/200 ML (FROZEN) BAG ONE (17:06)
== END 2024-01-12 22:14 ==
LOC: ERS 14:25
DX: T82.594A Other mechanical complication of infusion catheter, initial encounter (principal); E11.9 Type 2 diabetes mellitus without complications; Z87.891 Personal history of nicotine dependence
CPT/HCPCS: 71045; 96365; 96366; 96375; 99283; J2997; J3370

== ENCOUNTER 2025-07-14 07:55 | Inpatient (IN) | payer MEDICARE ==
[2025-07-14] MEDS ORDERED: Acetaminophen 500 MG TAB ONE ×2 (08:24→12:15)
[2025-07-14 10:59] LABS: #Basophils 0.04 10x3/uL (0.0-0.2); #Eosinophils 0.29 10x3/uL (0.0-0.7); #Monocytes 0.80 10x3/uL (0.11-0.59); #Neutrophils 9.51 10x3/uL (1.40-6.50); %Basophils 0.3 % (0.0-1.0); %Eosinophils 2.2 % (0.0-10.0); %Lymphocytes 19.5 % (21.0-51.0); %Monocytes 6.0 % (0.0-10.0); %Neutrophils 71.2 % (42.0-75.0); Hematocrit 36.9 % (36.0-47.0); Hemoglobin 10.8 g/dL (12.0-16.0); Mean Corpuscular Hemoglobin 24.9 pg (27.0-31.0); Mean Corpuscular Volume 85.0 fL (78.0-98.0); Platelet Count 305 10x3/uL (130-400); Red Blood Cell (RBC) Count 4.34 mill/uL (4.20-5.40); White Blood Cell (WBC) Count 13.35 10x3/uL (4.8-10.8)
[2025-07-14 11:13] LABS: INR-International Normal Ratio 1.1; PTT 26.9 sec (22.9-36.1); Prothrombin Time 13.9 sec (12.0-14.7)
[2025-07-14 11:24] LABS: ALT (SGPT) 27 U/L (Less than 34); AST (SGOT) 28 U/L (11-34); Albumin 3.2 g/dL (3.1-4.5); Alkaline Phosphatase 94 U/L (40-110); Anion Gap 14 mmol/L (10-20); BUN (Urea Nitrogen) 44 mg/dL (9.8-20.1); Bilirubin, Total 0.2 mg/dL (0.3-1.2); Calc. Creatinine Clearance 0 mL/min (70-130); Calcium 9.2 mg/dL (7.8-10.44); Carbon Dioxide 17 mmol/L (23-31); Chloride 114 mmol/L (98-107); Globulin 4.2 g/dL (2.4-3.5); Glucose 80 mg/dL (83-110); Potassium 5.2 mmol/L (3.5-5.1); Sodium 140 mmol/L (136-145)
[2025-07-14] MEDS ORDERED: Glucagon 1 MG/ML KIT IM PRN (12:05)
[2025-07-14] MEDS ORDERED: Dextrose 50% Abboject 50 ML SYRINGE SLOW IVP PRN (12:05)
[2025-07-14] MEDS ORDERED: Methocarbamol 500 MG TAB PO PRN (12:05)
[2025-07-14 12:11] LABS: Bacteria/HPF None Seen HPF (None Seen); CAUTI Indications for Culture Dysuria,urgency,freq; Glucose, Urine (Dipstick) Normal (Negative); Leukocyte 25 Leu/uL (Negative); Protein, Urine (Dipstick) 10 mg/dL (Neg-Trace); RBC/HPF 0-3 HPF (0-3); Specific Gravity, Urine 1.009 (1.002-1.036)
[2025-07-14 12:13] LABS: Urine Culture Reflex Yes Yes
[2025-07-14 14:58] VITALS: BMI 29.0
[2025-07-14] MEDS: hydrALAZINE 20 MG/ML VIAL SLOW IVP PRN (17:27)
[2025-07-14] MEDS: cefTRIAXone\\ROCEPHIN 1 GM in Sodium Chloride 0.9% 100 ML IVPB SCH (17:27)
[2025-07-14] MEDS: Insulin Glargine 30 UNITS/0.3 ML VIAL SC SCH (20:59)
[2025-07-14] MEDS: HYDROcodone/Acetaminophen 5/325 mg Tablet PO PRN (21:00)
[2025-07-14] MEDS: TETANUS AND DIPHTHERIA TOX/PF 0.5 ML DISP.SYRIN IM SCH (21:52)
[2025-07-15 04:24] LABS: #Basophils Less than 0.03 10x3/uL (0.0-0.2); #Eosinophils 0.45 10x3/uL (0.0-0.7); #Monocytes 0.56 10x3/uL (0.11-0.59); #Neutrophils 6.16 10x3/uL (1.40-6.50); %Basophils 0.2 % (0.0-1.0); %Eosinophils 5.1 % (0.0-10.0); %Lymphocytes 19.0 % (21.0-51.0); %Monocytes 6.3 % (0.0-10.0); %Neutrophils 69.1 % (42.0-75.0); Hematocrit 32.9 % (36.0-47.0); Hemoglobin 9.4 g/dL (12.0-16.0); Mean Corpuscular Hemoglobin 24.2 pg (27.0-31.0); Mean Corpuscular Volume 84.8 fL (78.0-98.0); Platelet Count 257 10x3/uL (130-400); Red Blood Cell (RBC) Count 3.88 mill/uL (4.20-5.40); White Blood Cell (WBC) Count 8.91 10x3/uL (4.8-10.8)
[2025-07-15 04:31] LABS: Anion Gap 12 mmol/L (10-20); BUN (Urea Nitrogen) 37 mg/dL (9.8-20.1); Calc. Creatinine Clearance 39 mL/min (70-130); Calcium 8.2 mg/dL (7.8-10.44); Carbon Dioxide 23 mmol/L (23-31); Chloride 108 mmol/L (98-107); Glucose 128 mg/dL (83-110); Potassium 5.3 mmol/L (3.5-5.1); Sodium 138 mmol/L (136-145)
[2025-07-15] MEDS: Acetaminophen 325 MG TAB PO PRN (04:49)
[2025-07-15] MEDS: LOKELMA 10 GM PACKET PO SCH ×2 (09:46→21:58)
[2025-07-15] MEDS: Ondansetron PF 4 MG/2 ML Vial IVP PRN (09:51)
[2025-07-15] MEDS ORDERED: Rocuronium Bromide 10 MG/ML (10ML VIAL) ONE (14:14)
[2025-07-15] MEDS ORDERED: PROPOFOL 20 ML ONE (14:14)
[2025-07-15] MEDS: TETANUS, DIPHTHERIA TOX,ADULT (TDVAX) 0.5 ML VIAL IM ONE (15:22)
[2025-07-15] MEDS ORDERED: Ondansetron PF 4 MG/2 ML Vial ONE (15:46)
[2025-07-15] MEDS ORDERED: fentaNYL PF 100 MCG/2 ML SYRINGE ONE (15:46)
[2025-07-15] MEDS ORDERED: CEFAZOLIN 1 GM VIAL ONE (16:12)
[2025-07-15] MEDS ORDERED: Lidocaine 1% PF 5 ML VIAL ONE (16:15)
[2025-07-15] MEDS ORDERED: Glycopyrrolate 0.2 MG/ML 5 ML SYRINGE ONE (16:49)
[2025-07-15] MEDS ORDERED: PHENYLEPHRINE-NS 100 MCG/ML 10 ML SYRINGE ONE (16:49)
[2025-07-15] MEDS ORDERED: NEOSTIGMINE 3 MG/3 ML SYRINGE ONE (16:49)
[2025-07-15 20:13] LABS: Anion Gap 20 mmol/L (10-20); BUN (Urea Nitrogen) 33 mg/dL (9.8-20.1); Calc. Creatinine Clearance 34 mL/min (70-130); Calcium 8.4 mg/dL (7.8-10.44); Carbon Dioxide 23 mmol/L (23-31); Chloride 100 mmol/L (98-107); Glucose 187 mg/dL (83-110); Potassium 5.6 mmol/L (3.5-5.1); Sodium 137 mmol/L (136-145)
[2025-07-16 04:29] LABS: #Basophils 0.03 10x3/uL (0.0-0.2); #Eosinophils 0.03 10x3/uL (0.0-0.7); #Monocytes 0.71 10x3/uL (0.11-0.59); #Neutrophils 11.21 10x3/uL (1.40-6.50); %Basophils 0.2 % (0.0-1.0); %Eosinophils 0.2 % (0.0-10.0); %Lymphocytes 7.2 % (21.0-51.0); %Monocytes 5.5 % (0.0-10.0); %Neutrophils 86.4 % (42.0-75.0); Hematocrit 35.5 % (36.0-47.0); Hemoglobin 10.1 g/dL (12.0-16.0); Mean Corpuscular Hemoglobin 24.6 pg (27.0-31.0); Mean Corpuscular Volume 86.4 fL (78.0-98.0); Platelet Count 245 10x3/uL (130-400); Red Blood Cell (RBC) Count 4.11 mill/uL (4.20-5.40); White Blood Cell (WBC) Count 12.98 10x3/uL (4.8-10.8)
[2025-07-16 04:43] LABS: Anion Gap 15 mmol/L (10-20); BUN (Urea Nitrogen) 35 mg/dL (9.8-20.1); Calc. Creatinine Clearance 34 mL/min (70-130); Calcium 8.4 mg/dL (7.8-10.44); Carbon Dioxide 20 mmol/L (23-31); Chloride 103 mmol/L (98-107); Glucose 291 mg/dL (83-110); Potassium 6.0 mmol/L (3.5-5.1); Sodium 132 mmol/L (136-145)
[2025-07-16] MEDS: LOKELMA 10 GM PACKET PO SCH (06:30)
[2025-07-16] MEDS: Dextrose 50% Abboject 50 ML SYRINGE SLOW IVP SCH (06:30)
[2025-07-16] MEDS: Calcium Gluc 4.6 MEQ/10 ML (100 MG/ML) SLOW IVP SCH (06:30)
[2025-07-16] MEDS: Folic Acid 1 MG TAB PO SCH (08:51)
[2025-07-16] MEDS: Lactulose 20 GM (30 mL) UDCUP PO SCH (08:51)
[2025-07-16] MEDS: Aspirin 81 mg Enteric Coated Tablet PO SCH (08:52)
[2025-07-16] MEDS: Ferrous Sulfate 325 MG TAB PO SCH (08:52)
[2025-07-16] MEDS: Sertraline 100 MG TAB PO SCH (08:52)
[2025-07-16 09:39] LABS: Anion Gap 15 mmol/L (10-20); BUN (Urea Nitrogen) 36 mg/dL (9.8-20.1); Calc. Creatinine Clearance 33 mL/min (70-130); Calcium 8.8 mg/dL (7.8-10.44); Carbon Dioxide 24 mmol/L (23-31); Chloride 100 mmol/L (98-107); Glucose 310 mg/dL (83-110); Potassium 5.3 mmol/L (3.5-5.1); Sodium 134 mmol/L (136-145)
[2025-07-16] MEDS: Methocarbamol 500 MG TAB PO SCH ×2 (11:17→15:14)
[2025-07-16] MEDS: Insulin Glargine 30 UNITS/0.3 ML VIAL SC SCH ×2 (11:17→20:45)
[2025-07-16 15:26] LABS: Albumin 2.7 g/dL (3.1-4.5); Anion Gap 17 mmol/L (10-20); BUN (Urea Nitrogen) 37 mg/dL (9.8-20.1); BUN/Creatinine Ratio 17.21; Calc. Creatinine Clearance 32 mL/min (70-130); Calcium 8.7 mg/dL (7.8-10.44); Carbon Dioxide 22 mmol/L (23-31); Chloride 100 mmol/L (98-107); Glucose 249 mg/dL (83-110); Potassium 5.3 mmol/L (3.5-5.1); Sodium 134 mmol/L (136-145)
[2025-07-16] MEDS: Heparin 5,000 UNITS/ML VIAL SC SCH (20:46)
[2025-07-17 06:02] LABS: #Basophils Less than 0.03 10x3/uL (0.0-0.2); #Eosinophils 0.39 10x3/uL (0.0-0.7); #Monocytes 1.01 10x3/uL (0.11-0.59); #Neutrophils 7.34 10x3/uL (1.40-6.50); %Basophils 0.2 % (0.0-1.0); %Eosinophils 3.6 % (0.0-10.0); %Lymphocytes 18.0 % (21.0-51.0); %Monocytes 9.4 % (0.0-10.0); %Neutrophils 68.5 % (42.0-75.0); Hematocrit 27.5 % (36.0-47.0); Hemoglobin 7.9 g/dL (12.0-16.0); Mean Corpuscular Hemoglobin 24.5 pg (27.0-31.0); Mean Corpuscular Volume 85.4 fL (78.0-98.0); Platelet Count 220 10x3/uL (130-400); Red Blood Cell (RBC) Count 3.22 mill/uL (4.20-5.40); White Blood Cell (WBC) Count 10.72 10x3/uL (4.8-10.8)
[2025-07-17 06:08] LABS: Anion Gap 15 mmol/L (10-20); BUN (Urea Nitrogen) 36 mg/dL (9.8-20.1); Calc. Creatinine Clearance 35 mL/min (70-130); Calcium 8.2 mg/dL (7.8-10.44); Carbon Dioxide 24 mmol/L (23-31); Chloride 100 mmol/L (98-107); Glucose 182 mg/dL (83-110); Potassium 4.7 mmol/L (3.5-5.1); Sodium 134 mmol/L (136-145)
[2025-07-17 06:13] LABS: Iron 11 ug/dL (50-170); Iron Binding Capacity, Total 159 mcg/dL (265-497)
[2025-07-17] MEDS ORDERED: Epoetin (ESRD) 10,000 UNITS/ML VIAL SC SCH (08:15)
[2025-07-17] MEDS ORDERED: Insulin Glargine 30 UNITS/0.3 ML VIAL SC SCH (09:00)
[2025-07-17] MEDS: Sodium Ferric Gluconate 250 MG in Sodium Chloride 0.9% 250 ML 250 ML IVPB SCH (11:21)
[2025-07-17 12:22] VITALS: BP 152/70; TEMP 97.7
[2025-07-17] MEDS: EPOETIN ALFA-EPBX (ESRD) 10,000 UNITS/ML VIAL SC SCH (14:26)
[2025-07-17] MEDS: Albumin 25% 25 GM (100 mL) BOT IVPB SCH (14:26)
== END 2025-07-17 16:42 | DRG 522 ==
LOC: ERS 07:55 → 2NO 12:14 → SURG A 07-16 16:31
PROVIDERS: ADMIT Colon & Rectal Surgery; ATTEND Internal Medicine
PROC: 3E03329 Introduction of Other Anti-infective into Peripheral Vein, Percutaneous Approach (ICD-10-PCS; 2025-07-14)
PROC: 0SRR0JA Replacement of Right Hip Joint, Femoral Surface with Synthetic Substitute, Uncemented, Open Approach (ICD-10-PCS; principal; 2025-07-15)
PROC: 30233J1 Transfusion of Nonautologous Serum Albumin into Peripheral Vein, Percutaneous Approach (ICD-10-PCS; 2025-07-17)
DX: S72.011A Unspecified intracapsular fracture of right femur, initial encounter for closed fracture (principal); N39.0 Urinary tract infection, site not specified; E87.20 Acidosis, unspecified; N17.9 Acute kidney failure, unspecified; W19.XXXA Unspecified fall, initial encounter; E78.5 Hyperlipidemia, unspecified; M35.3 Polymyalgia rheumatica; I25.10 Atherosclerotic heart disease of native coronary artery without angina pectoris; E03.9 Hypothyroidism, unspecified; F17.210 Nicotine dependence, cigarettes, uncomplicated; D63.1 Anemia in chronic kidney disease; E87.5 Hyperkalemia; N18.30 Chronic kidney disease, stage 3 unspecified; E11.65 Type 2 diabetes mellitus with hyperglycemia; E11.22 Type 2 diabetes mellitus with diabetic chronic kidney disease; I12.9 Hypertensive chronic kidney disease with stage 1 through stage 4 chronic kidney disease, or unspecified chronic kidney disease; Z88.8 Allergy status to other drugs, medicaments and biological substances; Z95.1 Presence of aortocoronary bypass graft; Z98.890 Other specified postprocedural states; Z90.710 Acquired absence of both cervix and uterus; Z98.51 Tubal ligation status; Z95.5 Presence of coronary angioplasty implant and graft; Z79.82 Long term (current) use of aspirin; Z79.899 Other long term (current) drug therapy
CPT/HCPCS: 36415; 36416; 71045; 72170; 80048; 80053; 81001; 82040; 82043; 82728; 83540; 83550; 84300; 84443; 85025; 85610; 85730; 87086; 93005; 93306; 96374; A4217; C1713; C1776; G0390; J0360; J0612; J0690; J0696; J1100; J1644; J1815; J2405; J2704; J2916; J3010; J7030; J7050; J7070; J7512; J7999; P9047; Q5105

== ENCOUNTER 2025-08-05 10:46 | Inpatient (IN) | payer MEDICARE ==
[2025-08-05 11:54] LABS: #Basophils 0.05 10x3/uL (0.0-0.2); #Eosinophils 0.45 10x3/uL (0.0-0.7); #Monocytes 0.53 10x3/uL (0.11-0.59); #Neutrophils 8.47 10x3/uL (1.40-6.50); %Basophils 0.4 % (0.0-1.0); %Eosinophils 4.0 % (0.0-10.0); %Lymphocytes 15.7 % (21.0-51.0); %Monocytes 4.7 % (0.0-10.0); %Neutrophils 74.8 % (42.0-75.0); Hematocrit 32.0 % (36.0-47.0); Hemoglobin 9.0 g/dL (12.0-16.0); Mean Corpuscular Hemoglobin 24.3 pg (27.0-31.0); Mean Corpuscular Volume 86.5 fL (78.0-98.0); Platelet Count 313 10x3/uL (130-400); Red Blood Cell (RBC) Count 3.70 mill/uL (4.20-5.40); White Blood Cell (WBC) Count 11.33 10x3/uL (4.8-10.8)
[2025-08-05 12:16] LABS: Anisocytosis SLIGHT = 6-15 cells HPF (0-5); Platelet Adequacy Comment Platelets Normal; Polychromasia SLIGHT = 2-3 cells HPF (0-2)
[2025-08-05 12:23] LABS: ALT (SGPT) 41 U/L (Less than 34); AST (SGOT) 26 U/L (11-34); Albumin 2.9 g/dL (3.1-4.5); Alkaline Phosphatase 119 U/L (40-110); Anion Gap 18 mmol/L (10-20); BUN (Urea Nitrogen) 48 mg/dL (9.8-20.1); Bilirubin, Total 0.3 mg/dL (0.3-1.2); Calc. Creatinine Clearance 0 mL/min (70-130); Calcium 9.0 mg/dL (7.8-10.44); Carbon Dioxide 22 mmol/L (23-31); Chloride 106 mmol/L (98-107); Globulin 4.6 g/dL (2.4-3.5); Glucose 146 mg/dL (83-110); Potassium 6.8 mmol/L (3.5-5.1); Sodium 139 mmol/L (136-145)
[2025-08-05] MEDS ORDERED: CALCIUM GLUC 1 GM/NS 50 ML IV Bag ONE (12:46)
[2025-08-05] MEDS ORDERED: Furosemide 40 MG (4 mL) VIAL ONE (13:01)
[2025-08-05] MEDS ORDERED: Dextrose 50% Abboject 50 ML SYRINGE ONE (13:03)
[2025-08-05] MEDS ORDERED: Senokot S 8.6-50 MG TAB PO PRN (13:38)
[2025-08-05] MEDS ORDERED: Melatonin 3 MG TAB PO PRN (13:38)
[2025-08-05] MEDS ORDERED: Ondansetron PF 4 MG/2 ML Vial IVP PRN (13:38)
[2025-08-05] MEDS ORDERED: Bisacodyl 10 MG SUPP PR PRN (13:38)
[2025-08-05] MEDS ORDERED: Dextrose 50% Abboject 50 ML SYRINGE SLOW IVP PRN (13:51)
[2025-08-05] MEDS ORDERED: Glucagon 1 MG/ML KIT IM PRN (13:51)
[2025-08-05 15:43] VITALS: BMI 29.6
[2025-08-05] MEDS: LOKELMA 10 GM PACKET PO SCH ×2 (15:56→20:13)
[2025-08-05] MEDS: Sodium Polystyrene Sulfonate 15 GM (60 mL) BOT PO SCH (17:46)
[2025-08-05 18:10] LABS: Anion Gap 16 mmol/L (10-20); BUN (Urea Nitrogen) 45 mg/dL (9.8-20.1); Calc. Creatinine Clearance 35 mL/min (70-130); Calcium 9.6 mg/dL (7.8-10.44); Carbon Dioxide 20 mmol/L (23-31); Chloride 105 mmol/L (98-107); Glucose 167 mg/dL (83-110); Potassium 6.2 mmol/L (3.5-5.1); Sodium 135 mmol/L (136-145)
[2025-08-05] MEDS: Heparin 5,000 UNITS/ML VIAL SC SCH (20:04)
[2025-08-05 23:52] LABS: Anion Gap 15 mmol/L (10-20); BUN (Urea Nitrogen) 44 mg/dL (9.8-20.1); Calc. Creatinine Clearance 32 mL/min (70-130); Calcium 8.7 mg/dL (7.8-10.44); Carbon Dioxide 24 mmol/L (23-31); Chloride 103 mmol/L (98-107); Glucose 239 mg/dL (83-110); Potassium 4.7 mmol/L (3.5-5.1); Sodium 137 mmol/L (136-145)
[2025-08-06 05:58] LABS: Albumin 2.6 g/dL (3.1-4.5); Anion Gap 15 mmol/L (10-20); BUN (Urea Nitrogen) 42 mg/dL (9.8-20.1); BUN/Creatinine Ratio 19.63; Calc. Creatinine Clearance 33 mL/min (70-130); Calcium 9.1 mg/dL (7.8-10.44); Carbon Dioxide 27 mmol/L (23-31); Chloride 102 mmol/L (98-107); Glucose 155 mg/dL (83-110); Potassium 4.8 mmol/L (3.5-5.1); Sodium 139 mmol/L (136-145)
[2025-08-06] MEDS: Albumin 25% 25 GM (100 mL) BOT IVPB SCH ×2 (06:53→11:42)
[2025-08-06] MEDS: PNEUMOC 20-VAL CONJ-DIP CRM/PF 0.5 ML SYRINGE IM ONE (09:38)
[2025-08-06] MEDS: Sodium Bicarbonate Tab 325 MG TAB PO SCH (09:38)
[2025-08-06] MEDS: Acetaminophen 325 MG TAB PO PRN (23:02)
[2025-08-07 05:34] LABS: Albumin 3.8 g/dL (3.1-4.5); Anion Gap 19 mmol/L (10-20); BUN (Urea Nitrogen) 46 mg/dL (9.8-20.1); BUN/Creatinine Ratio 21.70; Calc. Creatinine Clearance 33 mL/min (70-130); Calcium 9.6 mg/dL (7.8-10.44); Carbon Dioxide 24 mmol/L (23-31); Chloride 105 mmol/L (98-107); Glucose 157 mg/dL (83-110); Potassium 5.0 mmol/L (3.5-5.1); Sodium 143 mmol/L (136-145)
[2025-08-07 07:56] LABS: #Basophils 0.04 10x3/uL (0.0-0.2); #Eosinophils 0.59 10x3/uL (0.0-0.7); #Monocytes 0.52 10x3/uL (0.11-0.59); #Neutrophils 3.87 10x3/uL (1.40-6.50); %Basophils 0.6 % (0.0-1.0); %Eosinophils 8.5 % (0.0-10.0); %Lymphocytes 27.5 % (21.0-51.0); %Monocytes 7.5 % (0.0-10.0); %Neutrophils 55.6 % (42.0-75.0); Hematocrit 27.7 % (36.0-47.0); Hemoglobin 8.0 g/dL (12.0-16.0); Mean Corpuscular Hemoglobin 24.8 pg (27.0-31.0); Mean Corpuscular Volume 86.0 fL (78.0-98.0); Platelet Count 270 10x3/uL (130-400); Red Blood Cell (RBC) Count 3.22 mill/uL (4.20-5.40); White Blood Cell (WBC) Count 6.95 10x3/uL (4.8-10.8)
[2025-08-07 09:01] LABS: Anisocytosis SLIGHT = 6-15 cells HPF (0-5); Platelet Adequacy Comment Platelets Normal; Polychromasia SLIGHT = 2-3 cells HPF (0-2)
[2025-08-07] MEDS: Dapagliflozin Propanediol 10 MG TAB PO SCH (09:42)
[2025-08-07] MEDS: LOKELMA 10 GM PACKET PO SCH (09:42)
[2025-08-07] MEDS: Sodium Bicarbonate Tab 325 MG TAB PO SCH (09:42)
[2025-08-07] MEDS: Sodium Ferric Gluconate 250 MG in Sodium Chloride 0.9% 250 ML 250 ML IVPB SCH (09:52)
[2025-08-07] MEDS: hydrALAZINE 20 MG/ML VIAL SLOW IVP SCH (09:52)
[2025-08-07] MEDS: EPOETIN ALFA-EPBX (ESRD) 10,000 UNITS/ML VIAL SC SCH (11:04)
[2025-08-07] MEDS ORDERED: HYDROcodone/Acetaminophen 5/325 mg Tablet PO PRN (11:15)
[2025-08-07] MEDS: Methocarbamol 500 MG TAB PO SCH (13:19)
[2025-08-07] MEDS: Sertraline 100 MG TAB PO SCH (13:19)
[2025-08-08 07:43] LABS: #Basophils 0.05 10x3/uL (0.0-0.2); #Eosinophils 0.63 10x3/uL (0.0-0.7); #Monocytes 0.67 10x3/uL (0.11-0.59); #Neutrophils 4.55 10x3/uL (1.40-6.50); %Basophils 0.6 % (0.0-1.0); %Eosinophils 7.8 % (0.0-10.0); %Lymphocytes 26.4 % (21.0-51.0); %Monocytes 8.3 % (0.0-10.0); %Neutrophils 56.4 % (42.0-75.0); Hematocrit 30.2 % (36.0-47.0); Hemoglobin 8.6 g/dL (12.0-16.0); Mean Corpuscular Hemoglobin 24.7 pg (27.0-31.0); Mean Corpuscular Volume 86.8 fL (78.0-98.0); Platelet Count 300 10x3/uL (130-400); Red Blood Cell (RBC) Count 3.48 mill/uL (4.20-5.40); White Blood Cell (WBC) Count 8.07 10x3/uL (4.8-10.8)
[2025-08-08] MEDS: Sertraline 100 MG TAB PO SCH (08:44)
[2025-08-08 09:01] LABS: Albumin 3.7 g/dL (3.1-4.5); Anion Gap 16 mmol/L (10-20); BUN (Urea Nitrogen) 44 mg/dL (9.8-20.1); BUN/Creatinine Ratio 23.78; Calc. Creatinine Clearance 38 mL/min (70-130); Calcium 9.8 mg/dL (7.8-10.44); Carbon Dioxide 23 mmol/L (23-31); Chloride 106 mmol/L (98-107); Glucose 134 mg/dL (83-110); Potassium 4.6 mmol/L (3.5-5.1); Sodium 140 mmol/L (136-145)
[2025-08-08 13:12] VITALS: BP 148/74; TEMP 98.2
[2025-08-09] MEDS ORDERED: NIFEdipine XL 60 MG ER.TAB PO SCH (09:00)
== END 2025-08-08 14:05 | DRG 683 ==
LOC: ERS 10:46 → 2NO 13:42 → OBSVTOIN 08-06 14:05 → MSONC 08-07 15:02
PROVIDERS: ADMIT Internal Medicine; ATTEND Internal Medicine
PROC: 30233J1 Transfusion of Nonautologous Serum Albumin into Peripheral Vein, Percutaneous Approach (ICD-10-PCS; principal; 2025-08-06)
DX: N17.9 Acute kidney failure, unspecified (principal); E87.21 Acute metabolic acidosis; E87.5 Hyperkalemia; E78.5 Hyperlipidemia, unspecified; I25.10 Atherosclerotic heart disease of native coronary artery without angina pectoris; Z98.890 Other specified postprocedural states; Z95.1 Presence of aortocoronary bypass graft; E03.9 Hypothyroidism, unspecified; M35.3 Polymyalgia rheumatica; Z88.8 Allergy status to other drugs, medicaments and biological substances; Z91.048 Other nonmedicinal substance allergy status; D63.1 Anemia in chronic kidney disease; I12.9 Hypertensive chronic kidney disease with stage 1 through stage 4 chronic kidney disease, or unspecified chronic kidney disease; N18.30 Chronic kidney disease, stage 3 unspecified; E11.21 Type 2 diabetes mellitus with diabetic nephropathy; Z79.899 Other long term (current) drug therapy; Z79.890 Hormone replacement therapy
CPT/HCPCS: 36415; 36416; 80048; 80069; 82550; 85025; 85027; 93005; 96372; 96374; 96375; 96376; A4217; G0378; J0360; J0613; J1644; J1815; J1940; J2916; J7050; J7999; P9047; Q5105